=== PATIENT | female | born 1960 | race Two or more races ===

== ENCOUNTER → 2024-03-13 | Outpatient (CLI) | payer MEDICAID ==
[2024-03-13 15:32] LABS: Urine Amorphous Crystal FEW /hpf (None Seen); Urine Bacteria MANY /hpf (None Seen); Urine Blood 2+ /uL (Negative); Urine Clarity Turbid (Clear); Urine Color Colorless (Yellow); Urine Protein, UAD 2+ (Negative); Urine Specific Gravity 1.005 (1.001-1.035); Urine Urobilinogen Normal (Negative); Urine WBC 82 /hpf (0 - 5); Urine WBC Clumps PRESENT /hpf (None Seen); Urine pH 6.5 (5.0-9.0)
== END | disposition home or self-care (01) ==
LOC: LAB 14:58
PROVIDERS: ATTEND Urology
DX: R39.0 Extravasation of urine (principal)
CPT/HCPCS: 81001; 87086

== ENCOUNTER 2024-04-11 09:36 | Inpatient (IN) | payer OTHER, MEDICAID ==
[~2024-04-11] VITALS: Ht 154.9 cm; Wt 81.0 kg
[2024-04-11 12:50] LABS: Basophils # (auto) 0.1 10 ^3/uL (0-0.2); Basophils % (auto) 0.7 % (0.0-2.0); Eosinophils # (auto) 0.4 10 ^3/uL (0-0.8); Eosinophils % (auto) 4.5 % (0.0-7.0); Hematocrit 35.3 % (36.0-46.0); Hemoglobin 11.1 g/dL (12.2-16.2); Lymphocytes # (auto) 1.4 10 ^3/uL (0.4-5.4); Lymphocytes % (auto) 15.5 % (10.0-50.0); Mean Corpuscular Hemoglobin 26.4 pg (28.0-32.0); Mean Corpuscular Hgb Conc. 31.5 g/dL (32.0-36.0); Mean Corpuscular Volume 83.8 fL (80.0-100.0); Monocytes # (auto) 0.3 10 ^3/uL (0-1.3); Monocytes % (auto) 3.4 % (0.0-12.0); Neutrophils % (auto) 75.9 % (37.0-80.0); Platelet Count (auto) 390 10^3/uL (140-450); Red Blood Cells 4.22 10^6/uL (4.0-5.20); Red Cell Distribution Width 18.2 % (11.8-14.3); White Blood Cell 9.3 10^3/uL (4.4-10.8)
--- NOTE | 2024-04-11 13:04 | ED.PDOC ---
History of Present Illness HPI Comments 63 y.o female presents to the ED for an evaluation of her nephrostomy tube. Patient reports she had nephrostomy tube placed on 01/2024 at a hospital in [place] s/p admission for kidney stones. Patient reports she was seen by Dr. Sunshine 2 weeks ago, was told they wanted a CT scan to make sure the kidney stone was no longer there before taking it out. Patient presents today stating she wants the tube removed as Dr. Sunshine's office nurse told her she can come in to any ED to get it removed. Patient reports allergies to Vitals BP: 133/51 HR: 75 Temp: 98.5 f SPO2: 95% RA RR: 18 Past medical history: clubs foot, DM, seizure, arthritis, depression Past surgical history: Cholecystectomy DE GUZMAN HPI: Poor Historian. Past Medcial History: Past Surgical History: REVIEW OF SYSTEMS: CONSTITUTIONAL: Denies acute: fever, diaphoresis, chills, generalized weakness. HEAD: Denies acute: headache, photophobia Eyes: Denies acute: Double vision, vision loss, eye pain, eye discharge. EARS: Denies acute: tinnitus, hearing loss, ear discharge, ear pain, THROAT: Denies acute: sore throat, swelling, difficulty swallowing , pain with swallowing, change in voice. NECK: Denies acute: neck pain, neck swelling, stiff neck. HEART: Denies acute : chest pain, palpitations, LUNGS: Denies acute: SOB, wheezing, cough, hemoptysis ABDOMEN: Denies acute: abdominal pain, Nausea, Vomiting, diarrhea, melena , hematemesis, hematochezia SKIN: Denies acute: rash, redness, lesions, itchiness. EXTREMITIES: Denies acute: calf pain, numbness, tingling, weakness, denies pain in extremity. Denies acute: Low back pain. Neuro: Denies acute: focal neurological deficit, motor or sensory focal neurological deficit, tremors, seizure like activity, confusion, dizziness, change in mental status, loss of bowel or bladder function, cauda equina like symptoms. : Denies acute: dysuria, hematuria, flank pain, increase in urinary frequency. PSYCH: Denies acute: hallucination, suicidal ideation, homicidal ideation. FEMALE: Denies acute: abnormal vaginal bleeding, foul odor, unusual discharge. PHYSICAL EXAM: General: no acute distress, awake and alert. Head: normocephalic, atraumatic. Neck: supple, trachea is midline, no swelling. Throat: Normal phonation. Eyes:, no erythema, no purulent discharge, no proptosis, no icterus. Heart: regular rate, regular rhythm, no significant murmur appreciated. Lungs: no apparent respiratory distress, Able to speak in full sentences. No wheezing, no rhonchi, no crackles. No stridors Clear to auscultation bilaterally. Abdomen: non tender to palpation, non distended, soft, no guarding, no rebound, + bowel sounds. Neuro: Awake, Alert, oriented to name, self, situation, follows commands GCS=15. Speech is normal. Skin: no petechia, no purpura, no cyanosis, non-pale, not jaundice. Lower extremities: --trace- Pitting edema no deformity, no focal swelling, no calf TTP. Makes eye contact. moves all four extremities. Face: no apparent facial droop. Noted right nephrostomy tube in place. Chief Complaint: Tube Replacement Time Seen by MD: 12:24 Reviewed Notes: Nurses Notes, Allergies Allergies: Coded Allergies: Codeine (Verified Allergy, Unknown, 04/11/24) Penicillins (Verified Allergy, Unknown, 04/11/24) Home Meds Reported Medications Insulin Glargine (Basaglar Kwikpen) 100 Unit/Ml Inj, 20 UNIT SC HS 04/11/24 Glimepiride (Glimepiride) 4 Mg Tab, 1 TAB PO BID 04/11/24 Metformin Hydrochloride (Metformin Hcl) 1,000 Mg Tab, 1 TAB PO BID 04/11/24 Losartan Potassium (Losartan Potassium) 100 Mg Tab, 1 TAB PO DAILY 04/11/24 Atorvastatin Calcium (ATORVASTATIN CALCIUM) 40 Mg Tab, 1 TAB PO HS 04/11/24 Montelukast Sodium (MONTELUKAST SODIUM) 10 Mg Tab, 1 TAB PO DAILY 04/11/24 Pantoprazole Sodium Sesquihydr (Pantoprazole Sodium) 40 Mg Tab, 1 TAB PO QAM 04/11/24 Sucralfate (Sucralfate) 1 Gm Tab, 1 TAB PO TID 04/11/24 Sertraline Hcl (Sertraline Hcl) 100 Mg Tab, 1 TAB PO BID 04/11/24 Discontinued Scripts Levofloxacin Hemihydrate (LEVAQUIN 500 MG) 500 Mg Tab, 500 MG PO DAILY for 7 Days, #7 TAB Prov:ANITHA HIDALGO DO 04/11/24 Information Source: Patient Mode of Arrival: Ambulatory Past Medical History PAST MEDICAL HISTORY: Arthritis, Depression, DM, HTN, Seizures Surgical History: 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 Was a procedure done?: No Differential Dx Considerations may include: Sepsis, UTI, hydronephrosis, obstruction, pyelonephritis, X-Ray, Labs, Meds, VS Vital Signs Date Time Temp Pulse Resp B/P (MAP) Pulse Ox O2 Delivery O2 Flow Rate FiO2 04/11/24 10:04 98.5 75 18 133/51 (78) 95 98.5 04/11/24 10:04 98.5 75 18 133/51 (78) 95 Lab Test 04/11/24 15:35 04/11/24 15:05 04/11/24 12:27 Range/Units Lactic Acid Level 3.9 *H 2.9 *H 0.4-2.0 mmol/L Urine Color Light-brown Yellow Urine Clarity Ex.turbid Clear Urine pH 6.0 5.0-9.0 Urine Specific [place] 1.008 1.001-1.035 Urine Protein 2+ H Negative Urine Ketones Negative Negative Urine Blood 1+ H Negative /uL Urine Nitrite Negative Negative Urine Bilirubin Negative Negative Urine Urobilinogen Normal Negative mg/dL Urine Leukocyte Esterase 3+ Negative /uL Urine RBC 49 0 - 4 /hpf Urine WBC 432 0 - 5 /hpf Urine WBC Clumps Present None Seen /hpf Urine Squamous Epithelial Cells None seen <5 /hpf Urine Bacteria Mod H None Seen /hpf Urine Mucus Few None Seen Urine Glucose Normal Normal mg/dL White Blood Count 9.3 4.4-10.8 10^3/uL Red Blood Count 4.22 4.0-5.20 10^6/uL Hemoglobin 11.1 L 12.2-16.2 g/dL Hematocrit 35.3 L 36.0-46.0 % Mean Corpuscular Volume 83.8 80.0-100.0 fL Mean Corpuscular Hemoglobin 26.4 L 28.0-32.0 pg Mean Corpuscular Hemoglobin Concent 31.5 L 32.0-36.0 g/dL Red Cell Distribution Width 18.2 H 11.8-14.3 % Platelet Count 390 140-450 10^3/uL Mean Platelet Volume 7.6 6.9-10.8 fL Neutrophils (%) (Auto) 75.9 37.0-80.0 % Lymphocytes (%) (Auto) 15.5 10.0-50.0 % Monocytes (%) (Auto) 3.4 0.0-12.0 % Eosinophils (%) (Auto) 4.5 0.0-7.0 % Basophils (%) (Auto) 0.7 0.0-2.0 % Neutrophils # (Auto) 7.0 1.6-8.6 10 ^3/uL Lymphocytes # (Auto) 1.4 0.4-5.4 10 ^3/uL Monocytes # (Auto) 0.3 0-1.3 10 ^3/uL Eosinophils # (Auto) 0.4 0-0.8 10 ^3/uL Basophils # (Auto) 0.1 0-0.2 10 ^3/uL Nucleated Red Blood Cells 0.0 % Sodium Level 139 136-145 mmol/L Potassium Level 4.6 3.5-5.1 mmol/L Chloride Level 107 98-107 mmol/L Carbon Dioxide Level 21 20-31 mmol/L Anion Gap 11 5-15 Blood Urea Nitrogen 27 H 9-23 mg/dL Creatinine 1.83 H 0.550-1.02 mg/dL Glomerular Filtration Rate Calc 31 >90 mL/min BUN/Creatinine Ratio 14.8 10.0-20.0 Serum Glucose 188 H 74-106 mg/dL Calcium Level 10.2 8.7-10.4 mg/dL Total Bilirubin 0.6 0.2-1.0 mg/dL Aspartate Amino Transferase (AST) 20 13-40 U/L Alanine Aminotransferase (ALT) 26 7-40 U/L Alkaline Phosphatase 140 H 46-116 U/L Total Protein 7.0 5.7-8.2 g/dL Albumin 4.4 3.2-4.8 g/dL Current Medications Medications (Trade) Dose Ordered Sig/Hilda Route Start Time Stop Time Status Last Admin Sodium Chloride 1,000 ml @ 1,000 mls/hr Q1H ONCE IV 11/22/24 13:45 04/11/24 14:44 DC 04/11/24 17:12 Levofloxacin (Levaquin Tablet) 500 mg ONCE ONCE PO 04/11/24 13:45 04/11/24 13:46 DC 04/11/24 17:16 Sodium Chloride 1,000 ml @ 1,000 mls/hr Q1H ONCE IV 04/11/24 16:15 04/11/24 17:14 DC 04/11/24 17:16 [place] [address] Ph: [phone] DIAGNOSTIC IMAGING Diagnostic Imaging Report : [id number] Signed PATIENT: LOUIS DE GUZMAN ACCT: [id number] UNIT: [id number] : 1960 LOC: ER ROOM / BED: / AGE / SEX: 63 / F ADM STATUS: REG ER SERVICE 1232 ORDERING PHYSICIAN: ANITHA HIDALGO DO PROCEDURE(s): ABPL - CT AB PEL WO CON-NO ORAL OR IV REASON: NEPHROSTOMY TUBE, KID STONE ORDER NUMBER(s): [id number], ACCESSION NUMBER(s): [id number] Procedure: CT CT AB PEL WO CON-NO ORAL OR IV 04/11/2024 12:34 PM Indication: NEPHROSTOMY TUBE, KID STONE Comparison Study: None available at time of dictation. Technique: Axial images were obtained and reformatted in coronal and sagittal planes. All CT scans at this medical facility are performed using dose modulation techniques as appropriate to a performed exam including the following: Automated exposure control was utilized; adjustment of the MA and/or KV according to patient size; and use of iterative reconstruction technique. CT Dose: CTDI volume is 15.18 mGy. Dose-length product is 779.8 mGy*cm FINDINGS: Lower Chest: Unremarkable. Hepatobiliary: Unremarkable. Spleen: Unremarkable. Pancreas: Unremarkable. Adrenal Glands: Mild bilateral adrenal hyperplasia. Few subcentimeter calcifications are seen in the left adrenal gland reflecting sequela of prior hemorrhage. tract: A 1.4 cm obstructing stone is seen in the left renal pelvis. A pigtail percutaneous drainage catheter is seen in the right renal inferior calyx. There is mild right hydronephrosis. Small amount of air is seen in the right renal pelvis related to recent instrumentation. Small amount of air is seen in the bladder lumen. No bladder wall thickening. No Gómez catheter is noted. The left kidney contains a subcentimeter stone in the lower pole and few small cysts that measure up to 1.3 cm. GI tract: Moderate-sized sliding hiatal hernia. No evidence of small bowel obstruction. The large bowel is unremarkable. The appendix is normal. Lymphatics: No mesenteric, retroperitoneal or periportal lymphadenopathy. Vasculature: The abdominal aorta is normal in in caliber. Pelvic Organs: Anteverted uterus. A 2.3 cm calcification is seen the uterine fundus. Bones/soft tissues: Defects. Mild levoscoliosis of the lumbar spine noted. Other: None. IMPRESSION: 1. Mild residual right hydronephrosis due to a 1.4 cm obstructing stone in the right renal pelvis. Percutaneous right renal drainage catheter terminates in the lower pole calyx. There is no hydroureter. 2. A subcentimeter nonobstructive left renal stone is seen. 3. Moderate-sized sliding hiatal hernia. 4. Myomatous uterus. ATED BY: SUSAN WHITEHEAD MD DICTATED DATE/TIME: 04/11/241323 SIGNED BY: SUSAN WHITEHEAD MD SIGNED DATE/TIME: 04/11/241323 CC: Time of 1ST Reevaluation: 13:03 Reevaluation 1ST: Unchanged Time of 2ND Reevaluation: 16:29 (The case was discussed with the urology team (HPI, physical exam, labs and diagnostic tests that were available at the time of disposition, ED course, treatment plan) on the phone. They agreed to come and evaluate the patient in the ED. VLADISLAV Lee/dr. Sunshine. They recommend not to remove the nephrostomy tube at this time) Patient Education/Counseling: Diagnosis, Treatment Family Education/Counseling: No Family Present Comments Patient presented with the above HPI.---nephrostomy tube problem---workup was initiated. patient was found with the above mentioned diagnosis. Patient was given: Levaquin and fluids. Patient ED course and VS have been stabilized. Patient has been reassessed in the ED and remained in a stable condition. Pertinent incidental findings were discussed with the patient and/or family. Patient/family voices understanding and is agreeable with plan. Patient has been observed in the ED adequate length of time to insure improvement/stability. Urology was consulted who came and evaluated the patient at bedside recommended admission to the hospital. patient was admitted to the medicine team for further evaluation and treatment of their presentation. All the reports of any imaging studies that were ordered by myself were reviewed by myself. Departure 1 Departure Time of Disposition: 16:04 Impression: Primary Impression: H/O insertion of nephrostomy tube Additional Impressions: Elevated lactic acid level Sepsis UTI (urinary tract infection) Disposition: ADMITTED INPATIENT Admit to: Tele Condition: Guarded Additional Instructions: [place] [address] Ph: [phone] DIAGNOSTIC IMAGING Diagnostic Imaging Report : [id number] Signed PATIENT: LOUIS DE GUZMAN ACCT: [id number] UNIT: [id number] : 1960 LOC: ER ROOM / BED: / AGE / SEX: 63 / F ADM STATUS: REG ER SERVICE 1232 ORDERING PHYSICIAN: ANITHA HIDALGO DO PROCEDURE(s): ABPL - CT AB PEL WO CON-NO ORAL OR IV REASON: NEPHROSTOMY TUBE, KID STONE ORDER NUMBER(s): [id number], ACCESSION NUMBER(s): [id number] Procedure: CT CT AB PEL WO CON-NO ORAL OR IV 04/11/2024 12:34 PM Indication: NEPHROSTOMY TUBE, KID STONE Comparison Study: None available at time of dictation. Technique: Axial images were obtained and reformatted in coronal and sagittal planes. All CT scans at this medical facility are performed using dose modulation techniques as appropriate to a performed exam including the following: Automated exposure control was utilized; adjustment of the MA and/or KV according to patient size; and use of iterative reconstruction technique. CT Dose: CTDI volume is 15.18 mGy. Dose-length product is 779.8 mGy*cm FINDINGS: Lower Chest: Unremarkable. Hepatobiliary: Unremarkable. Spleen: Unremarkable. Pancreas: Unremarkable. Adrenal Glands: Mild bilateral adrenal hyperplasia. Few subcentimeter calcifications are seen in the left adrenal gland reflecting sequela of prior hemorrhage. tract: A 1.4 cm obstructing stone is seen in the left renal pelvis. A pigtail percutaneous drainage catheter is seen in the right renal inferior calyx. There is mild right hydronephrosis. Small amount of air is seen in the right renal pelvis related to recent instrumentation. Small amount of air is seen in the bladder lumen. No bladder wall thickening. No Gómez catheter is noted. The left kidney contains a subcentimeter stone in the lower pole and few small cysts that measure up to 1.3 cm. GI tract: Moderate-sized sliding hiatal hernia. No evidence of small bowel obstruction. The large bowel is unremarkable. The appendix is normal. Lymphatics: No mesenteric, retroperitoneal or periportal lymphadenopathy. Vasculature: The abdominal aorta is normal in in caliber. Pelvic Organs: Anteverted uterus. A 2.3 cm calcification is seen the uterine fundus. Bones/soft tissues: Defects. Mild levoscoliosis of the lumbar spine noted. Other: None. IMPRESSION: 1. Mild residual right hydronephrosis due to a 1.4 cm obstructing stone in the right renal pelvis. Percutaneous right renal drainage catheter terminates in the lower pole calyx. There is no hydroureter. 2. A subcentimeter nonobstructive left renal stone is seen. 3. Moderate-sized sliding hiatal hernia. 4. Myomatous uterus. ATED BY: SUSAN WHITEHEAD MD DICTATED DATE/TIME: 04/11/24 1324 SIGNED BY: SUSAN WHITEHEAD MD SIGNED DATE/TIME: 04/11/24 1324 CC: Discharged With: Self Critical Care Note Critical Care Time?: No I personally scribed for ANITHA HIDALGO DO ([email or web address]) on 04/11/24 at 13:04. Electronically submitted by Vida Pena ([facility]). I personally scribed for ANITHA HIDALGO DO ([email or web address]) on 04/11/24 at 16:07. Electronically submitted by Vida Pena ([facility]). I personally scribed for ANITHA HIDALGO DO ([email or web address]) on 04/11/24 at 16:12. Electronically submitted by Vida Pena ([facility]). I personally scribed for ANITHA HIDALGO DO ([email or web address]) on 04/11/24 at 16:38. Electronically submitted by Vida Pena ([facility]). ANITHA HIDALGO DO Apr 11, 2024 13:04
[2024-04-11 13:18] LABS: Alanine Aminotransferase 26 U/L (7-40); Albumin 4.4 g/dL (3.2-4.8); Alkaline Phosphatase 140 U/L (46-116); Anion Gap 11 (5-15); Aspartate Aminotransferase 20 U/L (13-40); BUN/Creatinine Ratio 14.8 (10.0-20.0); Blood Urea Nitrogen 27 mg/dL (9-23); Calcium 10.2 mg/dL (8.7-10.4); Carbon Dioxide 21 mmol/L (20-31); Chloride 107 mmol/L (98-107); Glucose 188 mg/dL (74-106); Potassium 4.6 mmol/L (3.5-5.1); Sodium 139 mmol/L (136-145)
[2024-04-11 13:19] LABS: Bilirubin, Total 0.6 mg/dL (0.2-1.0)
[2024-04-11 13:26] LABS: Lactic Acid w/Reflex 2.9 mmol/L (0.4-2.0)
--- NOTE | 2024-04-11 13:26 | DVH ---
Procedure: CT CT AB PEL WO CON-NO ORAL OR IV 04/11/2024 12:34 PM Indication: NEPHROSTOMY TUBE, KID STONE Comparison Study: None available at time of dictation. Technique: Axial images were obtained and reformatted in coronal and sagittal planes. All CT scans at this medical facility are performed using dose modulation techniques as appropriate t o a performed exam including the following: Automated exposure control was utilized; adjustment of th e MA and/or KV according to patient size; and use of iterative reconstruction technique. CT Dose: CTDI volume is 15.18 mGy. Dose-length product is 779.8 mGy*cm FINDINGS: Lower Chest: Unremarkable. Hepatobiliary: Unremarkable. Spleen: Unremarkable. Pancreas: Unremarkable. Adrenal Glands: Mild bilateral adrenal hyperplasia. Few subcentimeter calcifications are seen in the left adrenal gland reflecting sequela of prior hemorrhage. tract: A 1.4 cm obstructing stone is seen in the left renal pelvis. A pigtail percutaneous draina ge catheter is seen in the right renal inferior calyx. There is mild right hydronephrosis. Small am ount of air is seen in the right renal pelvis related to recent instrumentation. Small amount of air is seen in the bladder lumen. No bladder wall thickening. No Gómez catheter is noted. The left kidn ey contains a subcentimeter stone in the lower pole and few small cysts that measure up to 1.3 cm. GI tract: Moderate-sized sliding hiatal hernia. No evidence of small bowel obstruction. The large bow el is unremarkable. The appendix is normal. Lymphatics: No mesenteric, retroperitoneal or periportal lymphadenopathy. Vasculature: The abdominal aorta is normal in in caliber. Pelvic Organs: Anteverted uterus. A 2.3 cm calcification is seen the uterine fundus. Bones/soft tissues: Defects. Mild levoscoliosis of the lumbar spine noted. Other: None. IMPRESSION: 1. Mild residual right hydronephrosis due to a 1.4 cm obstructing stone in the right renal pelvis. Pe rcutaneous right renal drainage catheter terminates in the lower pole calyx. There is no hydroureter. 2. A subcentimeter nonobstructive left renal stone is seen. 3. Moderate-sized sliding hiatal hernia. 4. Myomatous uterus.
[2024-04-11] MEDS ORDERED: LEVO500T91 PO (16:06)
[2024-04-11 16:38] LABS: Urine Bacteria MOD /hpf (None Seen); Urine Blood 1+ /uL (Negative); Urine Clarity Ex.Turbid (Clear); Urine Color Light-Brown (Yellow); Urine Mucus FEW (None Seen); Urine Protein, UAD 2+ (Negative); Urine Specific Gravity 1.008 (1.001-1.035); Urine Urobilinogen Normal (Negative); Urine WBC 432 /hpf (0 - 5); Urine WBC Clumps PRESENT /hpf (None Seen)
--- NOTE | 2024-04-11 17:08 | DVHINCON2 ---
Date of service: Apr 11, [address] Hidalgo Reason for Consultation nephrostomy tube History of Present Illness History Source: Patient, Family, RN Notes, MD Notes Exam Limitations: No limitations HPI 63 yo female with hx of right sided PCN placement done at [facility] [place] [facility] in January. She is pending lithotripsy with Dr. Carlos Sunshine af ter CT evaluation of stone burden. Her lactate was found to be elevated and she will be admitted for medical management. Home Meds Active Scripts Levofloxacin Hemihydrate (LEVAQUIN 500 MG) 500 Mg Tab, 500 MG PO DAILY for 7 Days, #7 TAB Prov:ANITHA HIDALGO DO 04/11/24 Review of Systems Constitutional: Malaise, Weakness H&P Exam Vital Signs Vital Signs Date Time Temp Pulse Resp B/P (MAP) Pulse Ox O2 Delivery O2 Flow Rate FiO2 04/11/24 10:04 98.5 75 18 133/51 (78) 95 98.5 General Appeara: Well developed, Well nourished, Normal Appearance, Obese Pulmonary/Respiratory: Normal inspection, Normal breath sounds, Chest non- tender, Lungs clear Cardiovascular/Chest: Normal inspection, Regular rate, Normal Rhythm Abdominal Exam: Normal bowel sounds, Soft, No tenderness, No hepatospenomegaly, No masses Neuro/Mental St: Alert, Oriented Appearance: Appropriate appearance, Appropriate insight Eye contact/ Speech: Cooperative, Good eye contact, Normal speech Skin Exam: Normal inspection, Normal color, Warm/dry Labs/Xrays [place] [id number] Ph: [phone] DIAGNOSTIC IMAGING Diagnostic Imaging Report : [id number] Signed PATIENT: LOUIS DE GUZMAN ACCT: [id number] UNIT: [id number] : 1960 LOC: ER ROOM / BED: / AGE / SEX: 63 / F ADM STATUS: REG ER SERVICE 1232 ORDERING PHYSICIAN: ANITHA HIDALGO DO PROCEDURE(s): ABPL - CT AB PEL WO CON-NO ORAL OR IV REASON: NEPHROSTOMY TUBE, KID STONE ORDER NUMBER(s): [id number], ACCESSION NUMBER(s): [id number] Procedure: CT CT AB PEL WO CON-NO ORAL OR IV 04/11/2024 12:34 PM Indication: NEPHROSTOMY TUBE, KID STONE Comparison Study: None available at time of dictation. Technique: Axial images were obtained and reformatted in coronal and sagittal planes. All CT scans at this medical facility are performed using dose modulation techniques as appropriate to a performed exam including the following: Automated exposure control was utilized; adjustment of the MA and/or KV according to patient size; and use of iterative reconstruction technique. CT Dose: CTDI volume is 15.18 mGy. Dose-length product is 779.8 mGy*cm FINDINGS: Lower Chest: Unremarkable. Hepatobiliary: Unremarkable. Spleen: Unremarkable. Pancreas: Unremarkable. Adrenal Glands: Mild bilateral adrenal hyperplasia. Few subcentimeter calcifications are seen in the left adrenal gland reflecting sequela of prior hemorrhage. tract: A 1.4 cm obstructing stone is seen in the left renal pelvis. A pigtail percutaneous drainage catheter is seen in the right renal inferior calyx. There is mild right hydronephrosis. Small amount of air is seen in the right renal pelvis related to recent instrumentation. Small amount of air is seen in the bladder lumen. No bladder wall thickening. No Gómez catheter is noted. The left kidney contains a subcentimeter stone in the lower pole and few small cysts that measure up to 1.3 cm. GI tract: Moderate-sized sliding hiatal hernia. No evidence of small bowel obstruction. The large bowel is unremarkable. The appendix is normal. Lymphatics: No mesenteric, retroperitoneal or periportal lymphadenopathy. Vasculature: The abdominal aorta is normal in in caliber. Pelvic Organs: Anteverted uterus. A 2.3 cm calcification is seen the uterine fundus. Bones/soft tissues: Defects. Mild levoscoliosis of the lumbar spine noted. Other: None. IMPRESSION: 1. Mild residual right hydronephrosis due to a 1.4 cm obstructing stone in the right renal pelvis. Percutaneous right renal drainage catheter terminates in the lower pole calyx. There is no hydroureter. 2. A subcentimeter nonobstructive left renal stone is seen. 3. Moderate-sized sliding hiatal hernia. 4. Myomatous uterus. ATED BY: SUSAN WHITEHEAD MD DICTATED DATE/TIME: 04/11/24 1324 SIGNED BY: SUSAN WHITEHEAD MD SIGNED DATE/TIME: 04/11/241323 CC: Labs Test 04/11/24 15:35 04/11/24 15:05 04/11/24 12:27 Range/Units Lactic Acid Level 3.9 *H 0.4-2.0 mmol/L Urine Color Light-brown Yellow Urine Clarity Ex.turbid Clear Urine pH 6.0 5.0-9.0 Urine Specific [place] 1.008 1.001-1.035 Urine Protein 2+ H Negative Urine Ketones Negative Negative Urine Blood 1+ H Negative /uL Urine Nitrite Negative Negative Urine Bilirubin Negative Negative Urine Urobilinogen Normal Negative mg/dL Urine Leukocyte Esterase 3+ Negative /uL Urine RBC 49 0 - 4 /hpf Urine WBC 432 0 - 5 /hpf Urine WBC Clumps Present None Seen /hpf Urine Squamous Epithelial Cells None seen <5 /hpf Urine Bacteria Mod H None Seen /hpf Urine Mucus Few None Seen Urine Glucose Normal Normal mg/dL White Blood Count 9.3 4.4-10.8 10^3/uL Red Blood Count 4.22 4.0-5.20 10^6/uL Hemoglobin 11.1 L 12.2-16.2 g/dL Hematocrit 35.3 L 36.0-46.0 % Mean Corpuscular Volume 83.8 80.0-100.0 fL Mean Corpuscular Hemoglobin 26.4 L 28.0-32.0 pg Mean Corpuscular Hemoglobin Concent 31.5 L 32.0-36.0 g/dL Red Cell Distribution Width 18.2 H 11.8-14.3 % Platelet Count 390 140-450 10^3/uL Mean Platelet Volume 7.6 6.9-10.8 fL Neutrophils (%) (Auto) 75.9 37.0-80.0 % Lymphocytes (%) (Auto) 15.5 10.0-50.0 % Monocytes (%) (Auto) 3.4 0.0-12.0 % Eosinophils (%) (Auto) 4.5 0.0-7.0 % Basophils (%) (Auto) 0.7 0.0-2.0 % Neutrophils # (Auto) 7.0 1.6-8.6 10 ^3/uL Lymphocytes # (Auto) 1.4 0.4-5.4 10 ^3/uL Monocytes # (Auto) 0.3 0-1.3 10 ^3/uL Eosinophils # (Auto) 0.4 0-0.8 10 ^3/uL Basophils # (Auto) 0.1 0-0.2 10 ^3/uL Nucleated Red Blood Cells 0.0 % Sodium Level 139 136-145 mmol/L Potassium Level 4.6 3.5-5.1 mmol/L Chloride Level 107 98-107 mmol/L Carbon Dioxide Level 21 20-31 mmol/L Anion Gap 11 5-15 Blood Urea Nitrogen 27 H 9-23 mg/dL Creatinine 1.83 H 0.550-1.02 mg/dL Glomerular Filtration Rate Calc 31 >90 mL/min BUN/Creatinine Ratio 14.8 10.0-20.0 Serum Glucose 188 H 74-106 mg/dL Calcium Level 10.2 8.7-10.4 mg/dL Total Bilirubin 0.6 0.2-1.0 mg/dL Aspartate Amino Transferase (AST) 20 13-40 U/L Alanine Aminotransferase (ALT) 26 7-40 U/L Alkaline Phosphatase 140 H 46-116 U/L Total Protein 7.0 5.7-8.2 g/dL Albumin 4.4 3.2-4.8 g/dL Assessment/Plan Problem List: (1) Foreign body in genitourinary tract, part unspecified, initial encounter (2) Calculus of kidney (3) Sepsis (4) Elevated lactic acid level Plan hold all anticoagulants IR to replace PCN on Sunday. outpt Lithotripsy TBA after resolution of infection and medical optimization. POC d/w pt and daughter. Plan discussed with: Patient, Daughter, Other SASHA ROBLES NP Apr 11, 2024 17:08
[2024-04-11] MEDS: SODIUM CHLORIDE 0.9% 1,000 ML IV ONE ×3 (17:12→18:15)
[2024-04-11] MEDS: levoFLOXacin 500 MG TAB PO ONE (17:16)
[2024-04-11] MEDS ORDERED: ACETAMINOPHEN 325 MG TAB PO PRN (18:00)
[2024-04-11] MEDS ORDERED: DOCUSATE SOD 100 MG CAP PO PRN (18:00)
[2024-04-11] MEDS ORDERED: HYDROcodone-ACET 5/325MG TAB PO PRN (18:00)
[2024-04-11] MEDS ORDERED: ONDANSETRON HCL 4 MG/2 ML VIAL IV PRN (18:00)
[2024-04-11] MEDS ORDERED: INSU1INJ19 SC (18:08)
[2024-04-11] MEDS ORDERED: METF-372 PO (18:08)
[2024-04-11] MEDS ORDERED: LOSA-535 PO (18:08)
[2024-04-11] MEDS ORDERED: MONT-8 PO (18:08)
[2024-04-11] MEDS ORDERED: PANT40T PO (18:08)
[2024-04-11] MEDS ORDERED: SERT-160 PO (18:08)
[2024-04-11] MEDS ORDERED: SUCR1TAB PO (18:08)
[2024-04-11] MEDS ORDERED: ATOR40TA52 PO (18:08)
[2024-04-11] MEDS ORDERED: GLIM4TAB42 PO (18:08)
[2024-04-11] MEDS ORDERED: DEXTROSE (50%) 50ML SYRG IV PRN (18:15)
--- NOTE | 2024-04-11 18:26 | DVHHP2 ---
History of Present Illness Reason for Visit: Nephrostomy tube History of Present Illness Beatris Sinclair is a 63-year-old female with past medical history of diabetes, seizures, arthritis, depression, hypertension, and hyperlipidemia, who came in due to her nephrostomy tube. Patient had a nephrostomy tube placed at a hospital in [place] due to an obstructing kidney stone. She was following up with Dr. Sunshine and wanted the tube out. He told her that she would need a follow up CT to check on the stone prior to the tube coming out. The CT completed showed the stone is still obstructing. Patient has a UTI, and lactic acidosis. She will be admitted. The nephrostomy tube will need to be replaced. Patient was explained to what the plan of care is and why and she is agreeable with the plan of care. Review of Systems Constitutional: No: Fever, Chills, Sweats, Weakness, Malaise, Other Eyes: No: Pain, Vision change, Conjunctivae inflammation, Eyelid inflammation, Other, Redness ENT: No: Ear pain, Ear discharge, Nose pain, Nose discharge, Nose congestion, Mouth pain, Mouth swelling, Throat pain, Throat swelling, Other Respiratory: No: Cough, Dry, Shortness of breath, SOB with excertion, Wheezing, Hemoptysis, Pleuritic Pain, Sputum, Wheezing, Other Cardiovascular: No: Chest Pain, Palpitations, Orthopnea, Paroxysmal Noc. Dyspnea, Edema, Lt Headedness, Other Gastrointestinal: No: Nausea, Vomiting, Abdominal Pain, Diarrhea, Constipation, Melena, Hematochezia, Other Genitourinary: No Dysuria, No Frequency, No Incontinence, No Hematuria, No Retention; Other (Kidney stones and nephrostomy tube removal) Musculoskeletal: No: other, neck pain, shoulder pain, arm pain, back pain, hand pain, leg pain, foot pain Skin: No: Rash, Lesions, Jaundice, Bruising, Other Neurological: No: Weakness, Numbness, Incoordination, Change in speech, Confusion, Seizures, Other Allergies: Coded Allergies: Codeine (Verified Allergy, Unknown, 04/11/24) Penicillins (Verified Allergy, Unknown, 04/11/24) Medications Current Medications Medications Dose Ordered Sig/Hilda Route Start Time Stop Time Status Last Admin Dose Admin Sodium Chloride 10 ml Q8HR IV 04/11/24 22:00 Acetaminophen/ Hydrocodone Bitart 1 tab Q4HP PRN PO 04/11/24 18:00 UNV Ondansetron HCl 4 mg Q4HP PRN IV 04/11/24 18:00 Docusate Sodium 100 mg BIDPRN PRN PO 04/11/24 18:00 Acetaminophen 650 mg Q6HP PRN PO 04/11/24 18:00 Morphine Sulfate 2 mg Q4HPRN PRN IV 04/11/24 18:00 UNV Diagnostic Test (Pha) 1 strip ACHS 04/11/24 22:00 Insulin Human Regular HS SC 04/11/24 22:00 Insulin Human Regular AC SC 04/12/24 07:00 Dextrose 50 ml UD PRN IV 04/11/24 18:15 Levofloxacin/ Dextrose 100 ml @ 100 mls/hr DAILY IV 04/12/24 10:00 UNV Montelukast Sodium 10 mg DAILY PO 04/12/24 10:00 UNV Pantoprazole Sodium 40 mg QAM PO 04/12/24 07:00 UNV Sucralfate 1 gm TID PO 04/11/24 22:00 UNV Patient Own Medication 1 tab HS PO 04/11/24 22:00 UNV Patient Own Medication 1 tab BID PO 04/11/24 22:00 UNV Patient Own Medication 20 unit HS SC 04/11/24 22:00 UNV Patient Own Medication 1 tab DAILY PO 04/12/24 10:00 UNV Patient Own Medication 1 tab BID PO 04/11/24 22:00 UNV Exam Vital Signs Vital Signs Date Time Temp Pulse Resp B/P (MAP) Pulse Ox O2 Delivery O2 Flow Rate FiO2 04/11/24 10:04 98.5 75 18 133/51 (78) 95 98.5 General Appearance: Alert, Oriented X3, Cooperative, mild distress HEENT: Atraumatic, PERRLA Respiratory: Clear to auscultation, Normal air movement Cardiovascular: Regular rate, Normal S1, Normal S2 Abdominal: Normal bowel sounds, Soft, No tenderness Extremities: No clubbing, No cyanosis, No edema, Normal pulses Skin: No rashes, No breakdown, No significant lesion Neuro: Normal gait, Normal speech, Strength at 5/5 X4 ext Psych/Mental Status: Mental status NL, Mood NL Labs/Xrays Labs Test 04/11/24 15:35 04/11/24 15:05 04/11/24 12:27 Range/Units Lactic Acid Level 3.9 *H 0.4-2.0 mmol/L Urine Color Light-brown Yellow Urine Clarity Ex.turbid Clear Urine pH 6.0 5.0-9.0 Urine Specific [place] 1.008 1.001-1.035 Urine Protein 2+ H Negative Urine Ketones Negative Negative Urine Blood 1+ H Negative /uL Urine Nitrite Negative Negative Urine Bilirubin Negative Negative Urine Urobilinogen Normal Negative mg/dL Urine Leukocyte Esterase 3+ Negative /uL Urine RBC 49 0 - 4 /hpf Urine WBC 432 0 - 5 /hpf Urine WBC Clumps Present None Seen /hpf Urine Squamous Epithelial Cells None seen <5 /hpf Urine Bacteria Mod H None Seen /hpf Urine Mucus Few None Seen Urine Glucose Normal Normal mg/dL White Blood Count 9.3 4.4-10.8 10^3/uL Red Blood Count 4.22 4.0-5.20 10^6/uL Hemoglobin 11.1 L 12.2-16.2 g/dL Hematocrit 35.3 L 36.0-46.0 % Mean Corpuscular Volume 83.8 80.0-100.0 fL Mean Corpuscular Hemoglobin 26.4 L 28.0-32.0 pg Mean Corpuscular Hemoglobin Concent 31.5 L 32.0-36.0 g/dL Red Cell Distribution Width 18.2 H 11.8-14.3 % Platelet Count 390 140-450 10^3/uL Mean Platelet Volume 7.6 6.9-10.8 fL Neutrophils (%) (Auto) 75.9 37.0-80.0 % Lymphocytes (%) (Auto) 15.5 10.0-50.0 % Monocytes (%) (Auto) 3.4 0.0-12.0 % Eosinophils (%) (Auto) 4.5 0.0-7.0 % Basophils (%) (Auto) 0.7 0.0-2.0 % Neutrophils # (Auto) 7.0 1.6-8.6 10 ^3/uL Lymphocytes # (Auto) 1.4 0.4-5.4 10 ^3/uL Monocytes # (Auto) 0.3 0-1.3 10 ^3/uL Eosinophils # (Auto) 0.4 0-0.8 10 ^3/uL Basophils # (Auto) 0.1 0-0.2 10 ^3/uL Nucleated Red Blood Cells 0.0 % Sodium Level 139 136-145 mmol/L Potassium Level 4.6 3.5-5.1 mmol/L Chloride Level 107 98-107 mmol/L Carbon Dioxide Level 21 20-31 mmol/L Anion Gap 11 5-15 Blood Urea Nitrogen 27 H 9-23 mg/dL Creatinine 1.83 H 0.550-1.02 mg/dL Glomerular Filtration Rate Calc 31 >90 mL/min BUN/Creatinine Ratio 14.8 10.0-20.0 Serum Glucose 188 H 74-106 mg/dL Calcium Level 10.2 8.7-10.4 mg/dL Total Bilirubin 0.6 0.2-1.0 mg/dL Aspartate Amino Transferase (AST) 20 13-40 U/L Alanine Aminotransferase (ALT) 26 7-40 U/L Alkaline Phosphatase 140 H 46-116 U/L Total Protein 7.0 5.7-8.2 g/dL Albumin 4.4 3.2-4.8 g/dL Procedure: CT CT AB PEL WO CON-NO ORAL OR IV 04/11/2024 12:34 PM FINDINGS: Lower Chest: Unremarkable. Hepatobiliary: Unremarkable. Spleen: Unremarkable. Pancreas: Unremarkable. Adrenal Glands: Mild bilateral adrenal hyperplasia. Few subcentimeter calcifications are seen in the left adrenal gland reflecting sequela of prior hemorrhage. tract: A 1.4 cm obstructing stone is seen in the left renal pelvis. A pigtail percutaneous drainage catheter is seen in the right renal inferior calyx. There is mild right hydronephrosis. Small amount of air is seen in the right renal pelvis related to recent instrumentation. Small amount of air is seen in the bladder lumen. No bladder wall thickening. No Gómez catheter is noted. The left kidney contains a subcentimeter stone in the lower pole and few small cysts that measure up to 1.3 cm. GI tract: Moderate-sized sliding hiatal hernia. No evidence of small bowel obstruction. The large bowel is unremarkable. The appendix is normal. Lymphatics: No mesenteric, retroperitoneal or periportal lymphadenopathy. Vasculature: The abdominal aorta is normal in in caliber. Pelvic Organs: Anteverted uterus. A 2.3 cm calcification is seen the uterine fundus. Bones/soft tissues: Defects. Mild levoscoliosis of the lumbar spine noted. Other: None. IMPRESSION: 1. Mild residual right hydronephrosis due to a 1.4 cm obstructing stone in the right renal pelvis. Percutaneous right renal drainage catheter terminates in the lower pole calyx. There is no hydroureter. 2. A subcentimeter nonobstructive left renal stone is seen. 3. Moderate-sized sliding hiatal hernia. 4. Myomatous uterus. Assessment/Plan Assessment/Plan Assessment: Sepsis, Bacteremia, Lactic acidosis, Obstructing kidney stone, Diabetes, Depression, Hypertension, Hyperlipidemia, Plan: Admit to Med-Surg, Urology consult, IV hydration, IV antibiotics, PT/PTT in morning, IR consult to change out nephrostomy tube, Accu checks Q AC&HS with sliding scale, Home medications reconciled, A1c, Plan discussed with: Patient My Orders Orders - RUEL AMBROCIO [employer] Procedure Category Date Status Time Admit ADMIT 04/11/24 Transmitted 17:54 Code Status CODE 04/11/24 Transmitted 17:54 2 Gm Sodium Diet DIET 04/11/24 Transmitted Dinner Sodium Chloride Lock PHA 04/11/24 In Process (Saline Lock Ns) 22:00 Hydrocodone-Acet PHA 04/11/24 Logged 5/325mg Tab ([place] 18:00 Ondansetron Hcl PHA 04/11/24 In Process (Zofran) 18:00 Docusate Sodium PHA 04/11/24 In Process Capsule (Colace 18:00 Complete Blood Count LAB 04/12/24 Verified 04:00 Comprehensive LAB 04/12/24 Verified Metabolic Panel 04:00 Condition: Serious VALENTE 04/11/24 In Process 17:54 Acetaminophen Tablet PHA 04/11/24 In Process (Tylenol Tablet) 18:00 Morphine Sulfate PHA 04/11/24 Logged Injection 18:00 Glucose Blood PHA 04/11/24 In Process (Accu-Chek Comfort 22:00 Insulin R (Human) PHA 04/11/24 In Process (Insulin R) 22:00 Insulin R (Human) PHA 04/12/24 In Process (Insulin R) 07:00 Dextrose 50% Syringe PHA 04/11/24 In Process 18:15 Sodium Chloride 0.9% PHA 04/11/24 In Process 18:15 Levofloxacin 500mg PHA 04/12/24 Logged (Levaquin 500mg/ 100m 10:00 Montelukast Tablet PHA 04/12/24 Transmitted (Singulair Tablet) 10:00 Pantoprazole Tablet PHA 04/12/24 Transmitted (Protonix Tablet) 07:00 Sucralfate Tab PHA 04/11/24 Transmitted (Carafate Tab) 22:00 (Nf) Atorvastatin PHA 04/11/24 Transmitted Calcium 22:00 (Nf) Glimepiride PHA 04/11/24 Transmitted 22:00 (Nf) Insulin Glargine PHA 04/11/24 Transmitted (Basaglar Kwikpen) 22:00 (Nf) Losartan PHA 04/12/24 Transmitted Potassium 10:00 (Nf) Sertraline Hcl PHA 04/11/24 Transmitted 22:00 Date of Service: Apr 11, 2024 Billing Provider: RUEL AMBROCIO Common Visit Codes: [id number] INP/OBS CARE (MOD) RUEL AMBROCIO Apr 11, 2024 18:26
[2024-04-11] MEDS: GLIMEPIRIDE 2 MG TAB PO SCH (19:14)
[2024-04-11] MEDS: SODIUM CHLOR 0.9% PF (SALINE LOCK) 10ML VIAL/SYR IV SCH (22:20)
[2024-04-11] MEDS: ACCU-CHEK COMFORT CURVE STRIP VI SCH (22:24)
[2024-04-11 22:30] VITALS: RESP 16; O2SAT 98
[2024-04-11] MEDS: InsuLIN REG 1unit/0.01ml Soln (100units/ml) SC SCH (22:44)
[2024-04-11] MEDS: ATORVASTATIN 20 MG TAB PO SCH (22:45)
[2024-04-11] MEDS: INSULIN LANTUS (GLARGINE) 1 /0.01ml (100units/ml) SC SCH (22:45)
[2024-04-11] MEDS: SERTRALINE HCL 50 MG TAB PO SCH (22:46)
[2024-04-11] MEDS: SUCRALFATE 1 GM TAB PO SCH (22:46)
[2024-04-12] VITALS (10 sets, daily range): BP systolic 113–195; BP diastolic 63–77; PULSE 72–88; RESP 18–20; TEMP 97.6–98.4; O2SAT 92–99
[2024-04-12] MEDS: hydrALAZINE HCL 20 MG/ML VL IV PRN
[2024-04-12 06:08] LABS: Basophils # (auto) 0.1 10 ^3/uL (0-0.2); Basophils % (auto) 0.6 % (0.0-2.0); Eosinophils # (auto) 0.3 10 ^3/uL (0-0.8); Eosinophils % (auto) 2.7 % (0.0-7.0); Hematocrit 30.4 % (36.0-46.0); Hemoglobin 10.1 g/dL (12.2-16.2); Lymphocytes # (auto) 1.3 10 ^3/uL (0.4-5.4); Lymphocytes % (auto) 12.3 % (10.0-50.0); Mean Corpuscular Hemoglobin 27.2 pg (28.0-32.0); Mean Corpuscular Hgb Conc. 33.1 g/dL (32.0-36.0); Mean Corpuscular Volume 82.1 fL (80.0-100.0); Monocytes # (auto) 0.6 10 ^3/uL (0-1.3); Monocytes % (auto) 5.6 % (0.0-12.0); Neutrophils # (auto) 8.5 10 ^3/uL (1.6-8.6); Neutrophils % (auto) 78.8 % (37.0-80.0); Platelet Count (auto) 294 10^3/uL (140-450); Red Cell Distribution Width 17.7 % (11.8-14.3); White Blood Cell 10.8 10^3/uL (4.4-10.8)
[2024-04-12 06:11] LABS: INR 1.08 (0.9-1.15); Partial Thromboplastin Time 29.2 SEC (24.5-34.5); Prothrombin Time 11.4 sec (9.3-11.8)
[2024-04-12] MEDS: InsuLIN REG 1unit/0.01ml Soln (100units/ml) SC SCH (06:12)
[2024-04-12] MEDS: PANTOPRAZOLE 40 MG TAB PO SCH (06:16)
[2024-04-12 06:18] LABS: Alanine Aminotransferase 23 U/L (7-40); Alkaline Phosphatase 113 U/L (46-116); Anion Gap 10 (5-15); BUN/Creatinine Ratio 16.9 (10.0-20.0); Blood Urea Nitrogen 28 mg/dL (9-23); Calcium 9.6 mg/dL (8.7-10.4); Carbon Dioxide 20 mmol/L (20-31); Chloride 113 mmol/L (98-107); Glucose 69 mg/dL (74-106); Potassium 3.9 mmol/L (3.5-5.1); Sodium 143 mmol/L (136-145)
[2024-04-12 06:19] LABS: Albumin 3.8 g/dL (3.2-4.8); Aspartate Aminotransferase 14 U/L (13-40); Bilirubin, Total 0.5 mg/dL (0.2-1.0)
[2024-04-12] MEDS: levoFLOXacin 500MG 100 ML IV ONE (10:14)
[2024-04-12] MEDS: MONTELUKAST SODIUM 10 MG TAB PO SCH (10:14)
[2024-04-12] MEDS: LOSARTAN POTASSIUM 50 MG TAB PO SCH (10:15)
--- NOTE | 2024-04-12 20:06 | DVHPN2 ---
Assessment/Plan Assessment/Plan Progress note Subjective 62-year-old female admitted for sepsis. Started on IV antibiotics, plan to switch nephrostomy tube on Sunday. Stable hemodynamic Objective Physical exam Alert, oriented x3 PERRLA No JVD Clear breath sounds bilaterally S1-S2 regular rate and rhythm no murmur Abdomen soft nontender, no organomegaly Nephrostomy tube Moving all four extremities No lower extremity edema Lab Normocytic anemia Elevated creatinine Elevated lactic acid Hyperglycemia Elevated alk-phos UA with bacteria and leukocyte esterase Proteinuria Microscopic hematuria Imaging CT abdomen pelvis with mild tried hydronephrosis, status post nephrostomy tube, nonobstructing kidney stone, sliding hiatal hernia, myomatous uterus uterus Assessment and plan Sepsis Possible UTI Hydronephrosis secondary to obstructing ureteral stone Kidney stone Hypertension Diabetes mellitus IV fluid resuscitation Empiric antibiotic Consult Radiology for nephrostomy tube switch on Sunday Resume home hypertension medication Avoid IV antihypertensive Pain management Basal bolus insulin regimen Discontinue oral diabetic agents Fingerstick a.c. HS Replete electrolytes Diet diabetic DVT prophylaxis SCD Plan discussed with: Patient Date of Service: Apr 12, 2024 Billing Provider: JAYCEE LUCIANO MD Common Visit Codes: [id number] INP/OBS CARE(HIGH) JAYCEE LUCIANO MD Apr 12, 2024 20:06
[2024-04-13] VITALS (8 sets, daily range): BP systolic 151–187; BP diastolic 69–93; PULSE 75–89; RESP 18–20; TEMP 98–98.8; O2SAT 92–98
[2024-04-13] MEDS: hydrALAZINE HCL 20 MG/ML VL IV PRN (05:05)
[2024-04-13 05:39] LABS: Basophils # (auto) 0 10 ^3/uL (0-0.2); Lymphocytes # (auto) 1.3 10 ^3/uL (0.4-5.4); Monocytes # (auto) 0.5 10 ^3/uL (0-1.3); Neutrophils # (auto) 4.5 10 ^3/uL (1.6-8.6); Red Blood Cells 3.68 10^6/uL (4.0-5.20)
[2024-04-13 05:40] LABS: Hemoglobin 9.9 g/dL (12.2-16.2)
[2024-04-13 05:43] LABS: Chloride 112 mmol/L (98-107); Sodium 143 mmol/L (136-145)
[2024-04-13 05:44] LABS: Anion Gap 9 (5-15); Basophils % (auto) 0.3 % (0.0-2.0); Calcium 9.9 mg/dL (8.7-10.4); Carbon Dioxide 22 mmol/L (20-31); Eosinophils # (auto) 0.3 10 ^3/uL (0-0.8); Eosinophils % (auto) 4.8 % (0.0-7.0); Mean Corpuscular Hgb Conc. 33.1 g/dL (32.0-36.0); Mean Corpuscular Volume 81.6 fL (80.0-100.0); Monocytes % (auto) 7.3 % (0.0-12.0); Neutrophils % (auto) 67.6 % (37.0-80.0); Nucleated Red Blood Cells % 0.1 %; Platelet Count (auto) 279 10^3/uL (140-450); Red Cell Distribution Width 18.2 % (11.8-14.3); White Blood Cell 6.7 10^3/uL (4.4-10.8)
[2024-04-13 05:49] LABS: BUN/Creatinine Ratio 13.4 (10.0-20.0); Blood Urea Nitrogen 22 mg/dL (9-23); Glucose 62 mg/dL (74-106)
[2024-04-13 05:50] LABS: Magnesium 1.8 mg/dL (1.6-2.6)
[2024-04-13 05:51] LABS: Phosphorus 4.6 mg/dL (2.4-5.1)
[2024-04-13] MEDS: levoFLOXacin 250MG 50 ML IV SCH (09:17)
[2024-04-13] MEDS: hydrALAZINE HCL 20 MG/ML VL IV ONE (17:17)
--- NOTE | 2024-04-13 18:08 | DVHPN2 ---
Assessment/Plan Assessment/Plan Progress note Subjective 62-year-old female admitted for sepsis. Started on IV antibiotics, plan to switch nephrostomy tube on Sunday. Stable hemodynamic patient is seen by me today during rounds status quo, pending nephrostomy tube replacement Objective Physical exam Alert, oriented x3 PERRLA No JVD Clear breath sounds bilaterally S1-S2 regular rate and rhythm no murmur Abdomen soft nontender, no organomegaly Nephrostomy tube Moving all four extremities No lower extremity edema Lab Normocytic anemia Elevated creatinine Elevated lactic acid Hyperglycemia Elevated alk-phos UA with bacteria and leukocyte esterase Proteinuria Microscopic hematuria Imaging CT abdomen pelvis with mild tried hydronephrosis, status post nephrostomy tube, nonobstructing kidney stone, sliding hiatal hernia, myomatous uterus uterus Assessment and plan Sepsis Possible UTI Hydronephrosis secondary to obstructing ureteral stone Kidney stone Hypertension Diabetes mellitus IV fluid resuscitation Empiric antibiotic Consult Radiology for nephrostomy tube switch on Sunday Resume home hypertension medication Avoid IV antihypertensive Pain management Basal bolus insulin regimen Discontinue oral diabetic agents Fingerstick a.c. HS Replete electrolytes Diet diabetic DVT prophylaxis SCD Plan discussed with: Patient My Orders Orders - JAYCEE LUCIANO MD Procedure Category Date Status Time Mirtazapine Tablet PHA 04/13/24 In Process (Remeron Tablet) 22:00 Date of Service: Apr 13, 2024 Billing Provider: JAYCEE LUCIANO MD Common Visit Codes: [id number] INP/OBS CARE(HIGH) JAYCEE LUCIANO MD Apr 13, 2024 18:08
[2024-04-13] MEDS: MORPHINE SULFATE INJ 2 MG/ml SYRG IV PRN (18:14)
[2024-04-13] MEDS: hydrALAZINE HCL 10 MG TAB PO SCH (20:24)
[2024-04-13] MEDS: MIRTAZAPINE 30 MG TAB PO SCH (21:11)
[2024-04-14] VITALS (10 sets, daily range): BP systolic 130–165; BP diastolic 58–83; PULSE 74–93; RESP 14–19; TEMP 97.7–98.1; O2SAT 93–97
[2024-04-14 06:09] LABS: Nucleated Red Blood Cells % 0.1 %
[2024-04-14 06:12] LABS: Basophils # (auto) 0 10 ^3/uL (0-0.2); Basophils % (auto) 0.5 % (0.0-2.0); Eosinophils # (auto) 0.4 10 ^3/uL (0-0.8); Eosinophils % (auto) 5.9 % (0.0-7.0); Hematocrit 35.9 % (36.0-46.0); Hemoglobin 11.6 g/dL (12.2-16.2); Lymphocytes # (auto) 1.9 10 ^3/uL (0.4-5.4); Lymphocytes % (auto) 27.1 % (10.0-50.0); Mean Corpuscular Hemoglobin 26.5 pg (28.0-32.0); Mean Corpuscular Hgb Conc. 32.2 g/dL (32.0-36.0); Mean Corpuscular Volume 82.2 fL (80.0-100.0); Monocytes # (auto) 0.6 10 ^3/uL (0-1.3); Neutrophils # (auto) 4.1 10 ^3/uL (1.6-8.6); Neutrophils % (auto) 58.5 % (37.0-80.0); Platelet Count (auto) 325 10^3/uL (140-450); Red Blood Cells 4.37 10^6/uL (4.0-5.20); Red Cell Distribution Width 18.4 % (11.8-14.3)
[2024-04-14 06:16] LABS: Anion Gap 9 (5-15); Carbon Dioxide 23 mmol/L (20-31); Chloride 111 mmol/L (98-107); Potassium 3.9 mmol/L (3.5-5.1); Sodium 143 mmol/L (136-145)
[2024-04-14 06:18] LABS: Calcium 10.3 mg/dL (8.7-10.4)
[2024-04-14 06:22] LABS: BUN/Creatinine Ratio 10.2 (10.0-20.0); Blood Urea Nitrogen 17 mg/dL (9-23); Glucose 63 mg/dL (74-106)
[2024-04-14] MEDS: amLODIPine BESYLATE 5 MG TAB PO SCH (10:00)
[2024-04-14] MEDS: LIDOCAINE 2%HCL (LOCAL ANESTH.) INJ 20ML MDV ONE (10:26)
[2024-04-14] MEDS: fentaNYL CITRATE 100 MCG/2 ML VL ONE (10:26)
[2024-04-14] MEDS: IODIXANOL 320MG/ML 100ML BTL IV ONE (10:32)
--- NOTE | 2024-04-14 12:41 | DVH ---
XY PERCUTANEOUS NEPHROSTOMY, HISTORY: NEPHRO EXCHANGE PROCEDURE: Informed consent was obtained. The patient was placed on the fluoroscopic table in a prone position and IV fentanyl administered. The right flank was prepped with chlorhexidine which was allo wed to dry and draped in the usual sterile fashion. Time out was performed. An antegrade nephrostogr am was performed to confirm position of the previous nephrostomy tube. The tube was cut and a glidewi re was inserted through the nephrostomy tube into the ureter. The prior nephrostomy tube was removed, and a new 8 Fr pigtail catheter was advanced into the renal pelvis over a wire. Completion antegrade nephrostogram demonstrates appropriate position of the new nephrostomy tube in the renal pelvis. The catheter was secured in place and connected to gravity drainage. A sterile dressing was applied. No immediate complication was identified. FLUOROSCOPY TIME: 1.7 minutes. DAP 204.37 CONTRAST USED: 10 mL. FINDINGS: Nephrostomy tube within pigtail coiled in the right renal pelvis. A kidney stone is visuali zed in the right renal pelvis. IMPRESSION: Successful exchange of a right sided nephrostomy tube, with placement of a new 8 Fr multipurpose drai nage catheter in the right sided renal pelvis. PLAN: Routine catheter care.
[2024-04-14] MEDS: hydrALAZINE HCL 10 MG TAB PO SCH (15:12)
--- NOTE | 2024-04-14 19:45 | DVHPN2 ---
Assessment/Plan Assessment/Plan Progress note Subjective 62-year-old female admitted for sepsis. Started on IV antibiotics, plan to switch nephrostomy tube on Sunday. Stable hemodynamic patient is seen by me today during rounds s/p nephrostomy tube replacement today Objective Physical exam Alert, oriented x3 PERRLA No JVD Clear breath sounds bilaterally S1-S2 regular rate and rhythm no murmur Abdomen soft nontender, no organomegaly Nephrostomy tube Moving all four extremities No lower extremity edema Lab Normocytic anemia Elevated creatinine Elevated lactic acid Hyperglycemia Elevated alk-phos UA with bacteria and leukocyte esterase Proteinuria Microscopic hematuria Imaging CT abdomen pelvis with mild tried hydronephrosis, status post nephrostomy tube, nonobstructing kidney stone, sliding hiatal hernia, myomatous uterus uterus Assessment and plan Sepsis Possible UTI Hydronephrosis secondary to obstructing ureteral stone Kidney stone Hypertension Diabetes mellitus IV fluid resuscitation Empiric antibiotic s/p new nephrostomy tube Resume home hypertension medication Avoid IV antihypertensive Pain management Basal bolus insulin regimen Discontinue oral diabetic agents Fingerstick a.c. HS Replete electrolytes Diet diabetic DVT prophylaxis SCD Plan discussed with: Patient My Orders Orders - JAYCEE LUCIANO MD Procedure Category Date Status Time Hydralazine Hcl PHA 04/14/24 In Process Tablet (Apresoline 14:00 Date of Service: Apr 14, 2024 Billing Provider: JAYCEE LUCIANO MD Common Visit Codes: [id number] INP/OBS CARE(HIGH) JAYCEE LUCIANO MD Apr 14, 2024 19:45
[2024-04-15 00:56] VITALS: BP 133/73; PULSE 86; RESP 18; TEMP 98; O2SAT 97
[2024-04-15 05:00] VITALS: BP 143/71; PULSE 79; RESP 18; TEMP 98; O2SAT 96
[2024-04-15 06:21] LABS: Basophils # (auto) 0 10 ^3/uL (0-0.2); Basophils % (auto) 0.4 % (0.0-2.0); Eosinophils # (auto) 0.4 10 ^3/uL (0-0.8); Hemoglobin 10.6 g/dL (12.2-16.2); Lymphocytes # (auto) 1.8 10 ^3/uL (0.4-5.4)
[2024-04-15 06:23] LABS: Eosinophils % (auto) 5.1 % (0.0-7.0); Hematocrit 32.5 % (36.0-46.0); Mean Corpuscular Hemoglobin 26.7 pg (28.0-32.0); Mean Corpuscular Hgb Conc. 32.6 g/dL (32.0-36.0); Mean Corpuscular Volume 81.9 fL (80.0-100.0); Monocytes # (auto) 0.6 10 ^3/uL (0-1.3); Monocytes % (auto) 7.6 % (0.0-12.0); Neutrophils # (auto) 5.4 10 ^3/uL (1.6-8.6); Neutrophils % (auto) 64.9 % (37.0-80.0); Platelet Count (auto) 291 10^3/uL (140-450); Red Blood Cells 3.96 10^6/uL (4.0-5.20); Red Cell Distribution Width 18.1 % (11.8-14.3); White Blood Cell 8.3 10^3/uL (4.4-10.8)
[2024-04-15 06:25] LABS: Calcium 9.9 mg/dL (8.7-10.4); Chloride 110 mmol/L (98-107); Sodium 144 mmol/L (136-145)
[2024-04-15 06:26] LABS: Anion Gap 11 (5-15); Carbon Dioxide 23 mmol/L (20-31)
[2024-04-15 06:31] LABS: BUN/Creatinine Ratio 12.7 (10.0-20.0); Blood Urea Nitrogen 22 mg/dL (9-23); Glucose 59 mg/dL (74-106)
[2024-04-15 08:00] VITALS: PULSE 84; RESP 16; O2SAT 98
[2024-04-15 09:00] VITALS: BP 145/74; PULSE 84; RESP 16; TEMP 98.4; O2SAT 98
[2024-04-15] MEDS ORDERED: HYDR-2792 PO (10:55)
[2024-04-15] MEDS ORDERED: LEVO500T91 PO (10:55)
[2024-04-15] MEDS ORDERED: AML5T PO (10:55)
[2024-04-15] MEDS ORDERED: MIR30T PO (10:55)
[2024-04-15 12:58] VITALS: BP 129/61; PULSE 94; RESP 18; O2SAT 97
[2024-04-15 13:39] VITALS: BP 129/61; PULSE 94; RESP 18; TEMP 98; O2SAT 97
--- NOTE | 2024-04-15 21:38 | DVHDS2 ---
Discharge Summary Date of Admission Apr 11, 2024 at 17:54 Date of Discharge: Apr 15, 2024 Labs/Diagnostic Data: Laboratory Results Test 04/15/24 11:12 04/15/24 04:49 04/14/24 04:54 04/13/24 05:04 POC Glucose 212 mg/dl (70-106) White Blood Count 8.3 10^3/uL (4.4-10.8) Red Blood Count 3.96 10^6/uL (4.0-5.20) Hemoglobin 10.6 g/dL (12.2-16.2) Hematocrit 32.5 % (36.0-46.0) Mean Corpuscular Volume 81.9 fL (80.0-100.0) Mean Corpuscular Hemoglobin 26.7 pg (28.0-32.0) Mean Corpuscular Hemoglobin Concent 32.6 g/dL (32.0-36.0) Red Cell Distribution Width 18.1 % (11.8-14.3) Platelet Count 291 10^3/uL (140-450) Mean Platelet Volume 7.5 fL (6.9-10.8) Neutrophils (%) (Auto) 64.9 % (37.0-80.0) Lymphocytes (%) (Auto) 22.0 % (10.0-50.0) Monocytes (%) (Auto) 7.6 % (0.0-12.0) Eosinophils (%) (Auto) 5.1 % (0.0-7.0) Basophils (%) (Auto) 0.4 % (0.0-2.0) Neutrophils # (Auto) 5.4 10 ^3/uL (1.6-8.6) Lymphocytes # (Auto) 1.8 10 ^3/uL (0.4-5.4) Monocytes # (Auto) 0.6 10 ^3/uL (0-1.3) Eosinophils # (Auto) 0.4 10 ^3/uL (0-0.8) Basophils # (Auto) 0 10 ^3/uL (0-0.2) Nucleated Red Blood Cells 0.0 % Sodium Level 144 mmol/L (136-145) Potassium Level 4.0 mmol/L (3.5-5.1) Chloride Level 110 mmol/L (98-107) Carbon Dioxide Level 23 mmol/L (20-31) Anion Gap 11 (5-15) Blood Urea Nitrogen 22 mg/dL (9-23) Creatinine 1.73 mg/dL (0.550-1.02) Glomerular Filtration Rate Calc 33 mL/min (>90) BUN/Creatinine Ratio 12.7 (10.0-20.0) Serum Glucose 59 mg/dL (74-106) Calcium Level 9.9 mg/dL (8.7-10.4) Lactic Acid Level 0.9 mmol/L (0.4-2.0) Phosphorus Level 4.6 mg/dL (2.4-5.1) Magnesium Level 1.8 mg/dL (1.6-2.6) Test 04/12/24 05:01 04/11/24 15:05 Prothrombin Time 11.4 sec (9.3-11.8) Prothrombin Time INR 1.08 (0.9-1.15) Activated Partial Thromboplast Time 29.2 SEC (24.5-34.5) Total Bilirubin 0.5 mg/dL (0.2-1.0) Aspartate Amino Transferase (AST) 14 U/L (13-40) Alanine Aminotransferase (ALT) 23 U/L (7-40) Alkaline Phosphatase 113 U/L (46-116) Total Protein 6.0 g/dL (5.7-8.2) Albumin 3.8 g/dL (3.2-4.8) Urine Color Light-brown (Yellow) Urine Clarity Ex.turbid (Clear) Urine pH 6.0 (5.0-9.0) Urine Specific [place] 1.008 (1.001-1.035) Urine Protein 2+ (Negative) Urine Ketones Negative (Negative) Urine Blood 1+ /uL (Negative) Urine Nitrite Negative (Negative) Urine Bilirubin Negative (Negative) Urine Urobilinogen Normal mg/dL (Negative) Urine Leukocyte Esterase 3+ /uL (Negative) Urine RBC 49 /hpf (0 - 4) Urine WBC 432 /hpf (0 - 5) Urine WBC Clumps Present /hpf (None Seen) Urine Squamous Epithelial Cells None seen /hpf (<5) Urine Bacteria Mod /hpf (None Seen) Urine Mucus Few (None Seen) Urine Glucose Normal mg/dL (Normal) Other Laboratory Tests 04/15/24 04:49 Brief Hx & Hospital Course: 63-year-old female with obstructing ureteral stone with nephrostomy referred from Urology for sepsis. Patient is started on antibiotics while inpatient, scheduled for nephrostomy switch with on 04/14. Discharge on oral antibiotics cover for possible UTI Condition at Discharge: Good Final Diagnosis/Problems List Sepsis Possible UTI Hydronephrosis secondary to obstructing ureteral stone Kidney stone Hypertension Diabetes mellitus Discharge Disposition: Home with Health Services Discharge Instruct/Medications Diet: Renal Activity: No Restrictions, As Tolerated Follow Up/Referral: follow up with urology and pcp Medications: levofloxacin for 5 days 38 Discharge Statement: "Patient was advised to return to the ER or call 911 if any headaches, dizziness, shortness of breath, chest pain, abdominal pain, bleeding, fevers, or worsening of medical condition. Patient was counseled about treatment plan, medications, possible side effects, patientverbalized understanding. All questions were answered to the best of my ability. This discharge took greater then 30 minutes in planning, reviewing documentation, counseling the patient, and discussing with other team members." ASSESSMENT ASSESSMENT Assessment Sepsis Possible UTI Hydronephrosis secondary to obstructing ureteral stone Kidney stone Hypertension Diabetes mellitus Date of Service: Apr 15, 2024 Billing Provider: JAYCEE LUCIANO MD Common Visit Codes: 73434-OVB/OBS DISCH DAY >30min JAYCEE LUCIANO MD Apr 15, 2024 21:38
== END 2024-04-15 14:45 | disposition home health service (06) | DRG 690 ==
LOC: ER 09:36 → OVERFLOW 17:54 → CENTRAL 18:03
PROVIDERS: ADMIT Nurse Practitioner Family; ATTEND Student in an Organized Health Care Education/Training Program
PROC: 0T25X0Z Change Drainage Device in Kidney, External Approach (ICD-10-PCS; principal; 2024-04-14)
DX: N13.6 Pyonephrosis (principal); E87.20 Acidosis, unspecified; E11.9 Type 2 diabetes mellitus without complications; E78.5 Hyperlipidemia, unspecified; F32.A Depression, unspecified; I10 Essential (primary) hypertension; Z90.49 Acquired absence of other specified parts of digestive tract; Z88.0 Allergy status to penicillin; Z88.5 Allergy status to narcotic agent; Z49.01 Encounter for fitting and adjustment of extracorporeal dialysis catheter; N20.0 Calculus of kidney
CPT/HCPCS: 36415; 50435; 74176; 74425; 80048; 80053; 81001; 82962; 83605; 83735; 84100; 85025; 85610; 85730; 99152; G0378; J1815; J1956; Q9967

== ENCOUNTER 2024-05-10 18:30 | Inpatient (IN) | payer OTHER, MEDICAID ==
[~2024-05-10] VITALS: Ht 154.9 cm; Wt 77.8 kg
[~2024-05-10 18:30] MED LIST: AML5T PO; ATOR40TA52 PO; GLIM4TAB42 PO; HYDR-2792 PO; INSU1INJ19 SC; LEVO500T91 PO; LOSA-535 PO; METF-372 PO; MIR30T PO; MONT-8 PO; PANT40T PO; SERT-160 PO; SUCR1TAB PO
--- NOTE | 2024-05-10 19:36 | ED.PDOC ---
History of Present Illness HPI Comments 63-year-old female came to ER due for wound check. Patient does have history of hypertension, diabetes, kidney stones, status post right nephrectomy tube 9(), status post nephrectomy tube replacement (04/14/2024). About 2 hours ago, noted the nephrectomy tube got accidentally pulled out. Patient denies any fever or pain. States that she is urinating freely, with no dysuria or gross hematuria. Chief Complaint: Wound check Time Seen by MD: 19:36 Reviewed Notes: Nurses Notes Allergies: Coded Allergies: Codeine (Verified Allergy, Unknown, 04/11/24) Penicillins (Verified Allergy, Unknown, 04/11/24) Home Meds Active Scripts Sulfamethoxazole W/Trimethopri (Bactrim Ds Tablet) 1 Tab Tb, 1 TAB PO BID for 10 Days, #20 TAB Prov:GREG MOODY MD 05/10/24 Levofloxacin Hemihydrate (LEVOFLOXACIN) 500 Mg Tab, 1 TAB PO DAILY for 5 Days, #5 TAB Prov:JAYCEE LUCIANO MD 04/15/24 Mirtazapine (Remeron) 30 Mg Tb, 15 MG PO HS for 30 Days, #15 TAB Prov:JAYCEE LUCIANO MD 04/15/24 Hydralazine Hcl (Hydralazine Hcl) 10 Mg Tab, 20 MG PO Q8HR for 30 Days, #180 TAB Prov:JAYCEE LUCIANO MD 04/15/24 Amlodipine Besylate (NORVASC TABLET) 5 Mg Tb, 10 MG PO DAILY for 30 Days, #60 TAB Prov:JAYCEE LUCIANO MD 04/15/24 Reported Medications Insulin Glargine (Basaglar Kwikpen) 100 Unit/Ml Inj, 20 UNIT SC HS 04/11/24 Glimepiride (Glimepiride) 4 Mg Tab, 1 TAB PO BID 04/11/24 Metformin Hydrochloride (Metformin Hcl) 1,000 Mg Tab, 1 TAB PO BID 04/11/24 Losartan Potassium (Losartan Potassium) 100 Mg Tab, 1 TAB PO DAILY 04/11/24 Atorvastatin Calcium (ATORVASTATIN CALCIUM) 40 Mg Tab, 1 TAB PO HS 04/11/24 Montelukast Sodium (MONTELUKAST SODIUM) 10 Mg Tab, 1 TAB PO DAILY 04/11/24 Pantoprazole Sodium Sesquihydr (Pantoprazole Sodium) 40 Mg Tab, 1 TAB PO QAM 04/11/24 Sucralfate (Sucralfate) 1 Gm Tab, 1 TAB PO TID 04/11/24 Sertraline Hcl (Sertraline Hcl) 100 Mg Tab, 1 TAB PO BID 04/11/24 Information Source: Patient Mode of Arrival: Ambulatory Severity: Moderate Timing: Hours Duration: Since onset Prehospital treatment: None Past Medical History PAST MEDICAL HISTORY: Arthritis, Depression, DM, HTN, Kidney Stones, Seizures Surgical History: Cholecystectomy Surgical History (Other): Right nephrostomy tube [employer] History: Denies all [employer] Hx Family History Family History: Reviewed,noncontributory to illness Social History Smoker: Non-Smoker Alcohol: Denies ETOH Use Drugs: Denies Drug Use Lives In: Home Constitutional: denies: chills, diaphoresis, fatigue, fever, malaise, sweats, weakness, others EENTM: denies: blurred vision, double vision, ear bleeding, ear discharge, ear drainage, ear pain, ear ringing, eye pain, eye redness, hearing loss, mouth pain, mouth swelling, nasal discharge, nose bleeding, nose congestion, nose pain, photophobia, tearing, throat pain, throat swelling, voice changes, others Respiratory: denies: cough, hemoptysis, orthopnea, SOB at rest, shortness of breath, SOB with excertion, stridor, wheezing, others Cardiovascular: denies: chest pain, dizzy spells, diaphoresis, Dyspnea on exertion, edema, irregular heart beat, left arm pain, lightheadedness, palpitations, PND, syncope, others Gastrointestinal: denies: abdomen distended, abdominal pain, blood streaked bowels, constipated, diarrhea, dysphagia, difficulty swallowing, hematemesis, melena, nausea, poor appetite, poor fluid intake, rectal bleeding, rectal pain, vomiting, others Genitourinary: denies: abnormal vagina bleeding, burning, dyspareunia, dysuria, flank pain, frequency, hematuria, incontinence, pain, , vagina discharge, urgency, others Neurological: denies: dizziness, fainting, headache, left sided numbness, left sided weakness, numbness, paresthesia, pre-existing deficit, right sided numbness, right sided weakness, seizure, speech problems, tingling, tremors, weakness, others Musculoskeletal: denies: back pain, gout, joint pain, joint swelling, muscle pain, muscle stiffness, neck pain, others Integumetry: denies: bruises, change in color, change in hair/nails, dryness, laceration, lesions, lumps, rash, wounds, others Allergic/Immunocompromised: denies: Difficulty Healing, Frequent Infections, Hives, Itching, others Hematologic/Lymphatic: denies: anemia, blood clots, easy bleeding, easy bruising, swollen glands, others Endocrine: denies: excessive hunger, excessive sweating, excessive thirst, excessive urination, flushing, intolerance to cold, intolerance to heat, u nexplained weight gain, unexplained weight loss, others Psychiatric: denies: anxiety, bipolar disorder, depression, hopeless, panic disorder, schizophrenia, sleepless, suicidal, others Physical Exam General Appearance: No Apparent Distress, Normal HEENT: Normal ENT Inspection, Pharynx Normal, TMs Normal Neck: Full Range of Motion, Non-Tender, Normal, Normal Inspection Respiratory: Chest Non-Tender, Lungs Clear, No Accessory Muscle Use, No Respiratory Distress, Normal Breath Sounds Cardiovascular: No Edema, No JVD, No Murmur, No Gallop, Normal Peripheral Pulses, Regular Rate/Rhythm Breast Exam: Deferred Gastrointestinal: No Organomegaly, Non Tender, No Pulsatile Mass, Normal Bowel Sounds, Soft Genitalia: Deferred Pelvic: Deferred Rectal: Deferred Extremities: No calf tenderness, Normal capillary refill, Normal inspection, Normal range of motion, Non-tender, No pedal edema Musculoskeletal : Apperance: Normal Neurologic: Alert, hand stone polisher II-XII nml as Tested, No Motor Deficits, Normal Affect, Normal Mood, No Sensory Deficits Cerebellar Function: Normal Reflexes: Normal Skin: Dry, Normal Color, Warm Lymphatic: No Adenopathy Was a procedure done? Was a procedure done?: No Differential Dx Considerations may include: Urinary tract infection, kidney stones, dislodged nephrostomy tube X-Ray, Labs, Meds, VS Vital Signs Date Time Temp Pulse Resp B/P (MAP) Pulse Ox O2 Delivery O2 Flow Rate FiO2 05/10/24 21:46 98.4 83 17 136/65 (88) 99 98.4 05/10/24 21:46 83 17 99 Room Air* 0 21 05/10/24 19:24 99.4 86 16 112/67 (82) 98 Lab Test 05/10/24 21:17 05/10/24 19:37 Range/Units White Blood Count 9.8 4.4-10.8 10^3/uL Red Blood Count 4.28 4.0-5.20 10^6/uL Hemoglobin 11.5 L 12.2-16.2 g/dL Hematocrit 35.6 L 36.0-46.0 % Mean Corpuscular Volume 83.2 80.0-100.0 fL Mean Corpuscular Hemoglobin 26.8 L 28.0-32.0 pg Mean Corpuscular Hemoglobin Concent 32.2 32.0-36.0 g/dL Red Cell Distribution Width 16.5 H 11.8-14.3 % Platelet Count 359 140-450 10^3/uL Mean Platelet Volume 7.0 6.9-10.8 fL Neutrophils (%) (Auto) 70.2 37.0-80.0 % Lymphocytes (%) (Auto) 19.8 10.0-50.0 % Monocytes (%) (Auto) 5.8 0.0-12.0 % Eosinophils (%) (Auto) 3.9 0.0-7.0 % Basophils (%) (Auto) 0.3 0.0-2.0 % Neutrophils # (Auto) 6.9 1.6-8.6 10 ^3/uL Lymphocytes # (Auto) 1.9 0.4-5.4 10 ^3/uL Monocytes # (Auto) 0.6 0-1.3 10 ^3/uL Eosinophils # (Auto) 0.4 0-0.8 10 ^3/uL Basophils # (Auto) 0 0-0.2 10 ^3/uL Nucleated Red Blood Cells 0.1 % Prothrombin Time 10.3 9.3-11.8 sec Prothrombin Time INR 0.97 0.9-1.15 Activated Partial Thromboplast Time 26.7 24.5-34.5 SEC Sodium Level 137 136-145 mmol/L Potassium Level 5.0 3.5-5.1 mmol/L Chloride Level 106 98-107 mmol/L Carbon Dioxide Level 24 20-31 mmol/L Anion Gap 7 5-15 Blood Urea Nitrogen 21 9-23 mg/dL Creatinine 1.76 H 0.550-1.02 mg/dL Glomerular Filtration Rate Calc 32 >90 mL/min BUN/Creatinine Ratio 11.9 10.0-20.0 Serum Glucose 153 H 74-106 mg/dL Lactic Acid Level 1.6 0.4-2.0 mmol/L Calcium Level 10.4 8.7-10.4 mg/dL Total Bilirubin 0.4 0.2-1.0 mg/dL Aspartate Amino Transferase (AST) 17 13-40 U/L Alanine Aminotransferase (ALT) 19 7-40 U/L Alkaline Phosphatase 136 H 46-116 U/L Total Protein 7.0 5.7-8.2 g/dL Albumin 4.4 3.2-4.8 g/dL Urine Color Light-yellow Yellow Urine Clarity Clear Clear Urine pH 5.5 5.0-9.0 Urine Specific [place] 1.012 1.001-1.035 Urine Protein Trace H Negative Urine Ketones Negative Negative Urine Blood 2+ H Negative /uL Urine Nitrite Negative Negative Urine Bilirubin Negative Negative Urine Urobilinogen Normal Negative mg/dL Urine Leukocyte Esterase 3+ Negative /uL Urine RBC 19 0 - 4 /hpf Urine WBC 35 0 - 5 /hpf Urine Squamous Epithelial Cells Few <5 /hpf Urine Bacteria Mod H None Seen /hpf Urine Glucose Normal Normal mg/dL Current Medications Medications (Trade) Dose Ordered Sig/Hilda Route Start Time Stop Time Status Last Admin Sodium Chloride 1,000 ml @ 1,000 mls/hr Q1H ONCE IVB 05/10/24 20:45 05/10/24 21:44 DC 05/10/24 21:27 Ceftriaxone Sodium/Dextrose 50 ml @ 50 mls/hr ONCE ONCE IV 05/10/24 21:00 05/10/24 21:59 DC 05/10/24 21:36 Time of 1ST Reevaluation: 19:33 Reevaluation 1ST: Unchanged Patient Education/Counseling: Diagnosis, Treatment Family Education/Counseling: Diagnosis, Treatment Departure 1 Departure Time of Disposition: 23:00 Impression: Primary Impression: UTI (urinary tract infection) Additional Impressions: Kidney stone on right side H/O insertion of nephrostomy tube Disposition: ADMITTED INPATIENT Condition: Guarded e-Prescriptions Sulfamethoxazole W/Trimethopri (Bactrim Ds Tablet) 1 Tab Tb 1 TAB PO BID for 10 Days, #20 TAB Prov: GREG MOODY MD 05/10/24 Critical Care Note Critical Care Time?: Yes (35 min-critical care time only) Critical care comment: Total critical care time: Approximately 36 minutes Due to a high probability of clinically significant, life threatening deterioration, the patient required my highest level of preparedness to interv quentin emergently and I personally spent this critical care time directly and personally managing the patient. This critical care time included obtaining a history; examining the patient; pulse oximetry; ordering and review of studies; arranging urgent treatment with development of a management plan; evaluation of patient's response to treatment; frequent reassessment; and, discussions with other providers. This critical care time was performed to assess and manage the high probability of imminent, life-threatening deterioration that could result in multi-organ failure. It was exclusive of separately billable procedures and treating other patients. Stability Stability form required: No Heart Score Heart Score: Heart Score Response (Comments) Value History N/A 0 EKG N/A 0 Age N/A 0 Risk Factors N/A 0 Troponin N/A 0 Total 0 I personally scribed for GREG MOODY MD ([email or web address]) on 05/10/24 at 19:36. Electronically submitted by Aleks Mancini ([email or web address]). GREG MOODY MD May 10, 2024 19:36
[2024-05-10 20:16] LABS: Urine Bacteria MOD /hpf (None Seen); Urine Blood 2+ /uL (Negative); Urine Clarity Clear (Clear); Urine Color Light-Yellow (Yellow); Urine Protein, UAD TRACE (Negative); Urine Specific Gravity 1.012 (1.001-1.035); Urine Urobilinogen Normal (Negative); Urine WBC 35 /hpf (0 - 5); Urine pH 5.5 (5.0-9.0)
[2024-05-10] MEDS ORDERED: BACDST PO (20:38)
[2024-05-10] MEDS ORDERED: cefTRIAXone W LIDOCAINE 1 GM IM IM ONE (20:45)
--- NOTE | 2024-05-10 21:06 | DVH ---
Exam: CT CT AB PEL WO CON-NO ORAL OR IV History: flank pain Comparison Study: None available at time of dictation. TECHNIQUE: Multidetector CT of the abdomen was performed from lung bases to pubic symphysis. Imaging was performed without IV contrast. Axial, coronal and sagittal multiplanar reformats were obtained fr om the axial data set by the technologist. Radiation Dose Information: CT Dose: CTDI volume is 9.38 mGy. Dose-length product is 558.49 mGy*cm FINDINGS: Evaluation of solid organs is limited due to lack of intravenous contrast use. Findings: Lung Bases: No acute or significant lung base finding. Normal heart size. No pleural or pericardial effusion. Liver: The liver is normal in size. No focal lesions. Gallbladder and Biliary Tree: Unremarkable Spleen: Unremarkable Pancreas: The pancreas is grossly normal in appearance. Adrenal Glands: Unremarkable Kidneys: 14.37 x 9.9mm calculus in the right renal pelvis. Moderate hydronephrosis is noted on the r ight. Bladder: Grossly unremarkable for degree of distention. Bowel: The stomach is grossly normal in appearance moderate hiatal hernia. Small bowel and colon are normal in caliber and distribution. The appendix is not visualized; however, no secondary findings o f acute appendicitis identified. Ascites: Absent Lymphadenopathy: No mesenteric, retroperitoneal or periportal lymphadenopathy. Abdominal Wall and Mesentery: Unremarkable. Vasculature: The visualized abdominal aorta is normal in size and caliber. Evaluation of abdominal a nd pelvic vessels is limited due to lack of intravenous contrast. Pelvic Organs: Calcifications in the wall of the uterus suggests fibroids. Musculoskeletal: No aggressive focal bony lesions, acute fractures or dislocation. Soft tissues: Unremarkable IMPRESSION: 1. 14 x 9.9 mm calculus in the right renal pelvis with hydronephrosis. 2. Calcified uterine fibroids. Radiation optimization: All CT scans at this facility use at least one of these dose optimization te chniques: automated exposure control mA and/or kV adjustment per patient size (includes targeted exa ms where dose is matched to clinical indication) or iterative reconstruction. HS:Y
[2024-05-10] MEDS: SODIUM CHLORIDE 0.9% 1,000 ML IVB ONE (21:27)
[2024-05-10 21:34] LABS: Eosinophils # (auto) 0.4 10 ^3/uL (0-0.8); Lymphocytes # (auto) 1.9 10 ^3/uL (0.4-5.4); Monocytes # (auto) 0.6 10 ^3/uL (0-1.3)
[2024-05-10 21:36] LABS: Basophils # (auto) 0 10 ^3/uL (0-0.2); Basophils % (auto) 0.3 % (0.0-2.0); Eosinophils % (auto) 3.9 % (0.0-7.0); Hematocrit 35.6 % (36.0-46.0); Hemoglobin 11.5 g/dL (12.2-16.2); Lymphocytes % (auto) 19.8 % (10.0-50.0); Mean Corpuscular Hemoglobin 26.8 pg (28.0-32.0); Mean Corpuscular Hgb Conc. 32.2 g/dL (32.0-36.0); Mean Corpuscular Volume 83.2 fL (80.0-100.0); Monocytes % (auto) 5.8 % (0.0-12.0); Neutrophils # (auto) 6.9 10 ^3/uL (1.6-8.6); Neutrophils % (auto) 70.2 % (37.0-80.0); Nucleated Red Blood Cells % 0.1 %; Platelet Count (auto) 359 10^3/uL (140-450); Red Blood Cells 4.28 10^6/uL (4.0-5.20); Red Cell Distribution Width 16.5 % (11.8-14.3); White Blood Cell 9.8 10^3/uL (4.4-10.8)
[2024-05-10] MEDS: cefTRIAXone 2GM/50ML D5W 50 ML IV ONE (21:36)
[2024-05-10 21:46] VITALS: PULSE 83; RESP 17; O2SAT 99
[2024-05-10 21:48] LABS: INR 0.97 (0.9-1.15); Partial Thromboplastin Time 26.7 SEC (24.5-34.5); Prothrombin Time 10.3 sec (9.3-11.8)
[2024-05-10 21:51] LABS: Alanine Aminotransferase 19 U/L (7-40); Albumin 4.4 g/dL (3.2-4.8); Anion Gap 7 (5-15); Aspartate Aminotransferase 17 U/L (13-40); BUN/Creatinine Ratio 11.9 (10.0-20.0); Blood Urea Nitrogen 21 mg/dL (9-23); Carbon Dioxide 24 mmol/L (20-31); Chloride 106 mmol/L (98-107); Sodium 137 mmol/L (136-145)
[2024-05-10 21:52] LABS: Bilirubin, Total 0.4 mg/dL (0.2-1.0)
[2024-05-10 21:53] LABS: Alkaline Phosphatase 136 U/L (46-116); Calcium 10.4 mg/dL (8.7-10.4); Glucose 153 mg/dL (74-106)
[2024-05-11] VITALS (7 sets, daily range): BP systolic 140–174; BP diastolic 53–76; PULSE 75–90; RESP 14–18; TEMP 98–98.7; O2SAT 95–99
[2024-05-11] MEDS ORDERED: ONDANSETRON HCL 4 MG/2 ML VIAL IV PRN (09:00)
[2024-05-11] MEDS ORDERED: DEXTROSE (50%) 50ML SYRG IV PRN (09:00)
[2024-05-11] MEDS ORDERED: HYDROcodone-ACET 5/325MG TAB PO PRN (09:00)
[2024-05-11] MEDS ORDERED: MORPHINE SULFATE INJ 2 MG/ml SYRG IV PRN (09:00)
[2024-05-11] MEDS: cefTRIAXone 1GM/50ML D5W 50 ML IV SCH (09:00)
--- NOTE | 2024-05-11 09:02 | DVHHP2 ---
History of Present Illness History of Present Illness 63-year-old female w PMHx Arthritis, Depression, DM, HTN, Kidney Stones s/p R nephrostomy (01/2024 and replaced 03/2024), Seizures presents to ER due for wound check. About 2 hours ago prior to presentation to [facility] ED on 05/10, patient was sitting at home and when she stood up she noted her nephrectomy tube got accidentally pulled out. Patient denies any fever or pain. States that she is urinating freely, with no dysuria or gross hematuria. Patient denies fevers chills, bladder pain, dysuria. Review of Systems Review of Systems Per HPI Allergies: Coded Allergies: Codeine (Verified Allergy, Unknown, 04/11/24) Penicillins (Verified Allergy, Unknown, 04/11/24) Exam Vital Signs Vital Signs Date Time Temp Pulse Resp B/P (MAP) Pulse Ox O2 Delivery O2 Flow Rate FiO2 05/11/24 08:18 75 18 96 Room Air 05/11/24 08:18 136/48 (77) 05/11/24 07:20 0 21 05/11/24 04:00 98.7 98.7 Exam GEN: Healthy appearing, well-developed, NAD. Afebrile HEENT: NC/AT; MMM. CV: RRR, no m/r/g. LUNGS: CTAB, no w/r/c. ABD: Soft, NT/ND, NBS, no masses or organomegaly. Right lower back with skin opening for prior nephrostomy, without any erythema/swelling or purulent drainage EXT: skin Warm, well perfused. no rashes. No clubbing, cyanosis, or edema. NEURO: Ambulating with no limitations. No focal deficits. Labs/Xrays Labs Test 05/10/24 21:17 05/10/24 19:37 Range/Units White Blood Count 9.8 4.4-10.8 10^3/uL Red Blood Count 4.28 4.0-5.20 10^6/uL Hemoglobin 11.5 L 12.2-16.2 g/dL Hematocrit 35.6 L 36.0-46.0 % Mean Corpuscular Volume 83.2 80.0-100.0 fL Mean Corpuscular Hemoglobin 26.8 L 28.0-32.0 pg Mean Corpuscular Hemoglobin Concent 32.2 32.0-36.0 g/dL Red Cell Distribution Width 16.5 H 11.8-14.3 % Platelet Count 359 140-450 10^3/uL Mean Platelet Volume 7.0 6.9-10.8 fL Neutrophils (%) (Auto) 70.2 37.0-80.0 % Lymphocytes (%) (Auto) 19.8 10.0-50.0 % Monocytes (%) (Auto) 5.8 0.0-12.0 % Eosinophils (%) (Auto) 3.9 0.0-7.0 % Basophils (%) (Auto) 0.3 0.0-2.0 % Neutrophils # (Auto) 6.9 1.6-8.6 10 ^3/uL Lymphocytes # (Auto) 1.9 0.4-5.4 10 ^3/uL Monocytes # (Auto) 0.6 0-1.3 10 ^3/uL Eosinophils # (Auto) 0.4 0-0.8 10 ^3/uL Basophils # (Auto) 0 0-0.2 10 ^3/uL Nucleated Red Blood Cells 0.1 % Prothrombin Time 10.3 9.3-11.8 sec Prothrombin Time INR 0.97 0.9-1.15 Activated Partial Thromboplast Time 26.7 24.5-34.5 SEC Sodium Level 137 136-145 mmol/L Potassium Level 5.0 3.5-5.1 mmol/L Chloride Level 106 98-107 mmol/L Carbon Dioxide Level 24 20-31 mmol/L Anion Gap 7 5-15 Blood Urea Nitrogen 21 9-23 mg/dL Creatinine 1.76 H 0.550-1.02 mg/dL Glomerular Filtration Rate Calc 32 >90 mL/min BUN/Creatinine Ratio 11.9 10.0-20.0 Serum Glucose 153 H 74-106 mg/dL Lactic Acid Level 1.6 0.4-2.0 mmol/L Calcium Level 10.4 8.7-10.4 mg/dL Total Bilirubin 0.4 0.2-1.0 mg/dL Aspartate Amino Transferase (AST) 17 13-40 U/L Alanine Aminotransferase (ALT) 19 7-40 U/L Alkaline Phosphatase 136 H 46-116 U/L Total Protein 7.0 5.7-8.2 g/dL Albumin 4.4 3.2-4.8 g/dL Urine Color Light-yellow Yellow Urine Clarity Clear Clear Urine pH 5.5 5.0-9.0 Urine Specific [place] 1.012 1.001-1.035 Urine Protein Trace H Negative Urine Ketones Negative Negative Urine Blood 2+ H Negative /uL Urine Nitrite Negative Negative Urine Bilirubin Negative Negative Urine Urobilinogen Normal Negative mg/dL Urine Leukocyte Esterase 3+ Negative /uL Urine RBC 19 0 - 4 /hpf Urine WBC 35 0 - 5 /hpf Urine Squamous Epithelial Cells Few <5 /hpf Urine Bacteria Mod H None Seen /hpf Urine Glucose Normal Normal mg/dL Assessment/Plan Assessment/Plan Nephrostomy malfunction - consult Urology History kidney stones, right side- Complicated cystitis- UA concerning for cystitis with leukocytes, WBCs, bacteria-continue ceftriaxone Type 2 diabetes SSI, Accu-Cheks a.c. HS History of seizures continue home meds Diabetic neuropathy-continue home gabapentin History of depression continue home Zoloft Asthma-continue home Singulair Hypertension-continue home meds Hyperlipidemia-continue home meds CKD 3 - monitoring, outpatient follow up Diet carb consistent GI prophylaxis tolerating p.o. DVT prophylaxis Lovenox Med surge Full code Plan discussed with: Patient Date of Service: May 11, 2024 Billing Provider: FRANCINE CARDENAS MD Common Visit Codes: [id number] INP/OBS CARE (HIGH) FRANCINE CARDENAS MD May 11, 2024 09:01
[2024-05-11] MEDS: SERTRALINE HCL 50 MG TAB PO SCH (10:08)
[2024-05-11] MEDS: ENOXAPARIN SOD 30 MG/0.3 ML SYRINGE SC SCH (10:08)
[2024-05-11] MEDS: amLODIPine BESYLATE 5 MG TAB PO SCH (10:16)
[2024-05-11] MEDS: LOSARTAN POTASSIUM 50 MG TAB PO SCH (10:17)
[2024-05-11] MEDS: ACCU-CHEK COMFORT CURVE STRIP VI SCH (11:28)
[2024-05-11] MEDS: InsuLIN REG 1unit/0.01ml Soln (100units/ml) SC SCH (11:29)
[2024-05-11] MEDS: hydrALAZINE HCL 10 MG TAB PO SCH (14:19)
[2024-05-11] MEDS: MIRTAZAPINE 30 MG TAB PO SCH (22:38)
[2024-05-11] MEDS: ATORVASTATIN 20 MG TAB PO SCH (22:38)
[2024-05-11] MEDS: MONTELUKAST SODIUM 10 MG TAB PO SCH (22:39)
[2024-05-12] VITALS (7 sets, daily range): BP systolic 117–152; BP diastolic 59–73; PULSE 77–86; RESP 16–18; TEMP 97.8–99.5; O2SAT 94–95
[2024-05-12] MEDS: PANTOPRAZOLE 40 MG TAB PO SCH (06:23)
[2024-05-12 06:26] LABS: Basophils # (auto) 0 10 ^3/uL (0-0.2); Eosinophils # (auto) 0.3 10 ^3/uL (0-0.8); Lymphocytes # (auto) 1.2 10 ^3/uL (0.4-5.4); Neutrophils # (auto) 3.5 10 ^3/uL (1.6-8.6); Nucleated Red Blood Cells % 0.1 %
[2024-05-12 06:29] LABS: Basophils % (auto) 0.7 % (0.0-2.0); Eosinophils % (auto) 5.9 % (0.0-7.0); Lymphocytes % (auto) 21.8 % (10.0-50.0); Mean Corpuscular Hemoglobin 26.5 pg (28.0-32.0); Mean Corpuscular Hgb Conc. 32.2 g/dL (32.0-36.0); Mean Corpuscular Volume 82.2 fL (80.0-100.0); Monocytes # (auto) 0.4 10 ^3/uL (0-1.3); Monocytes % (auto) 7.9 % (0.0-12.0); Neutrophils % (auto) 63.7 % (37.0-80.0); Platelet Count (auto) 264 10^3/uL (140-450); Red Blood Cells 3.78 10^6/uL (4.0-5.20); Red Cell Distribution Width 16.1 % (11.8-14.3); White Blood Cell 5.5 10^3/uL (4.4-10.8)
[2024-05-12 06:43] LABS: Alanine Aminotransferase 18 U/L (7-40); Alkaline Phosphatase 100 U/L (46-116); Anion Gap 9 (5-15); BUN/Creatinine Ratio 10.9 (10.0-20.0); Blood Urea Nitrogen 20 mg/dL (9-23); Calcium 9.9 mg/dL (8.7-10.4); Carbon Dioxide 25 mmol/L (20-31); Potassium 4.7 mmol/L (3.5-5.1); Sodium 143 mmol/L (136-145)
[2024-05-12 06:44] LABS: Albumin 3.7 g/dL (3.2-4.8); Aspartate Aminotransferase 20 U/L (13-40)
[2024-05-12 06:45] LABS: Bilirubin, Total 0.6 mg/dL (0.2-1.0); Total Protein 5.9 g/dL (5.7-8.2)
[2024-05-12 06:49] LABS: Chloride 109 mmol/L (98-107); Glucose 139 mg/dL (74-106)
--- NOTE | 2024-05-12 13:34 | DVHPN2 ---
Reviewed: Care Plan, H&P, Labs, Medications, Previous Orders, Radiology Changes from previous H/P or p: No Changes Objective Vitals Vital Signs Date Time Temp Pulse Resp B/P (MAP) Pulse Ox O2 Delivery O2 Flow Rate FiO2 05/12/24 09:42 117/59 05/12/24 09:00 97.8 77 16 94 97.8 05/12/24 08:00 Room Air* 0 21 Intake/Output Intake and Output 05/12/24 07:00 Intake Total 500 ml Output Total 601 ml Balance -101 ml Intake Oral 500 ml Output Urine Total 600 ml Stool Total 1 ml # Voids 5 # Bowel Movements 1 Medications Current Medications Medications Dose Ordered Sig/Hilda Route Start Time Stop Time Status Last Admin Dose Admin Acetaminophen/ Hydrocodone Bitart 1 tab Q4HP PRN PO 05/11/24 09:00 Hold Ondansetron HCl 4 mg Q4HP PRN IV 05/11/24 09:00 Enoxaparin Sodium 30 mg DAILY SC 05/11/24 10:00 05/12/24 09:42 30 MG Acetaminophen 650 mg Q6HP PRN PO 05/11/24 09:00 Morphine Sulfate 2 mg Q4HPRN PRN IV 05/11/24 09:00 Hold Ceftriaxone Sodium 50 ml @ 100 mls/hr DAILY@09 IV 05/11/24 09:00 05/12/24 09:33 100 MLS/HR Diagnostic Test (Pha) 1 strip ACHS 05/11/24 11:30 05/12/24 11:30 1 STRIP Insulin Human Regular ACHS SC 05/11/24 11:30 05/12/24 12:26 6 UNITS Dextrose 50 ml UD PRN IV 05/11/24 09:00 Amlodipine Besylate 10 mg DAILY PO 05/11/24 10:00 05/12/24 09:42 10 MG Hydralazine HCl 20 mg Q8HR PO 05/11/24 14:00 05/12/24 06:22 20 MG Mirtazapine 15 mg HS PO 05/11/24 22:00 05/11/24 22:38 15 MG Montelukast Sodium 10 mg HS PO 05/11/24 22:00 05/11/24 22:39 10 MG Pantoprazole Sodium 40 mg QAM PO 05/12/24 07:00 05/12/24 06:23 40 MG Atorvastatin Calcium 40 mg HS PO 05/11/24 22:00 05/11/24 22:38 40 MG Losartan Potassium 100 mg DAILY PO 05/11/24 10:00 05/12/24 09:41 100 MG Sertraline HCl 100 mg BID PO 05/11/24 10:00 05/12/24 09:41 100 MG Laboratory Results Laboratory Tests 05/12/24 05:38 Chemistry Test 05/12/24 05:38 Albumin 3.7 g/dL (3.2-4.8) Calcium Level 9.9 mg/dL (8.7-10.4) Total Protein 5.9 g/dL (5.7-8.2) LFT Test 05/12/24 05:38 Alanine Aminotransferase (ALT) 18 U/L (7-40) Alkaline Phosphatase 100 U/L (46-116) Aspartate Amino Transferase (AST) 20 U/L (13-40) Total Bilirubin 0.6 mg/dL (0.2-1.0) Urinalysis Test 05/10/24 19:37 Urine Color Light-yellow (Yellow) Urine Clarity Clear (Clear) Urine pH 5.5 (5.0-9.0) Urine Specific [place] 1.012 (1.001-1.035) Urine Protein Trace (Negative) H Urine Ketones Negative (Negative) Urine Blood 2+ /uL (Negative) H Urine Nitrite Negative (Negative) Urine Bilirubin Negative (Negative) Urine Urobilinogen Normal mg/dL (Negative) Urine Leukocyte Esterase 3+ /uL (Negative) Urine RBC 19 /hpf (0 - 4) Urine WBC 35 /hpf (0 - 5) Urine Squamous Epithelial Cells Few /hpf (<5) Urine Bacteria Mod /hpf (None Seen) H Urine Glucose Normal mg/dL (Normal) Microbiology Microbiology Date/Time Source Procedure Growth Status 05/10/24 21:17 Blood Blood Culture - Preliminary NO GROWTH AFTER 24 HOURS OF INCUBATION. Resulted Labs and/or images reviewed: Labs reviewed by me, Image(s) reviewed by me Assessment/Plan Assessment/Plan Dislodgement of nephrostomy tube: IR consult for replacement History of right kidney stones Complicated cystitis Rocephin, urine cultures : Insulin sliding scale History of seizures Diabetic neuropathy nephropathy Depression : Zoloft Asthma Hypertension Hyperlipidemia CKD 3 Time spent 65 minutes Patient is full code Advanced care planning time 20 minutes Plan discussed with: Patient Date of Service: May 12, 2024 Billing Provider: RAHUL NEWBY MD Common Visit Codes: [id number] CARE 30-74 MIN RAHUL NEWBY MD May 12, 2024 13:34
[2024-05-13] VITALS (11 sets, daily range): BP systolic 121–157; BP diastolic 54–68; PULSE 63–87; RESP 14–20; TEMP 97.7–99.9; O2SAT 91–95
[2024-05-13] MEDS: ACETAMINOPHEN 325 MG TAB PO PRN (02:32)
[2024-05-13] MEDS: cloNIDine HCL 0.1 MG TAB PO ONE (03:09)
[2024-05-13] MEDS: MIDAZOLAM HCL 2MG/2ML 2ml VIAL (1mg/ml) ONE (09:22)
[2024-05-13] MEDS: LIDOCAINE 2%HCL (LOCAL ANESTH.) INJ 20ML MDV ONE (09:22)
[2024-05-13] MEDS: fentaNYL CITRATE 100 MCG/2 ML VL ONE (09:23)
[2024-05-13] MEDS: IODIXANOL 320MG/ML 100ML BTL IV ONE (09:23)
[2024-05-13] MEDS: cefTRIAXone 1GM/50ML D5W 50 ML IV ONE (10:16)
--- NOTE | 2024-05-13 10:28 | DVHPN2 ---
Reviewed: Care Plan, H&P, Labs, Medications, Previous Orders, Radiology Changes from previous H/P or p: No Changes Objective Vitals Vital Signs Date Time Temp Pulse Resp B/P (MAP) Pulse Ox O2 Delivery O2 Flow Rate FiO2 05/13/24 07:45 Room Air* 0 21 05/13/24 06:00 117/59 05/13/24 05:04 98.0 87 18 91 98.0 Intake/Output Intake and Output 05/13/24 07:00 Intake Total 690 ml Output Total 701 ml Balance -11 ml Intake Oral 640 ml IV Total 50 ml Output Urine Total 700 ml Stool Total 1 ml Medications Current Medications Medications Dose Ordered Sig/Hilda Route Start Time Stop Time Status Last Admin Dose Admin Acetaminophen/ Hydrocodone Bitart 1 tab Q4HP PRN PO 05/11/24 09:00 Hold Ondansetron HCl 4 mg Q4HP PRN IV 05/11/24 09:00 Enoxaparin Sodium 30 mg DAILY SC 05/11/24 10:00 05/12/24 09:42 30 MG Acetaminophen 650 mg Q6HP PRN PO 05/11/24 09:00 05/13/24 02:32 650 MG Morphine Sulfate 2 mg Q4HPRN PRN IV 05/11/24 09:00 Hold Ceftriaxone Sodium 50 ml @ 100 mls/hr DAILY@09 IV 05/11/24 09:00 05/12/24 09:33 100 MLS/HR Diagnostic Test (Pha) 1 strip ACHS 05/11/24 11:30 05/13/24 06:58 1 STRIP Insulin Human Regular ACHS SC 05/11/24 11:30 05/13/24 06:54 6 UNITS Dextrose 50 ml UD PRN IV 05/11/24 09:00 Amlodipine Besylate 10 mg DAILY PO 05/11/24 10:00 05/12/24 09:42 10 MG Hydralazine HCl 20 mg Q8HR PO 05/11/24 14:00 05/12/24 22:13 20 MG Mirtazapine 15 mg HS PO 05/11/24 22:00 05/12/24 22:13 15 MG Montelukast Sodium 10 mg HS PO 05/11/24 22:00 05/12/24 22:17 10 MG Pantoprazole Sodium 40 mg QAM PO 05/12/24 07:00 05/13/24 06:54 40 MG Atorvastatin Calcium 40 mg HS PO 05/11/24 22:00 05/12/24 22:13 40 MG Losartan Potassium 100 mg DAILY PO 05/11/24 10:00 05/12/24 09:41 100 MG Sertraline HCl 100 mg BID PO 05/11/24 10:00 05/12/24 22:13 100 MG Laboratory Results Laboratory Tests 05/12/24 05:38 Urinalysis Test 05/10/24 19:37 Urine Color Light-yellow (Yellow) Urine Clarity Clear (Clear) Urine pH 5.5 (5.0-9.0) Urine Specific [place] 1.012 (1.001-1.035) Urine Protein Trace (Negative) H Urine Ketones Negative (Negative) Urine Blood 2+ /uL (Negative) H Urine Nitrite Negative (Negative) Urine Bilirubin Negative (Negative) Urine Urobilinogen Normal mg/dL (Negative) Urine Leukocyte Esterase 3+ /uL (Negative) Urine RBC 19 /hpf (0 - 4) Urine WBC 35 /hpf (0 - 5) Urine Squamous Epithelial Cells Few /hpf (<5) Urine Bacteria Mod /hpf (None Seen) H Urine Glucose Normal mg/dL (Normal) Microbiology Microbiology Date/Time Source Procedure Growth Status 05/10/24 21:17 Blood Blood Culture - Preliminary NO GROWTH AFTER 48 HOURS OF INCUBATION. Resulted Labs and/or images reviewed: Labs reviewed by me, Image(s) reviewed by me Assessment/Plan Assessment/Plan Dislodgement of nephrostomy tube: IR consult for replacement History of right kidney stones Complicated cystitis Rocephin, urine cultures : Insulin sliding scale History of seizures Diabetic neuropathy nephropathy Depression : Zoloft Asthma Hypertension Hyperlipidemia CKD 3 Time Spent 45 minute Plan discussed with: Patient My Orders Orders - RAHUL NEWBY MD Procedure Category Date Status Time * Radiologist Consult CONS 05/12/24 Transmitted 13:34 Urine Bacterial DAVIN 05/12/24 Logged Culture 13:35 Date of Service: May 13, 2024 Billing Provider: RAHUL NEWBY MD Common Visit Codes: [id number] INP/OBS CARE(HIGH) RAHUL NEWBY MD May 13, 2024 10:28
--- NOTE | 2024-05-13 11:15 | DVH ---
XY PERCUTANEOUS NEPHROSTOMY, HISTORY: NEPHROSTOMY tube fell out. Has a kidney stone. Here for it to be replaced. PROCEDURE: Informed consent was obtained. The patient was placed on the fluoroscopic table in a prone position and IV sedation administered. 1 gram of ceftriaxone was given. The right flank was prepped with chlorhexidine which was allowed to dry and draped in the usual sterile fashion. Time out was per formed. Under fluoroscopic guidance, a [place] catheter and contrast injection was navigated through the existing nephrostomy tract. Over a glide wire, the renal pelvis and ureter were accessed and confirm ed with contrast injection. Over an [place] wire, the tract was dilated to 8 Fr , and an 8.5 [place] m ultipurpose nephrostomy tube was placed into the renal pelvis. Contrast injection was performed. The catheter was secured in place and connected to gravity drainage. A sterile dressing was applied. No immediate complication was identified. DAP 303 FLUOROSCOPY TIME: 2.8 minutes. CONTRAST USED: 10 mL . SEDATION: Dr. Olive Everett was personally responsible for the administration of moderate sedation during the procedure performed, including the use of an independent trained observer who had no other duties during the procedure. The drugs utilized were IV fentanyl and versed (see nursing log for details). The total time of supervision by the attending physician was approximately 30 minutes. FINDINGS: The right nephrostomy tube fell out. New replacement of an 8.5 Fr right nephrostomy tube in to the right renal pelvis by recannalizing the existing tract. The right kidney stone is visualized. IMPRESSION: Replacement of an 8.5 Fr right nephrostomy tube into the right renal pelvis by recannalizing the exis ting tract.
[2024-05-14 01:00] VITALS: BP 150/62; PULSE 77; RESP 19; TEMP 97.9; O2SAT 95
[2024-05-14 05:00] VITALS: BP 136/61; PULSE 136; RESP 61; TEMP 98.1; O2SAT 96
[2024-05-14 08:00] VITALS: PULSE 84; RESP 18; O2SAT 96
[2024-05-14] MEDS ORDERED: CIPR-173 PO (08:41)
--- NOTE | 2024-05-14 08:42 | DVHPN2 ---
Reviewed: Care Plan, H&P, Labs, Medications, Previous Orders, Radiology Changes from previous H/P or p: No Changes Objective Vitals Vital Signs Date Time Temp Pulse Resp B/P (MAP) Pulse Ox O2 Delivery O2 Flow Rate FiO2 05/14/24 06:16 136/61 05/14/24 05:00 98.1 136 61 96 98.1 05/13/24 20:00 Room Air* 0 21 Intake/Output Intake and Output 05/14/24 07:00 Intake Total 1685 ml Output Total 1585 ml Balance 100 ml Intake Oral 1685 ml Output Urine Total 1585 ml Medications Current Medications Medications Dose Ordered Sig/Hilda Route Start Time Stop Time Status Last Admin Dose Admin Acetaminophen/ Hydrocodone Bitart 1 tab Q4HP PRN PO 05/11/24 09:00 Hold Ondansetron HCl 4 mg Q4HP PRN IV 05/11/24 09:00 Enoxaparin Sodium 30 mg DAILY SC 05/11/24 10:00 05/12/24 09:42 30 MG Acetaminophen 650 mg Q6HP PRN PO 05/11/24 09:00 05/13/24 02:32 650 MG Morphine Sulfate 2 mg Q4HPRN PRN IV 05/11/24 09:00 Hold Ceftriaxone Sodium 50 ml @ 100 mls/hr DAILY@09 IV 05/11/24 09:00 05/12/24 09:33 100 MLS/HR Diagnostic Test (Pha) 1 strip ACHS 05/11/24 11:30 05/14/24 06:19 1 STRIP Insulin Human Regular ACHS SC 05/11/24 11:30 05/14/24 06:23 3 UNITS Dextrose 50 ml UD PRN IV 05/11/24 09:00 Amlodipine Besylate 10 mg DAILY PO 05/11/24 10:00 05/12/24 09:42 10 MG Hydralazine HCl 20 mg Q8HR PO 05/11/24 14:00 05/14/24 06:16 20 MG Mirtazapine 15 mg HS PO 05/11/24 22:00 05/13/24 21:41 15 MG Montelukast Sodium 10 mg HS PO 05/11/24 22:00 05/13/24 21:41 10 MG Pantoprazole Sodium 40 mg QAM PO 05/12/24 07:00 05/14/24 06:17 40 MG Atorvastatin Calcium 40 mg HS PO 05/11/24 22:00 05/13/24 21:41 40 MG Losartan Potassium 100 mg DAILY PO 05/11/24 10:00 05/12/24 09:41 100 MG Sertraline HCl 100 mg BID PO 05/11/24 10:00 05/13/24 21:41 100 MG Laboratory Results Laboratory Tests 05/12/24 05:38 Urinalysis Test 05/10/24 19:37 Urine Color Light-yellow (Yellow) Urine Clarity Clear (Clear) Urine pH 5.5 (5.0-9.0) Urine Specific [place] 1.012 (1.001-1.035) Urine Protein Trace (Negative) H Urine Ketones Negative (Negative) Urine Blood 2+ /uL (Negative) H Urine Nitrite Negative (Negative) Urine Bilirubin Negative (Negative) Urine Urobilinogen Normal mg/dL (Negative) Urine Leukocyte Esterase 3+ /uL (Negative) Urine RBC 19 /hpf (0 - 4) Urine WBC 35 /hpf (0 - 5) Urine Squamous Epithelial Cells Few /hpf (<5) Urine Bacteria Mod /hpf (None Seen) H Urine Glucose Normal mg/dL (Normal) Microbiology Microbiology Date/Time Source Procedure Growth Status 05/10/24 21:17 Blood Blood Culture - Preliminary NO GROWTH AFTER 72 HOURS OF INCUBATION. Resulted Labs and/or images reviewed: Labs reviewed by me, Image(s) reviewed by me Assessment/Plan Assessment/Plan Dislodgement of nephrostomy tube which has been replaced by Radiologist History of right kidney stones Complicated cystitis blood cultures negative urine cultures pending, patient feels better treated with Rocephin Insulin sliding scale History of seizures Diabetic neuropathy nephropathy Depression : Zoloft Asthma Hypertension Hyperlipidemia CKD 3 Time Spent 45 minute Plan discussed with: Patient Date of Service: May 14, 2024 Billing Provider: RAHUL NEWBY MD Common Visit Codes: [id number] INP/OBS CARE(HIGH) RAHUL NEWBY MD May 14, 2024 08:42
--- NOTE | 2024-05-14 08:47 | DVHDS2 ---
Discharge Summary Date of Admission May 11, 2024 at 08:46 Date of Discharge: May 14, 2024 Admitting Diagnosis Displaced right nephrostomy tube Wounds: None Labs/Diagnostic Data: Laboratory Results Test 05/14/24 06:18 05/12/24 05:38 05/10/24 21:17 05/10/24 19:37 POC Glucose 166 mg/dl (70-106) White Blood Count 5.5 10^3/uL (4.4-10.8) Red Blood Count 3.78 10^6/uL (4.0-5.20) Hemoglobin 10.0 g/dL (12.2-16.2) Hematocrit 31.0 % (36.0-46.0) Mean Corpuscular Volume 82.2 fL (80.0-100.0) Mean Corpuscular Hemoglobin 26.5 pg (28.0-32.0) Mean Corpuscular Hemoglobin Concent 32.2 g/dL (32.0-36.0) Red Cell Distribution Width 16.1 % (11.8-14.3) Platelet Count 264 10^3/uL (140-450) Mean Platelet Volume 7.0 fL (6.9-10.8) Neutrophils (%) (Auto) 63.7 % (37.0-80.0) Lymphocytes (%) (Auto) 21.8 % (10.0-50.0) Monocytes (%) (Auto) 7.9 % (0.0-12.0) Eosinophils (%) (Auto) 5.9 % (0.0-7.0) Basophils (%) (Auto) 0.7 % (0.0-2.0) Neutrophils # (Auto) 3.5 10 ^3/uL (1.6-8.6) Lymphocytes # (Auto) 1.2 10 ^3/uL (0.4-5.4) Monocytes # (Auto) 0.4 10 ^3/uL (0-1.3) Eosinophils # (Auto) 0.3 10 ^3/uL (0-0.8) Basophils # (Auto) 0 10 ^3/uL (0-0.2) Nucleated Red Blood Cells 0.1 % Sodium Level 143 mmol/L (136-145) Potassium Level 4.7 mmol/L (3.5-5.1) Chloride Level 109 mmol/L (98-107) Carbon Dioxide Level 25 mmol/L (20-31) Anion Gap 9 (5-15) Blood Urea Nitrogen 20 mg/dL (9-23) Creatinine 1.83 mg/dL (0.550-1.02) Glomerular Filtration Rate Calc 31 mL/min (>90) BUN/Creatinine Ratio 10.9 (10.0-20.0) Serum Glucose 139 mg/dL (74-106) Calcium Level 9.9 mg/dL (8.7-10.4) Total Bilirubin 0.6 mg/dL (0.2-1.0) Aspartate Amino Transferase (AST) 20 U/L (13-40) Alanine Aminotransferase (ALT) 18 U/L (7-40) Alkaline Phosphatase 100 U/L (46-116) Total Protein 5.9 g/dL (5.7-8.2) Albumin 3.7 g/dL (3.2-4.8) Prothrombin Time 10.3 sec (9.3-11.8) Prothrombin Time INR 0.97 (0.9-1.15) Activated Partial Thromboplast Time 26.7 SEC (24.5-34.5) Lactic Acid Level 1.6 mmol/L (0.4-2.0) Urine Color Light-yellow (Yellow) Urine Clarity Clear (Clear) Urine pH 5.5 (5.0-9.0) Urine Specific [place] 1.012 (1.001-1.035) Urine Protein Trace (Negative) Urine Ketones Negative (Negative) Urine Blood 2+ /uL (Negative) Urine Nitrite Negative (Negative) Urine Bilirubin Negative (Negative) Urine Urobilinogen Normal mg/dL (Negative) Urine Leukocyte Esterase 3+ /uL (Negative) Urine RBC 19 /hpf (0 - 4) Urine WBC 35 /hpf (0 - 5) Urine Squamous Epithelial Cells Few /hpf (<5) Urine Bacteria Mod /hpf (None Seen) Urine Glucose Normal mg/dL (Normal) Other Laboratory Tests 05/12/24 05:38 Brief Hx & Hospital Course: Patient with a history of kidney stones status post right nephrostomy tube came in because nephrostomy tube got dislodged. It was replaced with the radiologist and patient being discharged home mild UTI treated with Rocephin she will go home with Cipro p.o. she will continue all other home meds for other comorbidities. Consults/Reason for consult Radiology Operations or Procedures Replacement of the right nephrostomy tube Condition at Discharge: Fair Final Diagnosis/Problems List Dislodgement of right nephrostomy tube which has been replaced by Radiologist History of right kidney stones Complicated cystitis blood cultures negative urine cultures pending, patient feels better treated with Rocephin Insulin sliding scale History of seizures Diabetic neuropathy nephropathy Depression : Zoloft Asthma Hypertension Hyperlipidemia CKD 3 Discharge Disposition: Home Discharge Instruct/Medications Diet: Cardiac 2g Na,low cholest Activity: Light activity Follow Up/Referral: Resume all previous home medications Follow up with your primary Dr Medications: Cipro Transmitted to the pharmacy 35 (Time taken for discharge summary 35 minutes) Discharge Statement: "Patient was advised to return to the ER or call 911 if any headaches, dizziness, shortness of breath, chest pain, abdominal pain, bleeding, fevers, or worsening of medical condition. Patient was counseled about treatment plan, medications, possible side effects, patientverbalized understanding. All questions were answered to the best of my ability. This discharge took greater then 30 minutes in planning, reviewing documentation, counseling the patient, and discussing with other team members." ASSESSMENT ASSESSMENT Hospital Course Improved Assessment Dislodgement of nephrostomy tube which has been replaced by Radiologist History of right kidney stones Complicated cystitis blood cultures negative urine cultures pending, patient feels better treated with Rocephin Insulin sliding scale History of seizures Diabetic neuropathy nephropathy Depression : Zoloft Asthma Hypertension Hyperlipidemia CKD 3 Date of Service: May 14, 2024 Billing Provider: RAHUL NEWBY MD Common Visit Codes: [id number] DISCH DAY >30min RAHUL NEWBY MD May 14, 2024 08:47
[2024-05-14 09:00] VITALS: BP 143/64; PULSE 74; RESP 12; TEMP 97.8; O2SAT 94
[2024-05-14 13:00] VITALS: BP 134/62; PULSE 76; RESP 12; TEMP 99.3; O2SAT 94
== END 2024-05-14 15:20 | disposition home or self-care (01) | DRG 699 ==
LOC: ER 18:30 → OVERFLOW 05-11 08:46 → EAST 05-11 14:08
PROVIDERS: ADMIT Student in an Organized Health Care Education/Training Program; ATTEND Family Medicine
PROC: 0T25X0Z Change Drainage Device in Kidney, External Approach (ICD-10-PCS; principal; 2024-05-13)
DX: T83.022A Displacement of nephrostomy catheter, initial encounter (principal); N13.6 Pyonephrosis; N99.522 Malfunction of incontinent external stoma of urinary tract; E11.40 Type 2 diabetes mellitus with diabetic neuropathy, unspecified; J45.909 Unspecified asthma, uncomplicated; E78.5 Hyperlipidemia, unspecified; N18.30 Chronic kidney disease, stage 3 unspecified; F32.A Depression, unspecified; E11.22 Type 2 diabetes mellitus with diabetic chronic kidney disease; I12.9 Hypertensive chronic kidney disease with stage 1 through stage 4 chronic kidney disease, or unspecified chronic kidney disease; Y73.2 Prosthetic and other implants, materials and accessory gastroenterology and urology devices associated with adverse incidents; Z87.442 Personal history of urinary calculi; Z88.0 Allergy status to penicillin; Z88.5 Allergy status to narcotic agent; Z90.49 Acquired absence of other specified parts of digestive tract; Z79.899 Other long term (current) drug therapy
CPT/HCPCS: 36415; 74176; 74425; 80053; 81001; 82962; 83605; 85025; 85610; 85730; 87040; 96365; 96366; 96372; 99291; G0378; J0696; J1815; J2250; Q9967

== ENCOUNTER 2024-06-23 17:09 | Inpatient (IN) | payer OTHER, MEDICAID ==
[~2024-06-23] VITALS: Ht 152.4 cm; Wt 81.1 kg
[~2024-06-23 17:09] MED LIST changes: +BACDST PO; +CIPR-173 PO
--- NOTE | 2024-06-23 17:43 | ED.PDOC ---
General HPI Comments HPI: Poor Historian. HPI: 64-year-old female brought in by daughter presents to the ED with a chief complaint of nephrostomy tube malfunction onset today. Daughter states the patient has a nephrostomy tube due to kidney stones, tube has been replaced 3 times and has been due for a change since last month. Patient took a shower today, urine bag was changed by daughter and noticed the tube was leaking, shirt and pants were wet. Patient has urine bag on RT leg, urine normal color. Initial Vital Signs: Temp : 98.1 F BP: 137/53 HR: 71 RR: 17 SpO2: 96% Past Medical History: Arthritis, Depression, DM, HTN, kidney stone, seizure Past Surgical History: cholecystectomy, nephrostomy tube Social History: Denies smoking, ETOH, or drug use. Medications: Allergies: codeine, penicillin Past Medcial History: Kidney stones Past Surgical History: REVIEW OF SYSTEMS: CONSTITUTIONAL: Denies acute: fever, diaphoresis, chills, generalized weakness. HEAD: Denies acute: headache, photophobia Eyes: Denies acute: Double vision, vision loss, eye pain, eye discharge. EARS: Denies acute: tinnitus, hearing loss, ear discharge, ear pain, THROAT: Denies acute: sore throat, swelling, difficulty swallowing , pain with swallowing, change in voice. NECK: Denies acute: neck pain, neck swelling, stiff neck. HEART: Denies acute : chest pain, palpitations, LUNGS: Denies acute: SOB, wheezing, cough, hemoptysis ABDOMEN: Denies acute: abdominal pain, Nausea, Vomiting, diarrhea, melena , hematemesis, hematochezia SKIN: Denies acute: rash, redness, lesions, itchiness. EXTREMITIES: Denies acute: calf pain, numbness, tingling, weakness, denies pain in extremity. Denies acute: Low back pain. Neuro: Denies acute: focal neurological deficit, motor or sensory focal neurological deficit, tremors, seizure like activity, confusion, dizziness, change in mental status, loss of bowel or bladder function, cauda equina like symptoms. : Denies acute: dysuria, hematuria, flank pain, increase in urinary frequency. PSYCH: Denies acute: hallucination, suicidal ideation, homicidal ideation. FEMALE: Denies acute: abnormal vaginal bleeding, foul odor, unusual discharge. PHYSICAL EXAM: General: no acute distress, awake and alert. Head: normocephalic, atraumatic. Neck: supple, trachea is midline, no swelling. Throat: Normal phonation. Eyes:, no erythema, no purulent discharge, no proptosis, no icterus. Heart: regular rate, regular rhythm, no significant murmur appreciated. Lungs: no apparent respiratory distress, Able to speak in full sentences. No wheezing, no rhonchi, no crackles. No stridors Clear to auscultation bilaterally. Abdomen: non tender to palpation, non distended, soft, no guarding, no rebound, + bowel sounds. Obese Evaluation of the right nephrostomy tube site: No erythema, no discharge, no leaking from the insertion site itself, no tenderness to palpation, urine is normal in color in the right leg bag.. Neuro: Awake, Alert, oriented to name, self, situation, follows commands GCS=15. Speech is normal. Skin: no petechia, no purpura, no cyanosis, non-pale, not jaundice. Lower extremities: --no - Pitting edema no deformity, no focal swelling, no calf TTP. Makes eye contact. moves all four extremities. Face: no apparent facial droop. No CVA tenderness to percussion bilaterally. Chief Complaint: Wound Check Time Seen by MD: 17:13 Reviewed notes: Nurses Notes, Medications, Allergies Allergies: Coded Allergies: Codeine (Verified Allergy, Unknown, 04/11/24) Penicillins (Verified Allergy, Unknown, 04/11/24) Home Meds Active Scripts Ciprofloxacin Hcl (Cipro) 500 Mg Tab, 1 TAB PO BID, #20 TAB Prov:RAHUL NEWBY MD 05/14/24 Sulfamethoxazole W/Trimethopri (Bactrim Ds Tablet) 1 Tab Tb, 1 TAB PO BID for 10 Days, #20 TAB Prov:GREG MOODY MD 05/10/24 Levofloxacin Hemihydrate (LEVOFLOXACIN) 500 Mg Tab, 1 TAB PO DAILY for 5 Days, #5 TAB Prov:JAYCEE LUCIANO MD 04/15/24 Mirtazapine (Remeron) 30 Mg Tb, 15 MG PO HS for 30 Days, #15 TAB Prov:JAYCEE LUCIANO MD 04/15/24 Hydralazine Hcl (Hydralazine Hcl) 10 Mg Tab, 20 MG PO Q8HR for 30 Days, #180 TAB Prov:JAYCEE LUCIANO MD 04/15/24 Amlodipine Besylate (NORVASC TABLET) 5 Mg Tb, 10 MG PO DAILY for 30 Days, #60 TAB Prov:JAYCEE LUCIANO MD 04/15/24 Reported Medications Insulin Glargine (Basaglar Kwikpen) 100 Unit/Ml Inj, 20 UNIT SC HS 04/11/24 Glimepiride (Glimepiride) 4 Mg Tab, 1 TAB PO BID 04/11/24 Metformin Hydrochloride (Metformin Hcl) 1,000 Mg Tab, 1 TAB PO BID 04/11/24 Losartan Potassium (Losartan Potassium) 100 Mg Tab, 1 TAB PO DAILY 04/11/24 Atorvastatin Calcium (ATORVASTATIN CALCIUM) 40 Mg Tab, 1 TAB PO HS 04/11/24 Montelukast Sodium (MONTELUKAST SODIUM) 10 Mg Tab, 1 TAB PO DAILY 04/11/24 Pantoprazole Sodium Sesquihydr (Pantoprazole Sodium) 40 Mg Tab, 1 TAB PO QAM 04/11/24 Sucralfate (Sucralfate) 1 Gm Tab, 1 TAB PO TID 04/11/24 Sertraline Hcl (Sertraline Hcl) 100 Mg Tab, 1 TAB PO BID 04/11/24 Information Source: Patient, Relative Mode of Arrival: Ambulatory Past Medical History PAST MEDICAL HISTORY: Arthritis, Depression, DM, HTN, Kidney Stones, Seizures Surgical History: Cholecystectomy AUDIT ASSOCIATE History: Denies all AUDIT ASSOCIATE Hx Family History Family History: Reviewed,noncontributory to illness Social History Smoker: Non-Smoker Alcohol: Denies ETOH Use Drugs: Denies Drug Use Lives In: Home Was a procedure done? Was a procedure done?: No Differential Diagnosis Kidney stone (Female): N/A Urinary Problem (Female): Other (Nephrostomy tube complication, dislodgement, fracture, nephrostomy tube infection, hydronephrosis, UTI, sepsis.) X-Ray, Labs, Meds, VS Vital Signs Date Time Temp Pulse Resp B/P (MAP) Pulse Ox O2 Delivery O2 Flow Rate FiO2 06/23/24 17:21 98.1 71 17 137/53 (81) 96 Lab Test 06/23/24 20:21 06/23/24 20:02 06/23/24 18:00 Range/Units Lactic Acid Level 3.0 *H 3.6 *H 0.4-2.0 mmol/L Urine Color Yellow Yellow Urine Clarity Turbid H Clear Urine pH 5.0 5.0-9.0 Urine Specific Anderson 1.018 1.001-1.035 Urine Protein Trace H Negative Urine Ketones Negative Negative Urine Blood Negative Negative /uL Urine Nitrite Negative Negative Urine Bilirubin Negative Negative Urine Urobilinogen Normal Negative mg/dL Urine Leukocyte Esterase 3+ Negative /uL Urine RBC 4 0 - 4 /hpf Urine Microscopic WBC 92 H 0-5 /HPF Urine Squamous Epithelial Cells Few <5 /hpf Urine Amorphous Crystals Few None Seen /hpf Urine Bacteria Few H None Seen /hpf Urine Mucus Few None Seen Urine Glucose Normal Normal mg/dL White Blood Count 8.4 4.4-10.8 10^3/uL Red Blood Count 4.36 4.0-5.20 10^6/uL Hemoglobin 11.6 L 12.2-16.2 g/dL Hematocrit 35.7 L 36.0-46.0 % Mean Corpuscular Volume 82.1 80.0-100.0 fL Mean Corpuscular Hemoglobin 26.7 L 28.0-32.0 pg Mean Corpuscular Hemoglobin Concent 32.5 32.0-36.0 g/dL Red Cell Distribution Width 15.7 H 11.8-14.3 % Platelet Count 324 140-450 10^3/uL Mean Platelet Volume 7.0 6.9-10.8 fL Neutrophils (%) (Auto) 66.4 37.0-80.0 % Lymphocytes (%) (Auto) 25.6 10.0-50.0 % Monocytes (%) (Auto) 4.5 0.0-12.0 % Eosinophils (%) (Auto) 2.7 0.0-7.0 % Basophils (%) (Auto) 0.8 0.0-2.0 % Neutrophils # (Auto) 5.6 1.6-8.6 10 ^3/uL Lymphocytes # (Auto) 2.2 0.4-5.4 10 ^3/uL Monocytes # (Auto) 0.4 0-1.3 10 ^3/uL Eosinophils # (Auto) 0.2 0-0.8 10 ^3/uL Basophils # (Auto) 0.1 0-0.2 10 ^3/uL Nucleated Red Blood Cells 0.1 % Sodium Level 141 136-145 mmol/L Potassium Level 5.0 3.5-5.1 mmol/L Chloride Level 108 H 98-107 mmol/L Carbon Dioxide Level 22 20-31 mmol/L Anion Gap 11 5-15 Blood Urea Nitrogen 29 H 9-23 mg/dL Creatinine 1.84 H 0.550-1.02 mg/dL Glomerular Filtration Rate Calc 30 >90 mL/min BUN/Creatinine Ratio 15.8 10.0-20.0 Serum Glucose 140 H 74-106 mg/dL Calcium Level 10.4 8.7-10.4 mg/dL Total Bilirubin 0.4 0.2-1.0 mg/dL Aspartate Amino Transferase (AST) 24 13-40 U/L Alanine Aminotransferase (ALT) 33 7-40 U/L Alkaline Phosphatase 115 46-116 U/L Total Protein 6.4 5.7-8.2 g/dL Albumin 4.3 3.2-4.8 g/dL [place] [address] Ph: [phone] DIAGNOSTIC IMAGING Diagnostic Imaging Report : [id number] Signed PATIENT: LOUIS DE GUZMAN ACCT: [id number] UNIT: [id number] : 1960 LOC: ER ROOM / BED: / AGE / SEX: 64 / F ADM STATUS: REG ER SERVICE [id number] ORDERING PHYSICIAN: ANITHA HIDALGO DO PROCEDURE(s): ABPL - CT AB PEL WO CON-NO ORAL OR IV REASON: R nephrostomy tube leak ORDER NUMBER(s): [id number], ACCESSION NUMBER(s): [id number] EXAM: CT Abdomen and Pelvis Without Intravenous Contrast CLINICAL INDICATION: R nephrostomy tube leak TECHNIQUE: Axial computed tomography images of the abdomen and pelvis without intravenous contrast. This CT exam was performed using one or more of the following dose reduction techniques: automated exposure control, adjustment of the mA and/or kV according to patient size, and/or use of iterative re construction technique. CONTRAST: COMPARISON: CT CT AB PEL WO CON-NO ORAL OR IV on DOS: 05/10/24, CT CT AB PEL WO CON-NO ORAL OR IV on DOS: 04/11/24 FINDINGS: LUNG BASES: Unremarkable. No mass. No consolidation. MEDIASTINUM: Small esophageal hiatal hernia. ABDOMEN: LIVER: Mild hepatomegaly. GALLBLADDER AND BILE DUCTS: Unremarkable. No calcified stones. No ductal dilation. PANCREAS: Unremarkable. No ductal dilation. SPLEEN: Unremarkable. No splenomegaly. ADRENALS: Unremarkable. No mass. KIDNEYS AND URETERS: Right-sided percutaneous nephrostomy tube appears to be in proper position. No hydronephrosis 9 mm calculus of the proximal right ureter. STOMACH AND BOWEL: Fecal retention in the colon consistent with constipation. No obstruction. No mucosal thickening. PELVIS: APPENDIX: No findings to suggest acute appendicitis. BLADDER: Unremarkable. No stones. REPRODUCTIVE: Probable calcified uterine fibroid. ABDOMEN and PELVIS: INTRAPERITONEAL SPACE: Unremarkable. No free air. No significant fluid collection. BONES/JOINTS: No acute fracture. No dislocation. SOFT TISSUES: Unremarkable. VASCULATURE: Unremarkable. No abdominal aortic aneurysm. LYMPH NODES: Unremarkable. No enlarged lymph nodes. OTHER FINDINGS: . . . . IMPRESSION: 1. Right-sided percutaneous nephrostomy tube appears to be in proper position. No hydronephrosis 9 mm calculus of the proximal right ureter. 2. Small esophageal hiatal hernia. 3. Probable calcified uterine fibroid. 4. Fecal retention in the colon consistent with constipation. ATED BY: SONAL ROSS MD DICTATED DATE/TIME: 06/23/241830 SIGNED BY: SONAL ROSS MD SIGNED DATE/TIME: 06/23/241830 CC: Time of 1ST Reevaluation: 17:43 Reevaluation 1ST: Unchanged Patient Education/Counseling: Diagnosis, Treatment Family Education/Counseling: Diagnosis, Treatment Comments Patient presented with the above HPI.--nephrostomy tube site complaint----workup was initiated. patient was found with the above mentioned diagnosis. the following medications were ordered: please refer to order lists of meds and tests obtained by myself Dr. Hidalgo. Patient ED course and VS have been stabilized. Patient has been reassessed in the ED and remained in a stable condition. Pertinent incidental findings were discussed with the patient and/or family. Patient/family voices understanding and is agreeable with plan. Patient has been observed in the ED adequate length of time to insure improvement/stability. Escalation of care considered: Consideration of escalation to observation or admission Patient was found with elevated lactic acid and UTI. Patient was started on fluids and antibiotics. Patient will be admitted for complicated UTI. Patient may benefit from urology consult while she was waiting in the hospital. Patient was ADMITTED to the medicine team for further evaluation and treatment of their presentation. All the reports of any imaging studies that were ordered by myself were reviewed by myself. Departure 1 Departure Time of Disposition: 20:56 Impression: Primary Impression: Complication of nephrostomy Additional Impressions: Constipation Complicated UTI (urinary tract infection) Disposition: ADMITTED INPATIENT Admit to: Tele Condition: Guarded Additional Instructions: Additional discharge instructions: You MUST follow-up with your primary care/family doctor in 1 to 2 days. If you are unable to see your primary care/family doctor, please return to our emergency room for re-assessment and re-evaluation in 1 to 2 days. Return to the emergency room here in our facility or to the nearest ER [facility] if your symptoms change or worsen. CONSULTATIONS: you MUST Follow-up for consultation as soon as possible with: -urology in 1-2 days. Please call for appointment. You MUST call the consultants office yourself to make an appointment. You may need to arrange that through your insurance and/or your primary/family doctor. If you are unable to see the [facility] consultant in 1 to 2 days, you must return to our emergency room (or any other ER of your choice) for re-assessment and re- evaluation. Adequate fluid hydration. Increase fiber intake. Below is a copy of your radiological report for follow up: [place] [address] Ph: [phone] DIAGNOSTIC IMAGING Diagnostic Imaging Report : [id number] Signed PATIENT: LOUIS DE GUZMAN ACCT: [id number] UNIT: [id number] : 1960 LOC: ER ROOM / BED: / AGE / SEX: 64 / F ADM STATUS: REG ER SERVICE [id number] ORDERING PHYSICIAN: ANITHA HIDALGO DO PROCEDURE(s): ABPL - CT AB PEL WO CON-NO ORAL OR IV REASON: R nephrostomy tube leak ORDER NUMBER(s): [id number], ACCESSION NUMBER(s): [id number] EXAM: CT Abdomen and Pelvis Without Intravenous Contrast CLINICAL INDICATION: R nephrostomy tube leak TECHNIQUE: Axial computed tomography images of the abdomen and pelvis without intravenous contrast. This CT exam was performed using one or more of the following dose reduction techniques: automated exposure control, adjustment of the mA and/or kV according to patient size, and/or use of iterative reconstruction technique. CONTRAST: COMPARISON: CT CT AB PEL WO CON-NO ORAL OR IV on DOS: 05/10/24, CT CT AB PEL WO CON-NO ORAL OR IV on DOS: 04/11/24 FINDINGS: LUNG BASES: Unremarkable. No mass. No consolidation. MEDIASTINUM: Small esophageal hiatal hernia. ABDOMEN: LIVER: Mild hepatomegaly. GALLBLADDER AND BILE DUCTS: Unremarkable. No calcified stones. No ductal dilation. PANCREAS: Unremarkable. No ductal dilation. SPLEEN: Unremarkable. No splenomegaly. ADRENALS: Unremarkable. No mass. KIDNEYS AND URETERS: Right-sided percutaneous nephrostomy tube appears to be in proper position. No hydronephrosis 9 mm calculus of the proximal right ureter. STOMACH AND BOWEL: Fecal retention in the colon consistent with constipation. No obstruction. No mucosal thickening. PELVIS: APPENDIX: No findings to suggest acute appendicitis. BLADDER: Unremarkable. No stones. REPRODUCTIVE: Probable calcified uterine fibroid. ABDOMEN and PELVIS: INTRAPERITONEAL SPACE: Unremarkable. No free air. No significant fluid collection. BONES/JOINTS: No acute fracture. No dislocation. SOFT TISSUES: Unremarkable. VASCULATURE: Unremarkable. No abdominal aortic aneurysm. LYMPH NODES: Unremarkable. No enlarged lymph nodes. OTHER FINDINGS: . . . . IMPRESSION: 1. Right-sided percutaneous nephrostomy tube appears to be in proper position. No hydronephrosis 9 mm calculus of the proximal right ureter. 2. Small esophageal hiatal hernia. 3. Probable calcified uterine fibroid. 4. Fecal retention in the colon consistent with constipation. ATED BY: SONAL ROSS MD DICTATED DATE/TIME: 06/23/241830 SIGNED BY: SONAL ROSS MD SIGNED DATE/TIME: 06/23/241830 CC: Discharged With: Self Critical Care Note Critical Care Time?: No Heart Score Heart Score: Heart Score Response (Comments) Value History N/A 0 EKG N/A 0 Age N/A 0 Risk Factors N/A 0 Troponin N/A 0 Total 0 I personally scribed for ANITHA HIDALGO DO ([email or web address]) on 06/23/24 at 17:43. Electronically submitted by Nanda Michel ([email or web address]). I personally scribed for ANITHA HIDALGO DO ([email or web address]) on 06/23/24 at 17:51. Electronically submitted by Nanda Michel ([email or web address]). I personally scribed for ANITHA HIDALGO DO ([email or web address]) on 06/23/24 at 18:13. Electronically submitted by Nanda Michel ([email or web address]). I personally scribed for ANITHA HIDALGO DO ([email or web address]) on 06/23/24 at 20:14. Electronically submitted by Vida Pena ([facility]). ANITHA HIDALGO DO Jun 23, 2024 17:43
[2024-06-23 18:14] LABS: Basophils # (auto) 0.1 10 ^3/uL (0-0.2); Basophils % (auto) 0.8 % (0.0-2.0); Eosinophils # (auto) 0.2 10 ^3/uL (0-0.8); Eosinophils % (auto) 2.7 % (0.0-7.0); Hematocrit 35.7 % (36.0-46.0); Hemoglobin 11.6 g/dL (12.2-16.2); Lymphocytes # (auto) 2.2 10 ^3/uL (0.4-5.4); Lymphocytes % (auto) 25.6 % (10.0-50.0); Mean Corpuscular Hemoglobin 26.7 pg (28.0-32.0); Mean Corpuscular Hgb Conc. 32.5 g/dL (32.0-36.0); Mean Corpuscular Volume 82.1 fL (80.0-100.0); Monocytes # (auto) 0.4 10 ^3/uL (0-1.3); Monocytes % (auto) 4.5 % (0.0-12.0); Neutrophils # (auto) 5.6 10 ^3/uL (1.6-8.6); Neutrophils % (auto) 66.4 % (37.0-80.0); Nucleated Red Blood Cells % 0.1 %; Platelet Count (auto) 324 10^3/uL (140-450); Red Blood Cells 4.36 10^6/uL (4.0-5.20); Red Cell Distribution Width 15.7 % (11.8-14.3); White Blood Cell 8.4 10^3/uL (4.4-10.8)
--- NOTE | 2024-06-23 18:33 | DVH ---
EXAM: CT Abdomen and Pelvis Without Intravenous Contrast CLINICAL INDICATION: R nephrostomy tube leak TECHNIQUE: Axial computed tomography images of the abdomen and pelvis without intravenous contrast. This CT exam was performed using one or more of the following dose reduction techniques: automated exposure control, adjustment of the mA and/or kV according to patient size, and/or use of iterative r econstruction technique. CONTRAST: COMPARISON: CT CT AB PEL WO CON-NO ORAL OR IV on DOS: 05/10/24, CT CT AB PEL WO CON-NO ORAL OR IV o n DOS: 04/11/24 FINDINGS: LUNG BASES: Unremarkable. No mass. No consolidation. MEDIASTINUM: Small esophageal hiatal hernia. ABDOMEN: LIVER: Mild hepatomegaly. GALLBLADDER AND BILE DUCTS: Unremarkable. No calcified stones. No ductal dilation. PANCREAS: Unremarkable. No ductal dilation. SPLEEN: Unremarkable. No splenomegaly. ADRENALS: Unremarkable. No mass. KIDNEYS AND URETERS: Right-sided percutaneous nephrostomy tube appears to be in proper position. No hydronephrosis 9 mm calculus of the proximal right ureter. STOMACH AND BOWEL: Fecal retention in the colon consistent with constipation. No obstruction. No mucosal thickening. PELVIS: APPENDIX: No findings to suggest acute appendicitis. BLADDER: Unremarkable. No stones. REPRODUCTIVE: Probable calcified uterine fibroid. ABDOMEN and PELVIS: INTRAPERITONEAL SPACE: Unremarkable. No free air. No significant fluid collection. BONES/JOINTS: No acute fracture. No dislocation. SOFT TISSUES: Unremarkable. VASCULATURE: Unremarkable. No abdominal aortic aneurysm. LYMPH NODES: Unremarkable. No enlarged lymph nodes. OTHER FINDINGS: . . . . IMPRESSION: 1. Right-sided percutaneous nephrostomy tube appears to be in proper position. No hydronephrosis 9 m m calculus of the proximal right ureter. 2. Small esophageal hiatal hernia. 3. Probable calcified uterine fibroid. 4. Fecal retention in the colon consistent with constipation.
[2024-06-23 18:44] LABS: Alanine Aminotransferase 33 U/L (7-40); Albumin 4.3 g/dL (3.2-4.8); Alkaline Phosphatase 115 U/L (46-116); Anion Gap 11 (5-15); Aspartate Aminotransferase 24 U/L (13-40); BUN/Creatinine Ratio 15.8 (10.0-20.0); Bilirubin, Total 0.4 mg/dL (0.2-1.0); Carbon Dioxide 22 mmol/L (20-31); Sodium 141 mmol/L (136-145); Total Protein 6.4 g/dL (5.7-8.2)
[2024-06-23 18:48] LABS: Blood Urea Nitrogen 29 mg/dL (9-23); Calcium 10.4 mg/dL (8.7-10.4); Chloride 108 mmol/L (98-107); Glucose 140 mg/dL (74-106)
[2024-06-23 19:11] LABS: Lactic Acid w/Reflex 3.6 mmol/L (0.4-2.0)
[2024-06-23 21:23] LABS: Urine Amorphous Crystal FEW /hpf (None Seen); Urine Bacteria FEW /hpf (None Seen); Urine Blood Negative /uL (Negative); Urine Clarity Turbid (Clear); Urine Color Yellow (Yellow); Urine Mucus FEW (None Seen); Urine Protein, UAD TRACE (Negative); Urine Specific Gravity 1.018 (1.001-1.035); Urine Squamous Epithelial Cell FEW /hpf (<5); Urine Urobilinogen Normal (Negative); Urine WBC 92 /HPF (0-5)
--- NOTE | 2024-06-23 23:04 | DVHHPRES ---
History of Present Illness Resident Creating Document: SHAE OSUNA RESDIENT History of Present Illness This is a 64-year-old female with past medical history of diabetes, hypertension, seizure, depression, arthritis, asthma, dyslipidemia and CAD came to the hospital due to nephrostomy tube leakage. Patient has history of right- sided kidney stone and right side nephrostomy has been placed on January 2024, nephrostomy tube has been replaced 3 times since then, the recent time it was placed on April 2024. Per patient, since yesterday after taking shower, she had noticed nephrostomy tube leakage which has led her cloths being soaked with urine, with no urine drainage to the urinary bag. Otherwise she denies fever, dysuria, frequency, urgency, abdominal pain or any changes in bowel and bladder habits. She had been followed by Dr. Sunshine at office, but still no procedure has been performed, today's CT scan shows right-sided nephrostomy tube with proper position and 9 mm stone at proximal right ureter. PMHx: diabetes, hypertension, seizure, depression, arthritis, asthma, dyslipidemia and CAD PSHx: Status post nephrostomy tube, cholecystectomy Social history: Ex-smoker with 10 pack year history, denies alcohol or any other drug use Home medication: Gabapentin, sertraline, montelukast, glimepiride, metformin, losartan, amlodipine, levetiracetam, and insulin Allergic history: Codeine and penicillins Review of Systems Review of Systems General: patient denies fever, fatigue, weaknes, sweating, any recent changes in appetite and weight HEENT: No headaches, visiual changes, hearing loss, tinnitus, nasal congestion and discharge, and sore throat. Cardiovascular: Denies chest pain, palpitations, dyspnea on exertion, orthopnea, or claudication. Respiratory: No cough, and wheezing. Gastrointestinal: Denies nausea, vomiting, dysphagia, odynophagia, heartburn, abdominal pain, flatulence, bloating, diarrhea, constipation, change in stool, or blood in stool. Genitourinary: Reports paulo-nephrostomy tube leakage Endocrine: No heat or cold intolerance, polydipsia, polyuria, and polyphagia. Neurological: No dizziness, extremity weakness and numbness, tremors, gait disturbance, seizures, and memory impairment. Psychiatric: Denies depression, anxiety,or insomnia. Musculoskeletal: Denies neck pain, stiffness and swelling, back pain, muscle weakness, joint pain, stiffness, swelling, or limited range of motion. Skin: No rashes, itching, skin lesion, changes in hair, nail, skin texture and breast. Hematologic/Lymphatic: Denies easy bruising, bleeding tendencies, or lymph node enlargement. Allergies: Coded Allergies: Codeine (Verified Allergy, Unknown, 04/11/24) Penicillins (Verified Allergy, Unknown, 04/11/24) Exam Vital Signs Vital Signs Date Time Temp Pulse Resp B/P (MAP) Pulse Ox O2 Delivery O2 Flow Rate FiO2 06/23/24 17:21 98.1 71 17 137/53 (81) 96 Exam General Appearance: Alert, Oriented X3, Cooperative, No acute distress HEENT: Atraumatic, PERRLA, EOMI, Mucous membrane moist/pink Respiratory: Clear to auscultation, Normal air movement Cardiovascular: Regular rate, Normal S1, Normal S2, No murmurs, no chest wall tenderness Abdominal: Normal bowel sounds, Soft, No tenderness, No hepatospenomegaly, No masses Extremities: No clubbing, No cyanosis, No edema, Normal pulses, No tenderness/swelling Skin: Right lower back skin opening with nephrostomy tube in place, no erythema/swelling/induration/tenderness, scant amount of urine drainage noticed but no purulent drainage Neuro: Normal gait, Normal speech, Strength at 5/5 X4 ext, Normal tone, Sensation intact, Cranial nerves 3-12 NL, Reflexes 2+ Psych/Mental Status: Mental status NL, Mood NL Labs/Xrays Labs Test 06/23/24 20:21 06/23/24 20:02 06/23/24 18:00 Range/Units Lactic Acid Level 3.0 *H 0.4-2.0 mmol/L Urine Color Yellow Yellow Urine Clarity Turbid H Clear Urine pH 5.0 5.0-9.0 Urine Specific [place] 1.018 1.001-1.035 Urine Protein Trace H Negative Urine Ketones Negative Negative Urine Blood Negative Negative /uL Urine Nitrite Negative Negative Urine Bilirubin Negative Negative Urine Urobilinogen Normal Negative mg/dL Urine Leukocyte Esterase 3+ Negative /uL Urine RBC 4 0 - 4 /hpf Urine Microscopic WBC 92 H 0-5 /HPF Urine Squamous Epithelial Cells Few <5 /hpf Urine Amorphous Crystals Few None Seen /hpf Urine Bacteria Few H None Seen /hpf Urine Mucus Few None Seen Urine Glucose Normal Normal mg/dL White Blood Count 8.4 4.4-10.8 10^3/uL Red Blood Count 4.36 4.0-5.20 10^6/uL Hemoglobin 11.6 L 12.2-16.2 g/dL Hematocrit 35.7 L 36.0-46.0 % Mean Corpuscular Volume 82.1 80.0-100.0 fL Mean Corpuscular Hemoglobin 26.7 L 28.0-32.0 pg Mean Corpuscular Hemoglobin Concent 32.5 32.0-36.0 g/dL Red Cell Distribution Width 15.7 H 11.8-14.3 % Platelet Count 324 140-450 10^3/uL Mean Platelet Volume 7.0 6.9-10.8 fL Neutrophils (%) (Auto) 66.4 37.0-80.0 % Lymphocytes (%) (Auto) 25.6 10.0-50.0 % Monocytes (%) (Auto) 4.5 0.0-12.0 % Eosinophils (%) (Auto) 2.7 0.0-7.0 % Basophils (%) (Auto) 0.8 0.0-2.0 % Neutrophils # (Auto) 5.6 1.6-8.6 10 ^3/uL Lymphocytes # (Auto) 2.2 0.4-5.4 10 ^3/uL Monocytes # (Auto) 0.4 0-1.3 10 ^3/uL Eosinophils # (Auto) 0.2 0-0.8 10 ^3/uL Basophils # (Auto) 0.1 0-0.2 10 ^3/uL Nucleated Red Blood Cells 0.1 % Sodium Level 141 136-145 mmol/L Potassium Level 5.0 3.5-5.1 mmol/L Chloride Level 108 H 98-107 mmol/L Carbon Dioxide Level 22 20-31 mmol/L Anion Gap 11 5-15 Blood Urea Nitrogen 29 H 9-23 mg/dL Creatinine 1.84 H 0.550-1.02 mg/dL Glomerular Filtration Rate Calc 30 >90 mL/min BUN/Creatinine Ratio 15.8 10.0-20.0 Serum Glucose 140 H 74-106 mg/dL Calcium Level 10.4 8.7-10.4 mg/dL Total Bilirubin 0.4 0.2-1.0 mg/dL Aspartate Amino Transferase (AST) 24 13-40 U/L Alanine Aminotransferase (ALT) 33 7-40 U/L Alkaline Phosphatase 115 46-116 U/L Total Protein 6.4 5.7-8.2 g/dL Albumin 4.3 3.2-4.8 g/dL Assessment/Plan Assessment/Plan Complicated UTI Malfunctioned nephrostomy tube History of renal stone CT scan shows right-sided nephrostomy tube with proper positioning, with 9 mm stone at proximal right ureter UA shows UTI picture Check urine culture Consulted radiology Empiric antibiotic, ceftriaxone IV fluid CKD 3B Lactic acidosis Possible lactic acidosis due to metformin in context of CKD History of coronary artery disease History of possible left-sided stroke Patient has left lower limb weakness with power 3/5 with sensory deficits since six-month, but does not give history of stroke Started aspirin Diabetes mellitus Insulin mild SS Hypertension Continue amlodipine Depression Continue sertraline Seizure Continue levetiracetam Asthma Continue montelukast Osteoarthritis Continue gabapentin Dyslipidemia Continue atorvastatin Uterine fibroids, CT finding Small esophageal hiatal hernia, CT finding DIET: Diabetic diet DVT PROPHYLAXIS: Lovenox GI PROPHYLAXIS:: Protonix CODE STATUS: Goal of care discussed for more than 21 minutes, full code DISPOSITION: Med/surge Patient's status and paln discussed with the patient and the patient's [id number] at the bedside. Case discussed with Dr. Jose Carpenter discussed with: Other (RN) My Orders Orders - SHAE OSUNA Procedure Category Date Status Time Admit ADMIT 06/23/24 Transmitted 23:01 Stat Ekg For Chest VALENTE 06/23/24 Transmitted Pain 23:01 Notify Of Changes VALENTE 06/23/24 Transmitted From Base 23:01 SHAE OSUNA RESDILIN Jun 23, 2024 23:04
[2024-06-24] VITALS (14 sets, daily range): BP systolic 107–165; BP diastolic 46–80; PULSE 63–71; RESP 11–18; TEMP 97.7–98.2; O2SAT 92–98
[2024-06-24] MEDS: cefTRIAXone 1GM/50ML D5W 50 ML IV ONE (00:32)
[2024-06-24] MEDS: SODIUM CHLORIDE 0.9% 1,000 ML IV ONE (00:32)
[2024-06-24] MEDS ORDERED: ACETAMINOPHEN 325 MG TAB PO PRN (00:45)
[2024-06-24] MEDS: SODIUM CHLORIDE 0.9% 500 ML IV ONE (01:38)
[2024-06-24] MEDS: SERTRALINE HCL 50 MG TAB PO ONE (01:43)
[2024-06-24] MEDS: GABAPENTIN 300 MG CAP PO ONE (01:43)
[2024-06-24] MEDS: ENOXAPARIN SOD 30 MG/0.3 ML SYRINGE SC ONE (01:43)
[2024-06-24] MEDS: PANTOPRAZOLE 40 MG TAB PO ONE (01:44)
[2024-06-24] MEDS: levETIRAcetam 500 MG TAB PO ONE (01:44)
[2024-06-24] MEDS: MONTELUKAST SODIUM 10 MG TAB PO ONE (01:45)
[2024-06-24] MEDS: ATORVASTATIN 20 MG TAB PO ONE (01:47)
[2024-06-24] MEDS: amLODIPine BESYLATE 5 MG TAB PO ONE (01:48)
[2024-06-24] MEDS: ASPirin 81 mg TAB PO ONE (02:10)
[2024-06-24] MEDS: PANTOPRAZOLE 40 MG TAB PO SCH (06:08)
[2024-06-24 06:31] LABS: Basophils # (auto) 0 10 ^3/uL (0-0.2); Eosinophils # (auto) 0.2 10 ^3/uL (0-0.8); Lymphocytes # (auto) 2.2 10 ^3/uL (0.4-5.4); Monocytes # (auto) 0.4 10 ^3/uL (0-1.3); Neutrophils # (auto) 3.9 10 ^3/uL (1.6-8.6); Nucleated Red Blood Cells % 0.1 %; White Blood Cell 6.7 10^3/uL (4.4-10.8)
[2024-06-24 06:34] LABS: Basophils % (auto) 0.6 % (0.0-2.0); Eosinophils % (auto) 3.3 % (0.0-7.0); Hematocrit 28.9 % (36.0-46.0); Hemoglobin 9.5 g/dL (12.2-16.2); Lymphocytes % (auto) 32.3 % (10.0-50.0); Mean Corpuscular Hemoglobin 26.6 pg (28.0-32.0); Mean Corpuscular Hgb Conc. 32.7 g/dL (32.0-36.0); Mean Corpuscular Volume 81.4 fL (80.0-100.0); Monocytes % (auto) 6.2 % (0.0-12.0); Neutrophils % (auto) 57.6 % (37.0-80.0); Platelet Count (auto) 233 10^3/uL (140-450); Red Blood Cells 3.55 10^6/uL (4.0-5.20); Red Cell Distribution Width 15.2 % (11.8-14.3)
[2024-06-24 06:48] LABS: Alanine Aminotransferase 24 U/L (7-40); Albumin 3.6 g/dL (3.2-4.8); Alkaline Phosphatase 114 U/L (46-116); Anion Gap 9 (5-15); Aspartate Aminotransferase 15 U/L (13-40); BUN/Creatinine Ratio 17.9 (10.0-20.0); Calcium 9.3 mg/dL (8.7-10.4); Carbon Dioxide 22 mmol/L (20-31); Potassium 4.6 mmol/L (3.5-5.1); Sodium 141 mmol/L (136-145)
[2024-06-24 06:55] LABS: Bilirubin, Total 0.2 mg/dL (0.2-1.0); Blood Urea Nitrogen 32 mg/dL (9-23); Chloride 110 mmol/L (98-107); Glucose 143 mg/dL (74-106); Total Protein 5.6 g/dL (5.7-8.2)
[2024-06-24] MEDS: ASPirin 81 mg TAB PO SCH (09:35)
[2024-06-24] MEDS: cefTRIAXone 1GM/50ML D5W 50 ML IV SCH (09:35)
[2024-06-24] MEDS: levETIRAcetam 500 MG TAB PO SCH (09:36)
[2024-06-24] MEDS: GABAPENTIN 300 MG CAP PO SCH (09:36)
[2024-06-24] MEDS: SERTRALINE HCL 50 MG TAB PO SCH (09:37)
[2024-06-24] MEDS: ENOXAPARIN SOD 30 MG/0.3 ML SYRINGE SC SCH (09:38)
[2024-06-24] MEDS: amLODIPine BESYLATE 5 MG TAB PO SCH (10:00)
[2024-06-24 10:33] LABS: INR 1.03 (0.9-1.15); Partial Thromboplastin Time 27.6 SEC (24.5-34.5); Prothrombin Time 10.9 sec (9.3-11.8)
[2024-06-24] MEDS: IODIXANOL 320MG/ML 100ML BTL IV ONE (12:02)
[2024-06-24] MEDS: fentaNYL CITRATE 100 MCG/2 ML VL ONE (12:09)
[2024-06-24] MEDS: MIDAZOLAM HCL 2MG/2ML 2ml VIAL (1mg/ml) ONE (12:10)
[2024-06-24] MEDS: LIDOCAINE 2%HCL (LOCAL ANESTH.) INJ 20ML MDV ONE (12:10)
--- NOTE | 2024-06-24 13:38 | DVHPNRES ---
Progress Note Date Seen: Jun 24, 2024 Resident Creating Document: KEKE RAMÍREZ RESIDENT Has the PT tested + for MRSA If YES, has PT been informed?: No Medical Necessity Reason Pt with a Central, PICC or Fol: No Subjective Review of Systems A 64-year-old female with past medical history of diabetes, hypertension, seizure, depression, arthritis, asthma, dyslipidemia and CAD came to the hospital due to nephrostomy tube leakage. Patient has history of right-sided kidney stone and right side nephrostomy has been placed on January 2024, nephrostomy tube has been replaced 3 times since then, the recent time it was placed on April 2024. Per patient, since yesterday after taking shower, she had noticed nephrostomy tube leakage which has led her cloths being soaked with urine, with no urine drainage to the urinary bag. Otherwise she denies fever, dysuria, frequency, urgency, abdominal pain or any changes in bowel and bladder habits. She had been followed by Dr. Sunshine at office, but still no procedure has been performed, today's CT scan shows right-sided nephrostomy tube with proper position and 9 mm stone at proximal right ureter. PMHx: diabetes, hypertension, seizure, depression, arthritis, asthma, dyslipidemia and CAD PSHx: Status post nephrostomy tube, cholecystectomy Social history: Ex-smoker with 10 pack year history, denies alcohol or any other drug use Home medication: Gabapentin, sertraline, montelukast, glimepiride, metformin, losartan, amlodipine, levetiracetam, and insulin Allergic history: Codeine and penicillins Objective vital signs Vital Sign Date Time Temp Pulse Resp B/P (MAP) Pulse Ox O2 Delivery O2 Flow Rate FiO2 06/24/24 10:00 124/43 06/24/24 10:00 69 13 98 06/24/24 07:45 Room Air* 0 21 06/24/24 07:45 97.4 97.4 Total Intake and Output 06/23/24 06/23/24 06/24/24 15:00 23:00 07:00 Intake Total 1550 ml Balance 1550 ml medications Current Medications Medications Dose Ordered Sig/Hilda Route Start Time Stop Time Status Last Admin Dose Admin Ceftriaxone Sodium 50 ml @ 100 mls/hr DAILY@09 IV 06/24/24 09:00 06/24/24 09:35 100 MLS/HR Acetaminophen 650 mg Q4HP PRN PO 06/24/24 00:45 Sertraline HCl 100 mg DAILY PO 06/24/24 10:00 06/24/24 09:37 100 MG Atorvastatin Calcium 40 mg HS PO 06/24/24 22:00 Amlodipine Besylate 5 mg DAILY PO 06/24/24 10:00 Gabapentin 300 mg BID PO 06/24/24 10:00 06/24/24 09:36 300 MG Montelukast Sodium 10 mg HS PO 06/24/24 22:00 Levetiracetam 1,000 mg BID PO 06/24/24 10:00 06/24/24 09:36 1,000 MG Pantoprazole Sodium 40 mg DAILY@0600 PO 06/24/24 06:00 06/24/24 06:08 40 MG Enoxaparin Sodium 30 mg DAILY SC 06/24/24 10:00 Aspirin 81 mg DAILY PO 06/24/24 10:00 Examination General Appearance: Alert, Oriented X3, Cooperative, No acute distress HEENT: Atraumatic, PERRLA, EOMI, Mucous membrane moist/pink Respiratory: Clear to auscultation, Normal air movement Cardiovascular: Regular rate, Normal S1, Normal S2, No murmurs, no chest wall tenderness Abdominal: Normal bowel sounds, Soft, No tenderness, No hepatospenomegaly, No masses Extremities: No clubbing, No cyanosis, No edema, Normal pulses, No tenderness/swelling Skin: Right lower back skin opening with nephrostomy tube in place, no erythema/swelling/induration/tenderness, scant amount of urine drainage noticed but no purulent drainage Neuro: Normal gait, Normal speech, Strength at 5/5 X4 ext, Normal tone, Sensation intact, Cranial nerves 3-12 NL, Reflexes 2+ Psych/Mental Status: Mental status NL, Mood NL laboratory and microbiology Laboratory Tests 06/24/24 05:27 Test 06/24/24 05:27 Range/Units Serum Glucose 143 H 74-106 mg/dL Problem List/Assessment/Plan Problem List/Assessment/Plan Complicated UTI Malfunctioned nephrostomy tube s/p nephrostomy tube replacement History of renal stone CT scan shows right-sided nephrostomy tube with proper positioning, with 9 mm stone at proximal right ureter UA shows UTI picture Check urine culture Consulted radiology: procedure done without complications Empiric antibiotic, ceftriaxone Possible DC tomorrow after new kidney ultrasound, patient will need f/u with urology as outpatient to treat 9mm stone possible lithotripsy CKD 3B Lactic acidosis Possible lactic acidosis due to metformin in context of CKD History of coronary artery disease History of possible left-sided stroke Patient has left lower limb weakness with power 3/5 with sensory deficits since six-month, but does not give history of stroke Started aspirin Diabetes mellitus Insulin mild SS Hypertension Continue amlodipine Depression Continue sertraline Seizure Continue levetiracetam Asthma Continue montelukast Osteoarthritis Continue gabapentin Dyslipidemia Continue atorvastatin Uterine fibroids, CT finding Small esophageal hiatal hernia, CT finding DIET: Diabetic diet DVT PROPHYLAXIS: Lovenox GI PROPHYLAXIS:: Protonix CODE STATUS: Goal of care discussed for more than 21 minutes, full code DISPOSITION: Med/surge Patient's status and plan discussed with the patient and the patient's [id number] at the bedside. Case discussed with Dr. Garcia Plan discussed with: Patient, Other (rn) KEKE RAMÍREZ RESIDENT Jun 24, 2024 13:38
--- NOTE | 2024-06-24 14:32 | DVH ---
XY PERCUTANEOUS NEPHROSTOMY, HISTORY: Malpositioned nephrostomy tube was retracted and here for a reposition and exchange. PROCEDURE: Informed consent was obtained. The patient was placed on the fluoroscopic table in a prone position and IV sedation administered. The right flank was prepped with chlorhexidine which was allo wed to dry and draped in the usual sterile fashion. Time out was performed. and the soft tissues infi ltrated with 1% lidocaine local anesthetic. An antegrade nephrostogram was performed to confirm posit ion of the previous nephrostomy tube. The tube was cut and a stiff glidewire was inserted through the nephrostomy tube into the collecting system. The prior nephrostomy tube was removed, and a new 8.5 F r multipurpose drainage catheter was advanced into the renal pelvis over a wire. Completion antegrade nephrostogram demonstrates appropriate position of the new nephrostomy tube in the renal pelvis. The catheter was secured in place and connected to gravity drainage. A sterile dressing was applied. No immediate complication was identified. DAP 148 FLUOROSCOPY TIME: 1.2 minutes. CONTRAST USED: 10 mL Isovue 300. SEDATION: Dr. Olive Everett was personally responsible for the administration of moderate sedation during the procedure performed, including the use of an independent trained observer who had no other duties during the procedure. The drugs utilized were IV fentanyl and versed (see nursing log for details). The total time of supervision by the attending physician was approximately 30 minutes. FINDINGS: Nephrostomy tube within pigtail coiled in the right renal pelvis. A large proximal ureter s tone is seen. IMPRESSION: Reposition and exchange of a right sided nephrostomy tube, with placement of a new 8.5 Fr multipurpos e drainage catheter in the right sided renal pelvis. PLAN: Routine catheter care.
--- NOTE | 2024-06-24 20:48 | DVH ---
RENAL ULTRASOUND CLINICAL HISTORY: history of pyelonephritis TECHNIQUE: Multiple grayscale ultrasound images were obtained through the kidneys and urinary bladder . COMPARISON: None FINDINGS: Right kidney: Measures 7.5 cm. No hydronephrosis. Stent is seen in the right kidney. Left kidney: Measures 9.9 cm. Mild left hydronephrosis. Urinary bladder: Mildly distended urinary bladder IMPRESSION: 1. Mildly atrophic right kidney. Stent visualized in the right kidney. 2. Mild left hydronephrosis
[2024-06-24] MEDS: ATORVASTATIN 20 MG TAB PO SCH (22:08)
[2024-06-24] MEDS: MONTELUKAST SODIUM 10 MG TAB PO SCH (22:08)
[2024-06-25 00:47] VITALS: BP 115/38; PULSE 70; RESP 13; TEMP 97.9; O2SAT 96
[2024-06-25 05:00] VITALS: BP 112/37; PULSE 72; RESP 12; TEMP 98; O2SAT 96
[2024-06-25 06:17] LABS: Basophils # (auto) 0 10 ^3/uL (0-0.2); Basophils % (auto) 0.7 % (0.0-2.0); Eosinophils # (auto) 0.2 10 ^3/uL (0-0.8); Eosinophils % (auto) 3.2 % (0.0-7.0); Hematocrit 29.9 % (36.0-46.0); Hemoglobin 9.8 g/dL (12.2-16.2); Lymphocytes # (auto) 1.3 10 ^3/uL (0.4-5.4); Lymphocytes % (auto) 26.1 % (10.0-50.0); Mean Corpuscular Hemoglobin 26.6 pg (28.0-32.0); Mean Corpuscular Hgb Conc. 32.8 g/dL (32.0-36.0); Mean Corpuscular Volume 81.1 fL (80.0-100.0); Monocytes # (auto) 0.3 10 ^3/uL (0-1.3); Monocytes % (auto) 6.2 % (0.0-12.0); Neutrophils # (auto) 3.3 10 ^3/uL (1.6-8.6); Neutrophils % (auto) 63.8 % (37.0-80.0); Platelet Count (auto) 213 10^3/uL (140-450); Red Blood Cells 3.68 10^6/uL (4.0-5.20); Red Cell Distribution Width 15.3 % (11.8-14.3); White Blood Cell 5.1 10^3/uL (4.4-10.8)
[2024-06-25 07:25] LABS: Alanine Aminotransferase 27 U/L (7-40); Albumin 3.7 g/dL (3.2-4.8); Alkaline Phosphatase 92 U/L (46-116); Anion Gap 6 (5-15); Aspartate Aminotransferase 24 U/L (13-40); BUN/Creatinine Ratio 16.8 (10.0-20.0); Calcium 9.6 mg/dL (8.7-10.4); Carbon Dioxide 26 mmol/L (20-31); Potassium 5.1 mmol/L (3.5-5.1); Sodium 143 mmol/L (136-145)
[2024-06-25 07:26] LABS: Bilirubin, Total 0.3 mg/dL (0.2-1.0); Blood Urea Nitrogen 27 mg/dL (9-23); Chloride 111 mmol/L (98-107); Glucose 118 mg/dL (74-106); Total Protein 5.7 g/dL (5.7-8.2)
[2024-06-25 08:00] VITALS: PULSE 63; RESP 15; O2SAT 95
[2024-06-25 08:30] VITALS: BP 123/43; PULSE 63; RESP 15; TEMP 97.8; O2SAT 95
[2024-06-25] MEDS ORDERED: FOSF3POW PO (10:22)
[2024-06-25] MEDS ORDERED: NITR50CA52 PO (10:22)
[2024-06-25 12:30] VITALS: BP 134/71; PULSE 75; RESP 17; TEMP 98.2; O2SAT 96
[2024-06-25] MEDS: SODIUM ZIRCONIUM CYCL 10 GM PAK PO ONE (12:31)
--- NOTE | 2024-06-25 15:06 | DVHDSRES ---
Discharge Summary Date of Admission Resident Creating Document: KEKE RAMÍREZ RESIDENT Jun 23, 2024 at 23:01 Date of Discharge: Jun 25, 2024 Admitting Diagnosis Complicated UTI Malfunctioned R nephrostomy tube s/p nephrostomy tube replacement Labs/Diagnostic Data: Laboratory Results Test 06/25/24 05:17 06/24/24 10:44 06/24/24 09:48 06/24/24 02:40 White Blood Count 5.1 10^3/uL (4.4-10.8) Red Blood Count 3.68 10^6/uL (4.0-5.20) Hemoglobin 9.8 g/dL (12.2-16.2) Hematocrit 29.9 % (36.0-46.0) Mean Corpuscular Volume 81.1 fL (80.0-100.0) Mean Corpuscular Hemoglobin 26.6 pg (28.0-32.0) Mean Corpuscular Hemoglobin Concent 32.8 g/dL (32.0-36.0) Red Cell Distribution Width 15.3 % (11.8-14.3) Platelet Count 213 10^3/uL (140-450) Mean Platelet Volume 7.1 fL (6.9-10.8) Neutrophils (%) (Auto) 63.8 % (37.0-80.0) Lymphocytes (%) (Auto) 26.1 % (10.0-50.0) Monocytes (%) (Auto) 6.2 % (0.0-12.0) Eosinophils (%) (Auto) 3.2 % (0.0-7.0) Basophils (%) (Auto) 0.7 % (0.0-2.0) Neutrophils # (Auto) 3.3 10 ^3/uL (1.6-8.6) Lymphocytes # (Auto) 1.3 10 ^3/uL (0.4-5.4) Monocytes # (Auto) 0.3 10 ^3/uL (0-1.3) Eosinophils # (Auto) 0.2 10 ^3/uL (0-0.8) Basophils # (Auto) 0 10 ^3/uL (0-0.2) Nucleated Red Blood Cells 0.0 % Sodium Level 143 mmol/L (136-145) Potassium Level 5.1 mmol/L (3.5-5.1) Chloride Level 111 mmol/L (98-107) Carbon Dioxide Level 26 mmol/L (20-31) Anion Gap 6 (5-15) Blood Urea Nitrogen 27 mg/dL (9-23) Creatinine 1.61 mg/dL (0.550-1.02) Glomerular Filtration Rate Calc 36 mL/min (>90) BUN/Creatinine Ratio 16.8 (10.0-20.0) Serum Glucose 118 mg/dL (74-106) Calcium Level 9.6 mg/dL (8.7-10.4) Total Bilirubin 0.3 mg/dL (0.2-1.0) Aspartate Amino Transferase (AST) 24 U/L (13-40) Alanine Aminotransferase (ALT) 27 U/L (7-40) Alkaline Phosphatase 92 U/L (46-116) Total Protein 5.7 g/dL (5.7-8.2) Albumin 3.7 g/dL (3.2-4.8) POC Glucose 136 mg/dl (70-106) Prothrombin Time 10.9 sec (9.3-11.8) Prothrombin Time INR 1.03 (0.9-1.15) Activated Partial Thromboplast Time 27.6 SEC (24.5-34.5) Lactic Acid Level 1.2 mmol/L (0.4-2.0) Test 06/23/24 20:02 Urine Color Yellow (Yellow) Urine Clarity Turbid (Clear) Urine pH 5.0 (5.0-9.0) Urine Specific [place] 1.018 (1.001-1.035) Urine Protein Trace (Negative) Urine Ketones Negative (Negative) Urine Blood Negative /uL (Negative) Urine Nitrite Negative (Negative) Urine Bilirubin Negative (Negative) Urine Urobilinogen Normal mg/dL (Negative) Urine Leukocyte Esterase 3+ /uL (Negative) Urine RBC 4 /hpf (0 - 4) Urine Microscopic WBC 92 /HPF (0-5) Urine Squamous Epithelial Cells Few /hpf (<5) Urine Amorphous Crystals Few /hpf (None Seen) Urine Bacteria Few /hpf (None Seen) Urine Mucus Few (None Seen) Urine Glucose Normal mg/dL (Normal) Other Laboratory Tests 06/25/24 05:17 Brief Hx & Hospital Course: A 64-year-old female with a past medical history of diabetes mellitus, hypertension, seizure disorder, depression, asthma, dyslipidemia, coronary artery disease (CAD), and a history of nephrolithiasis with nephrostomy tube placement presented with nephrostomy tube leakage. The tube, initially placed in January 2024, was replaced multiple times, most recently in April 2024. She reported persistent leakage over the past day with no significant abdominal pain, fever, or dysuria. Imaging confirmed a 9 mm stone in the proximal right ureter, and the nephrostomy tube was appropriately changed. The patient was managed with empiric antibiotics (ceftriaxone), and her clinical status remained stable throughout hospitalization. No complications arose from the radiological procedure. During her stay, her chronic conditions, including CKD 3B, diabetes mellitus, and hypertension, were addressed. Upon discharge, she was clinically stable and advised to follow up with urology for possible lithotripsy to address the proximal stone. Discharge medications included insulin, amlodipine, sertraline, levetiracetam, montelukast, gabapentin, and atorvastatin. Oral AB are prescribed: nitrofurantoin and fosfomycin, urine culture will be f/u in [facility] clinic. General Appearance: Alert, Oriented X3, Cooperative, No acute distress HEENT: Atraumatic, PERRLA, EOMI, Mucous membrane moist/pink Respiratory: Clear to auscultation, Normal air movement Cardiovascular: Regular rate, Normal S1, Normal S2, No murmurs, no chest wall tenderness Abdominal: Normal bowel sounds, Soft, No tenderness, No hepatospenomegaly, No masses Extremities: No clubbing, No cyanosis, No edema, Normal pulses, No tenderness/swelling Skin: Right lower back skin opening with nephrostomy tube in place, no erythema/swelling/induration/tenderness, scant amount of urine drainage noticed but no purulent drainage Neuro: Normal gait, Normal speech, Strength at 5/5 X4 ext, Normal tone, Sensation intact, Cranial nerves 3-12 NL, Reflexes 2+ Psych/Mental Status: Mental status NL, Mood NL Case discussed with Dr Garcia Time spent on care 23 min Consults/Reason for consult IR due to nephrostomy Operations or Procedures XY PERCUTANEOUS NEPHROSTOMY, HISTORY: Malpositioned nephrostomy tube was retracted and here for a reposition and exchange. PROCEDURE: Informed consent was obtained. The patient was placed on the fluoroscopic table in a prone position and IV sedation administered. The right flank was prepped with chlorhexidine which was allowed to dry and draped in the usual sterile fashion. Time out was performed. and the soft tissues infiltrated with 1% lidocaine local anesthetic. An antegrade nephrostogram was performed to confirm position of the previous nephrostomy tube. The tube was cut and a stiff glidewire was inserted through the nephrostomy tube into the collecting system. The prior nephrostomy tube was removed, and a new 8.5 Fr multipurpose drainage catheter was advanced into the renal pelvis over a wire. Completion antegrade nephrostogram demonstrates appropriate position of the new nephrostomy tube in the renal pelvis. The catheter was secured in place and connected to gravity drainage. A sterile dressing was applied. No immediate complication was identified. DAP 148 FLUOROSCOPY TIME: 1.2 minutes. CONTRAST USED: 10 mL Isovue 300. SEDATION: Dr. Olive Everett was personally responsible for the administration of moderate sedation during the procedure performed, including the use of an independent trained observer who had no other duties during the procedure. The drugs utilized were IV fentanyl and versed (see nursing log for details). The total time of supervision by the attending physician was approximately 30 minutes. FINDINGS: Nephrostomy tube within pigtail coiled in the right renal pelvis. A large proximal ureter stone is seen. IMPRESSION: Reposition and exchange of a right sided nephrostomy tube, with placement of a new 8.5 Fr multipurpose drainage catheter in the right sided renal pelvis. PLAN: Routine catheter care. EXAM: CT Abdomen and Pelvis Without Intravenous Contrast CLINICAL INDICATION: R nephrostomy tube leak TECHNIQUE: Axial computed tomography images of the abdomen and pelvis without intravenous contrast. This CT exam was performed using one or more of the following dose reduction techniques: automated exposure control, adjustment of the mA and/or kV according to patient size, and/or use of iterative reconstruction technique. CONTRAST: COMPARISON: CT CT AB PEL WO CON-NO ORAL OR IV on DOS: 05/10/24, CT CT AB PEL WO CON-NO ORAL OR IV on DOS: 04/11/24 FINDINGS: LUNG BASES: Unremarkable. No mass. No consolidation. MEDIASTINUM: Small esophageal hiatal hernia. ABDOMEN: LIVER: Mild hepatomegaly. GALLBLADDER AND BILE DUCTS: Unremarkable. No calcified stones. No ductal dilation. PANCREAS: Unremarkable. No ductal dilation. SPLEEN: Unremarkable. No splenomegaly. ADRENALS: Unremarkable. No mass. KIDNEYS AND URETERS: Right-sided percutaneous nephrostomy tube appears to be in proper position. No hydronephrosis 9 mm calculus of the proximal right ureter. STOMACH AND BOWEL: Fecal retention in the colon consistent with constipation. No obstruction. No mucosal thickening. PELVIS: APPENDIX: No findings to suggest acute appendicitis. BLADDER: Unremarkable. No stones. REPRODUCTIVE: Probable calcified uterine fibroid. ABDOMEN and PELVIS: INTRAPERITONEAL SPACE: Unremarkable. No free air. No significant fluid collection. BONES/JOINTS: No acute fracture. No dislocation. SOFT TISSUES: Unremarkable. VASCULATURE: Unremarkable. No abdominal aortic aneurysm. LYMPH NODES: Unremarkable. No enlarged lymph nodes. OTHER FINDINGS: . . . . IMPRESSION: 1. Right-sided percutaneous nephrostomy tube appears to be in proper position. No hydronephrosis 9 mm calculus of the proximal right ureter. 2. Small esophageal hiatal hernia. 3. Probable calcified uterine fibroid. 4. Fecal retention in the colon consistent with constipation. Condition at Discharge: Stable Final Diagnosis/Problems List Complicated UTI Malfunctioned R nephrostomy tube s/p nephrostomy tube replacement History of renal stone Mild left hydronephrosis CKD 3B Lactic acidosis Possible lactic acidosis due to metformin in context of CKD History of coronary artery disease History of possible left-sided stroke Diabetes mellitus Hypertension Depression Ho Seizure Asthma Osteoarthritis Dyslipidemia Uterine fibroids, CT finding Small esophageal hiatal hernia, CT finding Discharge Disposition: Home Discharge Instruct/Medications Diet: Regular Activity: Light activity Follow Up/Referral: f/u with nephrology and pcp Medications: see prescription Discharge Statement: "Patient was advised to return to the ER or call 911 if any headaches, dizziness, shortness of breath, chest pain, abdominal pain, bleeding, fevers, or worsening of medical condition. Patient was counseled about treatment plan, medications, possible side effects, patientverbalized understanding. All questions were answered to the best of my ability. This discharge took greater then 30 minutes in planning, reviewing documentation, counseling the patient, and discussing with other team members." ASSESSMENT ASSESSMENT Assessment S/P KEKE Serrato RESIDENT Jun 25, 2024 15:06
== END 2024-06-25 14:40 | disposition home or self-care (01) | DRG 699 ==
LOC: ER 17:09 → OVERFLOW 23:01 → CENTRAL 06-24 16:34
PROVIDERS: ADMIT Student in an Organized Health Care Education/Training Program; ATTEND Emergency Medicine
PROC: 0T25X0Z Change Drainage Device in Kidney, External Approach (ICD-10-PCS; principal; 2024-06-24)
PROC: BT111ZZ Fluoroscopy of Right Kidney using Low Osmolar Contrast (ICD-10-PCS; 2024-06-24)
DX: N99.522 Malfunction of incontinent external stoma of urinary tract (principal); E87.20 Acidosis, unspecified; N13.6 Pyonephrosis; Y83.8 Other surgical procedures as the cause of abnormal reaction of the patient, or of later complication, without mention of misadventure at the time of the procedure; Y92.89 Other specified places as the place of occurrence of the external cause; D25.9 Leiomyoma of uterus, unspecified; R56.9 Unspecified convulsions; F32.A Depression, unspecified; K59.00 Constipation, unspecified; I12.9 Hypertensive chronic kidney disease with stage 1 through stage 4 chronic kidney disease, or unspecified chronic kidney disease; E11.22 Type 2 diabetes mellitus with diabetic chronic kidney disease; N18.32 Chronic kidney disease, stage 3b; I25.10 Atherosclerotic heart disease of native coronary artery without angina pectoris; E78.5 Hyperlipidemia, unspecified; J45.909 Unspecified asthma, uncomplicated; K44.9 Diaphragmatic hernia without obstruction or gangrene; Z90.49 Acquired absence of other specified parts of digestive tract; Z79.4 Long term (current) use of insulin; Z79.899 Other long term (current) drug therapy; Z87.442 Personal history of urinary calculi; T83.032A Leakage of nephrostomy catheter, initial encounter
CPT/HCPCS: 36415; 50432; 74176; 74425; 76775; 80053; 81001; 82962; 83605; 85025; 85610; 85730; 87086; 99152; G0378; J2250; Q9967

== ENCOUNTER 2024-09-18 15:54 | Inpatient (IN) | payer OTHER, MEDICAID ==
[~2024-09-18] VITALS: Ht 154.9 cm; Wt 86.0 kg
[~2024-09-18 15:54] MED LIST changes: +FOSF3POW PO; +NITR50CA52 PO
--- NOTE | 2024-09-18 17:25 | ED.PDOC ---
General HPI Comments 64y F who presents to the ED for chief complaint of nephrostomy tube care. - pt states she has nephrostomy tube placed on L kidney in Jan 2024 due to complication of kidney stones - pt states she had nephrostomy tube and bag kits delivered to her home and states pt sister in law is caregiver and replaces her tube every 1 week - pt states since June 2024, the tube and kit delivered were too large and pt caregiver was unable to replace the old kit and pt was cleaning and removing the old kit - pt states over the past 4-5 days, she has noticed leaking from nephrostomy tube site and pt home health nurse told pt to come to the ED and get tube replaced and checked for possible infection - pt now in the ED, otherwise denies any associated pain by nephrostomy tube site and otherwise denies fever, cough, chills or any associated symptoms - pt has noted leaking from nephrostomy tube site PMH: HTN, DM, HLD, arthritis, seizes PSH: gallbladder, eye cyst allergies: codeine, PCN medications: unknown social history: denies ETOH use, denies tobacco use, denies drug use HPI: Poor Historian. REVIEW OF SYSTEMS: CONSTITUTIONAL: Denies acute: fever, diaphoresis, chills, generalized weakness. HEAD: Denies acute: headache, photophobia Eyes: Denies acute: Double vision, vision loss, eye pain, eye discharge. EARS: Denies acute: tinnitus, hearing loss, ear discharge, ear pain, THROAT: Denies acute: sore throat, swelling, difficulty swallowing , pain with swallowing, change in voice. NECK: Denies acute: neck pain, neck swelling, stiff neck. HEART: Denies acute : chest pain, palpitations, LUNGS: Denies acute: SOB, wheezing, cough, hemoptysis ABDOMEN: Denies acute: abdominal pain, Nausea, Vomiting, diarrhea, melena , hematemesis, hematochezia SKIN: Denies acute: rash, redness, lesions, itchiness. EXTREMITIES: Denies acute: calf pain, numbness, tingling, weakness, denies pain in extremity. Denies acute: Low back pain. Neuro: Denies acute: focal neurological deficit, motor or sensory focal neurological deficit, tremors, seizure like activity, confusion, dizziness, change in mental status, loss of bowel or bladder function, cauda equina like symptoms. : Denies acute: dysuria, hematuria, flank pain, increase in urinary frequency. PSYCH: Denies acute: hallucination, suicidal ideation, homicidal ideation. FEMALE: Denies acute: abnormal vaginal bleeding, foul odor, unusual discharge. PHYSICAL EXAM: General: -----no---acute distress, awake and alert. Head: normocephalic, atraumatic. Neck: supple, trachea is midline, no swelling. Throat: Normal phonation. Eyes:, no erythema, no purulent discharge, no proptosis, no icterus. Heart: regular rate, regular rhythm, no significant murmur appreciated. Lungs: no apparent respiratory distress, Able to speak in full sentences. No wheezing, no rhonchi, no crackles. No stridors Clear to auscultation bilaterally. Abdomen: non tender to palpation, non distended, soft, no guarding, no rebound, + bowel sounds. Neuro: Awake, Alert, oriented to name, self, situation, follows commands GCS=15. Speech is normal. Skin: no petechia, no purpura, no cyanosis, non-pale, not jaundice. Lower extremities: --no - Pitting edema no deformity, no focal swelling, no calf TTP. Makes eye contact. moves all four extremities. Face: no apparent facial droop. No CVA tenderness to percussion bilaterally. Evaluation of the area of complaint right nephrostomy tube is noted. Normal urine color in the bag. No apparent erythema or pain in the area of the nephrostomy. ED COURSE: Time Seen by MD: 17:24 Reviewed notes: Nurses Notes, Medications, Allergies Allergies: Coded Allergies: Codeine (Verified Allergy, Unknown, 04/11/24) Penicillins (Verified Allergy, Unknown, 04/11/24) Home Meds Active Scripts Fosfomycin Tromethamine (Fosfomycin Tromethamine) 3 Gm Pow, 3 GM PO Q72HR for 9 Days, #3 POW Prov:KEKE RAMÍREZ RESIDENT 06/25/24 Nitrofurantoin (MACRODANTIN CAPSULE) 50 Mg Cp, 1 CAP PO DAILY for 7 Days, #30 CAP 11 Refills Prov:KAROLYN EarleKEKE 06/25/24 Ciprofloxacin Hcl (Cipro) 500 Mg Tab, 1 TAB PO BID, #20 TAB Prov:RAHUL NEWBY MD 05/14/24 Sulfamethoxazole W/Trimethopri (Bactrim Ds Tablet) 1 Tab Tb, 1 TAB PO BID for 10 Days, #20 TAB Prov:GREG MOODY MD 05/10/24 Levofloxacin Hemihydrate (LEVOFLOXACIN) 500 Mg Tab, 1 TAB PO DAILY for 5 Days, #5 TAB Prov:JAYCEE LUCIANO MD 04/15/24 Mirtazapine (Remeron) 30 Mg Tb, 15 MG PO HS for 30 Days, #15 TAB Prov:JAYCEE LUCIANO MD 04/15/24 Hydralazine Hcl (Hydralazine Hcl) 10 Mg Tab, 20 MG PO Q8HR for 30 Days, #180 TAB Prov:JAYCEE LUCIANO MD 04/15/24 Amlodipine Besylate (NORVASC TABLET) 5 Mg Tb, 10 MG PO DAILY for 30 Days, #60 TAB Prov:JAYCEE LUCIANO MD 04/15/24 Reported Medications Insulin Glargine (Basaglar Kwikpen) 100 Unit/Ml Inj, 20 UNIT SC HS 04/11/24 Glimepiride (Glimepiride) 4 Mg Tab, 1 TAB PO BID 04/11/24 Metformin Hydrochloride (Metformin Hcl) 1,000 Mg Tab, 1 TAB PO BID 04/11/24 Losartan Potassium (Losartan Potassium) 100 Mg Tab, 1 TAB PO DAILY 04/11/24 Atorvastatin Calcium (ATORVASTATIN CALCIUM) 40 Mg Tab, 1 TAB PO HS 04/11/24 Montelukast Sodium (MONTELUKAST SODIUM) 10 Mg Tab, 1 TAB PO DAILY 04/11/24 Pantoprazole Sodium Sesquihydr (Pantoprazole Sodium) 40 Mg Tab, 1 TAB PO QAM 04/11/24 Sucralfate (Sucralfate) 1 Gm Tab, 1 TAB PO TID 04/11/24 Sertraline Hcl (Sertraline Hcl) 100 Mg Tab, 1 TAB PO BID 04/11/24 Information Source: Patient Mode of Arrival: Wheelchair Brought in by: family member Past Medical History PAST MEDICAL HISTORY: Arthritis, Depression, DM, HTN, Kidney Stones, Seizures Surgical History: Cholecystectomy CONGRESSIONAL ASSISTANT History: Denies all CONGRESSIONAL ASSISTANT Hx Family History Family History: Reviewed,noncontributory to illness Social History Smoker: Non-Smoker Alcohol: Denies ETOH Use Drugs: Denies Drug Use Lives In: Home Was a procedure done? Was a procedure done?: No Differential Diagnosis Kidney stone (Female): N/A Urinary Problem (Female): Post-op complication, Pyelonephritis, Urinary retention, UTI, Other (Sepsis, abscess) X-Ray, Labs, Meds, VS Vital Signs Date Time Temp Pulse Resp B/P (MAP) Pulse Ox O2 Delivery O2 Flow Rate FiO2 09/18/24 16:15 98.6 79 18 158/60 (92) 98 98.6 Lab Test 09/18/24 19:51 09/18/24 17:24 09/18/24 17:03 Range/Units Lactic Acid Level 1.4 2.7 *H 0.4-2.0 mmol/L White Blood Count 9.7 4.4-10.8 10^3/uL Red Blood Count 4.36 4.0-5.20 10^6/uL Hemoglobin 11.4 L 12.2-16.2 g/dL Hematocrit 34.8 L 36.0-46.0 % Mean Corpuscular Volume 79.8 L 80.0-100.0 fL Mean Corpuscular Hemoglobin 26.1 L 28.0-32.0 pg Mean Corpuscular Hemoglobin Concent 32.7 32.0-36.0 g/dL Red Cell Distribution Width 15.6 H 11.8-14.3 % Platelet Count 340 140-450 10^3/uL Mean Platelet Volume 7.4 6.9-10.8 fL Neutrophils (%) (Auto) 72.5 37.0-80.0 % Lymphocytes (%) (Auto) 19.6 10.0-50.0 % Monocytes (%) (Auto) 5.1 0.0-12.0 % Eosinophils (%) (Auto) 2.2 0.0-7.0 % Basophils (%) (Auto) 0.6 0.0-2.0 % Neutrophils # (Auto) 7.1 1.6-8.6 10 ^3/uL Lymphocytes # (Auto) 1.9 0.4-5.4 10 ^3/uL Monocytes # (Auto) 0.5 0-1.3 10 ^3/uL Eosinophils # (Auto) 0.2 0-0.8 10 ^3/uL Basophils # (Auto) 0.1 0-0.2 10 ^3/uL Nucleated Red Blood Cells 0.0 % Sodium Level 137 136-145 mmol/L Potassium Level 3.7 3.5-5.1 mmol/L Chloride Level 101 98-107 mmol/L Carbon Dioxide Level 25 20-31 mmol/L Anion Gap 11 5-15 Blood Urea Nitrogen 31 H 9-23 mg/dL Creatinine 1.85 H 0.550-1.02 mg/dL Glomerular Filtration Rate Calc 30 >90 mL/min BUN/Creatinine Ratio 16.8 10.0-20.0 Serum Glucose 249 H 74-106 mg/dL Calcium Level 9.7 8.7-10.4 mg/dL Total Bilirubin 0.4 0.2-1.0 mg/dL Aspartate Amino Transferase (AST) 14 13-40 U/L Alanine Aminotransferase (ALT) 21 7-40 U/L Alkaline Phosphatase 143 H 46-116 U/L Total Protein 7.0 5.7-8.2 g/dL Albumin 4.5 3.2-4.8 g/dL Urine Color Colorless Yellow Urine Clarity Turbid H Clear Urine pH 6.5 5.0-9.0 Urine Specific [place] 1.008 1.001-1.035 Urine Protein Trace H Negative Urine Ketones Negative Negative Urine Blood 1+ H Negative /uL Urine Nitrite Negative Negative Urine Bilirubin Negative Negative Urine Urobilinogen Normal Negative mg/dL Urine Leukocyte Esterase 3+ Negative /uL Urine RBC 1 0 - 4 /hpf Urine Microscopic WBC 32 H 0-5 /HPF Urine Squamous Epithelial Cells Few <5 /hpf Urine Amorphous Crystals Few None Seen /hpf Urine Bacteria Few H None Seen /hpf Urine Glucose Normal Normal mg/dL [facility] [id number] [place] [id number] Ph: [phone] DIAGNOSTIC IMAGING Diagnostic Imaging Report : [id number] Signed PATIENT: LOUIS DE GUZMAN ACCT: [id number] UNIT: [id number] : 1960 LOC: ER ROOM / BED: / AGE / SEX: 64 / F ADM STATUS: REG ER SERVICE 1702 ORDERING PHYSICIAN: ANITHA HIDALGO DO PROCEDURE(s): ABPL - CT AB PEL WO CON-NO ORAL OR IV REASON: R nephrostomy tube problem. ORDER NUMBER(s): [id number], ACCESSION NUMBER(s): [id number] Procedure: CT CT AB PEL WO CON-NO ORAL OR IV 09/18/2024 05:04 PM Indication: R nephrostomy tube problem. Comparison Study: CT CT AB PEL WO CON-NO ORAL OR IV on DOS: 06/23/24, CT CT AB PEL WO CON-NO ORAL OR IV on DOS: 05/10/24, CT CT AB PEL WO CON-NO ORAL OR IV on DOS: 04/11/24 Technique: Axial images were obtained and reformatted in coronal and sagittal planes. All CT scans at this medical facility are performed using dose modulation techniques as appropriate to a performed exam including the following: Automated exposure control was utilized; adjustment of the MA and/or KV according to patient size; and use of iterative reconstruction technique. CT Dose: CTDI volume is 15 mGy. Dose-length product is 775 mGy*cm FINDINGS: Lower Chest: Unremarkable. Hepatobiliary: Unremarkable. Spleen: Unremarkable. Pancreas: Unremarkable. Adrenal Glands: Unremarkable. tract: Mild right renal atrophy, mild right hydronephrosis and a 1.3 cm stone in the renal pelvis. A nephrostomy tube is noted which is displaced into the lower pole projecting over the calyx and cortex. No fluid is seen along the nephrostomy tube. Mild left renal hydronephrosis noted without urinary calculi. The urinary bladder is unremarkable. GI tract: A small sliding hiatal hernia noted. No evidence of small bowel obstruction. The large bowel is unremarkable. The appendix is not visualized. No inflammatory change is noted in the right lower quadrant. Lymphatics: No mesenteric, retroperitoneal or periportal lymphadenopathy. Vasculature: The abdominal aorta is normal in caliber. Pelvic Organs: Myomatous uterus. Bones/soft tissues: No acute abnormality. Multilevel degenerative disc disease and posterior facet arthropathy of the lumbar spine. Mild degenerative grade 1 anterolisthesis of L4 on L5 noted. Other: None. IMPRESSION: 1. Interval inferior displacement of the nephrostomy tube which is now seen in the lower pole calyx and cortex. 2. Mild left renal hydronephrosis without urinary calculi. ATED BY: SUSAN WHITEHEAD MD DICTATED DATE/TIME: 09/18/241809 SIGNED BY: SUSAN WHITEHEAD MD SIGNED DATE/TIME: 09/18/241809 CC: Time of 1ST Reevaluation: 21:37 Reevaluation 1ST: Improved Patient Education/Counseling: Diagnosis, Treatment Family Education/Counseling: Diagnosis, Treatment Comments Patient presented with the above HPI.--nephrostomy tube problems----workup was initiated. patient was found with the above mentioned diagnosis. the following medications were ordered: please refer to order lists of meds and tests obtained by myself Dr. Hidalgo. Patient ED course and VS have been stabilized. Patient has been reassessed in the ED and remained in a stable condition. Pertinent incidental findings were discussed with the patient and/or family. Patient/family voices understanding and is agreeable with plan. Patient has been observed in the ED adequate length of time to insure improvement/stability. Escalation of care considered: Consideration of escalation to observation or admission Patient was ADMITTED to the medicine team for further evaluation and treatment of their presentation. Patient will benefit from a urology consult and re-evaluation of the nephrostomy tubes that according to patient needs to be removed many months ago. All the reports of any imaging studies that were ordered by myself were reviewed by myself. Departure 1 Departure Time of Disposition: 19:27 Impression: Primary Impression: Displacement of nephrostomy tube Additional Impression: UTI (urinary tract infection) Disposition: ADMITTED INPATIENT Admit to: Tele Condition: Guarded Discharged With: Self Critical Care Note Critical Care Time?: No I personally scribed for ANITHA HIDALGO DO ([email or web address]) on 09/18/24 at 17:25. Electronically submitted by Uriah Bustamante (SOPHIE). I personally scribed for ANITHA HIDALGO DO ([email or web address]) on 09/18/24 at 19:44. Electronically submitted by Uriah Bustamante (SOPHIE). ANITHA HIDALGO DO September 18, 2024 17:25
[2024-09-18 17:37] LABS: Basophils # (auto) 0.1 10 ^3/uL (0-0.2); Basophils % (auto) 0.6 % (0.0-2.0); Eosinophils # (auto) 0.2 10 ^3/uL (0-0.8); Eosinophils % (auto) 2.2 % (0.0-7.0); Hematocrit 34.8 % (36.0-46.0); Hemoglobin 11.4 g/dL (12.2-16.2); Lymphocytes # (auto) 1.9 10 ^3/uL (0.4-5.4); Lymphocytes % (auto) 19.6 % (10.0-50.0); Mean Corpuscular Hemoglobin 26.1 pg (28.0-32.0); Mean Corpuscular Hgb Conc. 32.7 g/dL (32.0-36.0); Mean Corpuscular Volume 79.8 fL (80.0-100.0); Monocytes # (auto) 0.5 10 ^3/uL (0-1.3); Monocytes % (auto) 5.1 % (0.0-12.0); Neutrophils # (auto) 7.1 10 ^3/uL (1.6-8.6); Neutrophils % (auto) 72.5 % (37.0-80.0); Platelet Count (auto) 340 10^3/uL (140-450); Red Blood Cells 4.36 10^6/uL (4.0-5.20); Red Cell Distribution Width 15.6 % (11.8-14.3); White Blood Cell 9.7 10^3/uL (4.4-10.8)
[2024-09-18 17:52] LABS: Alanine Aminotransferase 21 U/L (7-40); Albumin 4.5 g/dL (3.2-4.8); Anion Gap 11 (5-15); Aspartate Aminotransferase 14 U/L (13-40); BUN/Creatinine Ratio 16.8 (10.0-20.0); Calcium 9.7 mg/dL (8.7-10.4); Carbon Dioxide 25 mmol/L (20-31); Chloride 101 mmol/L (98-107); Potassium 3.7 mmol/L (3.5-5.1); Sodium 137 mmol/L (136-145)
[2024-09-18 17:53] LABS: Bilirubin, Total 0.4 mg/dL (0.2-1.0)
[2024-09-18 17:59] LABS: Alkaline Phosphatase 143 U/L (46-116); Blood Urea Nitrogen 31 mg/dL (9-23); Glucose 249 mg/dL (74-106)
[2024-09-18 18:06] LABS: Urine Amorphous Crystal FEW /hpf (None Seen); Urine Bacteria FEW /hpf (None Seen); Urine Blood 1+ /uL (Negative); Urine Clarity Turbid (Clear); Urine Color Colorless (Yellow); Urine Protein, UAD TRACE (Negative); Urine Specific Gravity 1.008 (1.001-1.035); Urine Squamous Epithelial Cell FEW /hpf (<5); Urine Urobilinogen Normal (Negative); Urine WBC 32 /HPF (0-5); Urine pH 6.5 (5.0-9.0)
--- NOTE | 2024-09-18 18:13 | DVH ---
Procedure: CT CT AB PEL WO CON-NO ORAL OR IV 09/18/2024 05:04 PM Indication: R nephrostomy tube problem. Comparison Study: CT CT AB PEL WO CON-NO ORAL OR IV on DOS: 06/23/24, CT CT AB PEL WO CON-NO ORAL OR I V on DOS: 05/10/24, CT CT AB PEL WO CON-NO ORAL OR IV on DOS: 04/11/24 Technique: Axial images were obtained and reformatted in coronal and sagittal planes. All CT scans at this medical facility are performed using dose modulation techniques as appropriate to a performed e xam including the following: Automated exposure control was utilized; adjustment of the MA and/or KV according to patient size; and use of iterative reconstruction technique. CT Dose: CTDI volume is 15 mGy. Dose-length product is 775 mGy*cm FINDINGS: Lower Chest: Unremarkable. Hepatobiliary: Unremarkable. Spleen: Unremarkable. Pancreas: Unremarkable. Adrenal Glands: Unremarkable. tract: Mild right renal atrophy, mild right hydronephrosis and a 1.3 cm stone in the renal pelvis. A nephrostomy tube is noted which is displaced into the lower pole projecting over the calyx and cor curt. No fluid is seen along the nephrostomy tube. Mild left renal hydronephrosis noted without urina ry calculi. The urinary bladder is unremarkable. GI tract: A small sliding hiatal hernia noted. No evidence of small bowel obstruction. The large miguelina l is unremarkable. The appendix is not visualized. No inflammatory change is noted in the right lower quadrant. Lymphatics: No mesenteric, retroperitoneal or periportal lymphadenopathy. Vasculature: The abdominal aorta is normal in caliber. Pelvic Organs: Myomatous uterus. Bones/soft tissues: No acute abnormality. Multilevel degenerative disc disease and posterior facet a rthropathy of the lumbar spine. Mild degenerative grade 1 anterolisthesis of L4 on L5 noted. Other: None. IMPRESSION: 1. Interval inferior displacement of the nephrostomy tube which is now seen in the lower pole calyx a nd cortex. 2. Mild left renal hydronephrosis without urinary calculi.
[2024-09-18 18:30] LABS: Lactic Acid w/Reflex 2.7 mmol/L (0.4-2.0)
[2024-09-18] MEDS ORDERED: ACETAMINOPHEN 325 MG TAB PO PRN (23:00)
[2024-09-18] MEDS ORDERED: ONDANSETRON HCL 4 MG/2 ML VIAL IV PRN (23:00)
[2024-09-18] MEDS ORDERED: DEXTROSE (50%) 50ML SYRG IV PRN (23:00)
[2024-09-18] MEDS ORDERED: DOCUSATE SOD 100 MG CAP PO PRN (23:00)
--- NOTE | 2024-09-18 23:14 | DVHHPRES ---
History of Present Illness Resident Creating Document: ALE LYLES RESIDENT History of Present Illness Patient is a 64-year-old female with past medical history of diabetes, hypertension, seizure, depression, osteoarthritis, dyslipidemia, [place], nephrolithiasis, who comes in due to her nephrostomy bag leaking. According to the patient, she got a nephrostomy tube placed at [facility] in January of 2024 due to nephrolithiasis, per patient her nephrostomy tube has been replaced 4 times in the past. patient was recently discharged from the hospital on 06/25/2024 after being treated for a malfunctioning nephrostomy tube. Per patient her nephrostomy bag has been leaking for the last 3 days, her home health nurse noticed the tubing coming out of the insertion site and suggested that there may be an infection and told her to go to the hospital which is what prompted this visit to the hospital. On review of systems patient is complaining of fatigue, yellowish diarrhea, foul-smelling urine and increasing anxiety and depression due to her recurrent malfunctioning nephrostomy tube. CT abdomen pelvis showed inferior displacement of nephrostomy tube now in the lower pole of calyx and cortex. Patient was admitted to the hospital and started on IV ceftriaxone for an acute complicated UTI and urology was consulted. Past Medical History diabetes, hypertension, seizure, depression, osteoarthritis, dyslipidemia, [place], nephrolithiasis Past Surgical History Cholecystectomy, nephrostomy tube placement Past Social History Smoking: Quit 8 years ago, prior to that was smoking 1 pack per day for 16 years Alcohol: Denies Drugs: Denies Allergy: Codeine, penicillin causes hives and edema. Review of Systems Constitutional: Yes: Malaise; No: Fever, Chills, Sweats, Weakness, Other Eyes: No: Pain, Vision change, Conjunctivae inflammation, Eyelid inflammation, Other, Redness ENT: No: Ear pain, Ear discharge, Nose pain, Nose discharge, Nose congestion, Mouth pain, Mouth swelling, Throat pain, Throat swelling, Other Respiratory: No: Cough, Dry, Shortness of breath, SOB with excertion, Wheezing, Hemoptysis, Pleuritic Pain, Sputum, Wheezing, Other Cardiovascular: No: Chest Pain, Palpitations, Orthopnea, Paroxysmal Noc. Dyspnea, Edema, Lt Headedness, Other Gastrointestinal: Nausea, Diarrhea; No: Vomiting, Abdominal Pain, Constipation, Melena, Hematochezia, Other Genitourinary: No Dysuria, No Frequency, No Incontinence, No Hematuria, No Retention, No Other Musculoskeletal: No: other, neck pain, shoulder pain, arm pain, back pain, hand pain, leg pain, foot pain Skin: No: Rash, Lesions, Jaundice, Bruising, Other Neurological: No: Weakness, Numbness, Incoordination, Change in speech, Confusion, Seizures, Other Allergies: Coded Allergies: Codeine (Verified Allergy, Unknown, 04/11/24) Penicillins (Verified Allergy, Unknown, 04/11/24) Medications Current Medications Medications Dose Ordered Sig/Hilda Route Start Time Stop Time Status Last Admin Dose Admin Acetaminophen 325 mg Q4HP PRN PO 09/18/24 23:00 UNV Ondansetron HCl 4 mg Q4HP PRN IV 09/18/24 23:00 UNV Docusate Sodium 100 mg BIDPRN PRN PO 09/18/24 23:00 UNV Ceftriaxone Sodium 50 ml @ 100 mls/hr DAILY@09 IV 09/19/24 09:00 UNV Amlodipine Besylate 10 mg DAILY PO 09/18/24 23:00 UNV Hydralazine HCl 20 mg Q8HR PO 09/19/24 06:00 UNV Pantoprazole Sodium 40 mg QAM PO 09/19/24 07:00 UNV Sucralfate 1 gm TID PO 09/19/24 06:00 UNV Patient Own Medication 1 tab HS PO 09/19/24 22:00 UNV Patient Own Medication 1 tab DAILY PO 09/18/24 23:00 UNV Patient Own Medication 1 tab BID PO 09/19/24 10:00 UNV Exam Vital Signs Vital Signs Date Time Temp Pulse Resp B/P (MAP) Pulse Ox O2 Delivery O2 Flow Rate FiO2 09/18/24 16:15 98.6 79 18 158/60 (92) 98 98.6 General Appearance: Alert, Oriented X3, Cooperative, No acute distress HEENT: Atraumatic, PERRLA, EOMI, Mucous membr. moist/pink Respiratory: Clear to auscultation, Normal air movement Cardiovascular: Normal S1, Normal S2 Abdominal: Normal bowel sounds, Soft, Other (Erythema, tenderness and discharge noted around nephrostomy tube site in the right lower back) Neuro: Normal speech, Strength at 5/5 X4 ext, Sensation intact Psych/Mental Status: Mental status NL, Mood NL Labs/Xrays Labs Test 09/18/24 19:51 09/18/24 17:24 09/18/24 17:03 Range/Units Lactic Acid Level 1.4 0.4-2.0 mmol/L White Blood Count 9.7 4.4-10.8 10^3/uL Red Blood Count 4.36 4.0-5.20 10^6/uL Hemoglobin 11.4 L 12.2-16.2 g/dL Hematocrit 34.8 L 36.0-46.0 % Mean Corpuscular Volume 79.8 L 80.0-100.0 fL Mean Corpuscular Hemoglobin 26.1 L 28.0-32.0 pg Mean Corpuscular Hemoglobin Concent 32.7 32.0-36.0 g/dL Red Cell Distribution Width 15.6 H 11.8-14.3 % Platelet Count 340 140-450 10^3/uL Mean Platelet Volume 7.4 6.9-10.8 fL Neutrophils (%) (Auto) 72.5 37.0-80.0 % Lymphocytes (%) (Auto) 19.6 10.0-50.0 % Monocytes (%) (Auto) 5.1 0.0-12.0 % Eosinophils (%) (Auto) 2.2 0.0-7.0 % Basophils (%) (Auto) 0.6 0.0-2.0 % Neutrophils # (Auto) 7.1 1.6-8.6 10 ^3/uL Lymphocytes # (Auto) 1.9 0.4-5.4 10 ^3/uL Monocytes # (Auto) 0.5 0-1.3 10 ^3/uL Eosinophils # (Auto) 0.2 0-0.8 10 ^3/uL Basophils # (Auto) 0.1 0-0.2 10 ^3/uL Nucleated Red Blood Cells 0.0 % Sodium Level 137 136-145 mmol/L Potassium Level 3.7 3.5-5.1 mmol/L Chloride Level 101 98-107 mmol/L Carbon Dioxide Level 25 20-31 mmol/L Anion Gap 11 5-15 Blood Urea Nitrogen 31 H 9-23 mg/dL Creatinine 1.85 H 0.550-1.02 mg/dL Glomerular Filtration Rate Calc 30 >90 mL/min BUN/Creatinine Ratio 16.8 10.0-20.0 Serum Glucose 249 H 74-106 mg/dL Calcium Level 9.7 8.7-10.4 mg/dL Total Bilirubin 0.4 0.2-1.0 mg/dL Aspartate Amino Transferase (AST) 14 13-40 U/L Alanine Aminotransferase (ALT) 21 7-40 U/L Alkaline Phosphatase 143 H 46-116 U/L Total Protein 7.0 5.7-8.2 g/dL Albumin 4.5 3.2-4.8 g/dL Urine Color Colorless Yellow Urine Clarity Turbid H Clear Urine pH 6.5 5.0-9.0 Urine Specific [place] 1.008 1.001-1.035 Urine Protein Trace H Negative Urine Ketones Negative Negative Urine Blood 1+ H Negative /uL Urine Nitrite Negative Negative Urine Bilirubin Negative Negative Urine Urobilinogen Normal Negative mg/dL Urine Leukocyte Esterase 3+ Negative /uL Urine RBC 1 0 - 4 /hpf Urine Microscopic WBC 32 H 0-5 /HPF Urine Squamous Epithelial Cells Few <5 /hpf Urine Amorphous Crystals Few None Seen /hpf Urine Bacteria Few H None Seen /hpf Urine Glucose Normal Normal mg/dL Assessment/Plan Assessment/Plan Inferiorly displaced nephrostomy tube Acute complicated UTI History of nephrolithiasis Left sided hydronephrosis - CT abdomen pelvis: Interval inferior displacement of the nephrostomy tube which is now seen in the lower pole calyx and cortex. Mild left renal hydronephrosis without urinary calculi. - IV ceftriaxone once, started on IV cefepime as pt recently treated with ceftriaxone - consulted Urology - urine culture - IV Zofran as needed SULTANA on CKD stage IIIB Lactic acidosis - IV NS 500 cc once - avoid nephrotoxic medications - monitor History of coronary artery disease History of [place]? Hypertension Possible hypertensive heart disease Dyslipidemia Type 2 diabetes, insulin dependent - resumed home medication atorvastatin - resumed home medication losartan, hydralazine - resumed home medication amlodipine - ordered Hb A1c - insulin Lantus 10 units q.p.m. 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 Currently not on any home antiseizure medications. - monitor History of GERD -resumed home medication Protonix and sucralfate DVT prophylaxis: Levonox 40mg (Mario 5) Goals of care: Full code, discussed for >16 minutes on 09/18/2024 Plan discussed with patient and patient's [id number] at bedside Plan discussed with Dr. Johnson Plan discussed with: Patient, Other ([id number], RN.) My Orders Orders - ALE LYLES RESIDENT Procedure Category Date Status Time Admit ADMIT 09/18/24 Transmitted 22:51 Allergies VALENTE 09/18/24 In Process 22:51 Code Status CODE 09/18/24 Transmitted 22:51 Renal DIET 09/19/24 Transmitted Standard(2gna,3gk,Lopho) Breakfast Acetaminophen Tablet PHA 09/18/24 Logged (Tylenol Tablet) 23:00 Ondansetron Hcl PHA 09/18/24 Logged (Zofran) 23:00 Docusate Sodium PHA 09/18/24 Logged Capsule (Colace 23:00 Complete Blood Count LAB 09/19/24 Verified 04:00 Comprehensive LAB 09/19/24 Verified Metabolic Panel 04:00 Pt Request For Service PT 09/18/24 Logged 22:51 Condition: Unstable VALENTE 09/18/24 In Process 22:51 Notify Md Of Changes VALENTE 09/18/24 In Process From Base 22:51 Ceftriaxone 1gm/50ml PHA 09/19/24 Logged D5w (Rocephin) 09:00 Ceftriaxone 1gm/50ml PHA 09/18/24 Logged D5w (Rocephin) 23:00 Urine Bacterial DAVIN 09/18/24 Logged Culture 22:51 Lactic Acid W/ Reflex LAB 09/18/24 Logged Order 22:51 * Urology Consult CONS 09/18/24 Transmitted 22:51 Sodium Chloride 0.9% PHA 09/18/24 Logged 23:00 Amlodipine Tablet PHA 09/18/24 Logged (Norvasc Tablet) 23:00 Hydralazine Hcl PHA 09/19/24 Logged Tablet (Apresoline 06:00 Pantoprazole Tablet PHA 09/19/24 Logged (Protonix Tablet) 07:00 Sucralfate Tab PHA 09/19/24 Logged (Carafate Tab) 06:00 (Nf) Atorvastatin PHA 09/19/24 Logged Calcium 22:00 (Nf) Losartan PHA 09/18/24 Logged Potassium 23:00 (Nf) Sertraline Hcl PHA 09/19/24 Logged 10:00 Date of Service: September 18, 2024 Billing Provider: LAYLA JOHNSON MD Common Visit Codes: [id number] INP/OBS CARE (HIGH) ALE LYLES RESIDENT September 18, 2024 23:13
[2024-09-19] VITALS (16 sets, daily range): BP systolic 104–149; BP diastolic 50–67; PULSE 68–79; RESP 13–18; TEMP 97.7–98.6; O2SAT 94–98
[2024-09-19 00:18] LABS: Folate (Folic Acid) 21.73 ng/mL (>5.38)
[2024-09-19] MEDS: amLODIPine BESYLATE 5 MG TAB PO SCH (00:23)
[2024-09-19] MEDS: InsuLIN REG 1unit/0.01ml Soln (100units/ml) SC SCH (00:23)
[2024-09-19] MEDS: ACCU-CHEK COMFORT CURVE STRIP VI SCH (00:24)
[2024-09-19] MEDS: INSULIN LANTUS (GLARGINE) 1 /0.01ml (100units/ml) SC SCH (00:27)
--- NOTE | 2024-09-19 00:57 | DVH ---
CHEST RADIOGRAPH Indication: cough Technique: Frontal and lateral view of the chest was obtained Comparison: None FINDINGS: Lines and Tubes: None Lungs: Clear Pleura: No effusion. No pneumothorax. Cardiomediastinal contours: Unremarkable Bones: Mild thoracic spondylosis. Otherwise unremarkable. IMPRESSION: No cardiopulmonary abnormality.
[2024-09-19] MEDS: cefTRIAXone 1GM/50ML D5W 50 ML IV ONE ×2 (01:30→02:09)
[2024-09-19] MEDS: SODIUM CHLORIDE 0.9% 500 ML IV ONE (02:09)
[2024-09-19 06:11] LABS: Basophils # (auto) 0 10 ^3/uL (0-0.2); Eosinophils # (auto) 0.3 10 ^3/uL (0-0.8); Hemoglobin 10.8 g/dL (12.2-16.2); Lymphocytes # (auto) 2.5 10 ^3/uL (0.4-5.4); Monocytes # (auto) 0.5 10 ^3/uL (0-1.3); Neutrophils # (auto) 5.4 10 ^3/uL (1.6-8.6); White Blood Cell 8.7 10^3/uL (4.4-10.8)
[2024-09-19 06:12] LABS: Basophils % (auto) 0.5 % (0.0-2.0); Hematocrit 33.3 % (36.0-46.0); Lymphocytes % (auto) 29.2 % (10.0-50.0); Mean Corpuscular Hemoglobin 25.7 pg (28.0-32.0); Mean Corpuscular Hgb Conc. 32.5 g/dL (32.0-36.0); Mean Corpuscular Volume 79.2 fL (80.0-100.0); Monocytes % (auto) 5.6 % (0.0-12.0); Neutrophils % (auto) 61.7 % (37.0-80.0); Platelet Count (auto) 309 10^3/uL (140-450); Red Blood Cells 4.21 10^6/uL (4.0-5.20)
[2024-09-19] MEDS: SUCRALFATE 1 GM TAB PO SCH (06:26)
[2024-09-19] MEDS: hydrALAZINE HCL 10 MG TAB PO SCH (06:29)
[2024-09-19 06:35] LABS: Alanine Aminotransferase 17 U/L (7-40); Albumin 4.5 g/dL (3.2-4.8); Anion Gap 9 (5-15); BUN/Creatinine Ratio 22.8 (10.0-20.0); Calcium 9.8 mg/dL (8.7-10.4); Carbon Dioxide 24 mmol/L (20-31); Potassium 3.6 mmol/L (3.5-5.1); Sodium 141 mmol/L (136-145); Total Protein 6.8 g/dL (5.7-8.2)
[2024-09-19 06:40] LABS: Alkaline Phosphatase 138 U/L (46-116); Aspartate Aminotransferase 9 U/L (13-40); Bilirubin, Total 0.3 mg/dL (0.2-1.0); Blood Urea Nitrogen 36 mg/dL (9-23); Chloride 108 mmol/L (98-107); Glucose 64 mg/dL (74-106)
[2024-09-19 07:18] LABS: Partial Thromboplastin Time 25.9 SEC (24.5-34.5); Prothrombin Time 10.6 sec (9.3-11.8)
[2024-09-19] MEDS: PANTOPRAZOLE 40 MG TAB PO SCH (07:25)
[2024-09-19] MEDS: LIDOCAINE 2%HCL (LOCAL ANESTH.) INJ 20ML MDV ONE (08:57)
[2024-09-19] MEDS: fentaNYL CITRATE 100 MCG/2 ML VL ONE (08:57)
[2024-09-19] MEDS: MIDAZOLAM HCL 2MG/2ML 2ml VIAL (1mg/ml) ONE (08:57)
[2024-09-19] MEDS ORDERED: cefTRIAXone 1GM/50ML D5W 50 ML IV SCH (09:00)
[2024-09-19] MEDS: CEFEPIME 1GM/ 50ML 50 ML IV SCH (10:10)
[2024-09-19] MEDS: levETIRAcetam 500 MG TAB PO ONE (10:15)
[2024-09-19] MEDS: LOSARTAN POTASSIUM 50 MG TAB PO SCH (10:16)
[2024-09-19] MEDS: SERTRALINE HCL 50 MG TAB PO SCH (10:16)
[2024-09-19] MEDS: GABAPENTIN 100 MG CAP PO ONE (10:17)
[2024-09-19] MEDS: ENOXAPARIN SOD 40 MG/0.4 ML SYRINGE SC SCH (10:17)
--- NOTE | 2024-09-19 11:33 | DVH ---
XY CHANGE PERC. DRAIN W CONTRAST, HISTORY: Dislodged nephrostomy tube PROCEDURE: Informed consent was obtained. The patient was placed on the fluoroscopic table in a prone position and IV sedation administered. The right flank was prepped with chlorhexidine which was allo wed to dry and draped in the usual sterile fashion. Time out was performed. and the soft tissues infi ltrated with 1% lidocaine local anesthetic. An antegrade nephrostogram was performed to confirm posit ion of the previous nephrostomy tube. The tube was cut and a stiff glidewire was inserted through the nephrostomy tube into the ureter. The prior nephrostomy tube was removed, and a new 8.5 Fr multipurp ose drainage catheter was advanced into the renal pelvis over a wire. Completion antegrade nephrostog rosanna demonstrates appropriate position of the new nephrostomy tube in the renal pelvis. The catheter w as secured in place and connected to gravity drainage. A sterile dressing was applied. No immediate c omplication was identified. DAP 110 FLUOROSCOPY TIME: 0.8 minutes. CONTRAST USED: 10 mL . SEDATION: Dr. Olive Everett was personally responsible for the administration of moderate sedation during the procedure performed, including the use of an independent trained observer who had no other duties during the procedure. The drugs utilized were IV fentanyl and versed (see nursing log for details). The total time of supervision by the attending physician was approximately 15 minutes. FINDINGS: Nephrostomy tube within pigtail coiled in the right renal pelvis. IMPRESSION: Successful exchange/reposition of a right sided nephrostomy tube, with placement of a new 8.5 fr mult ipurpose drainage catheter in the right sided renal pelvis. PLAN: Routine catheter care.
--- NOTE | 2024-09-19 17:37 | DVHPNRES ---
Progress Note Date Seen: September 19, 2024 Resident Creating Document: SHAE OSUNA ROMAN Has the PT tested + for MRSA If YES, has PT been informed?: No Medical Necessity Reason Pt with a Central, PICC or Fol: No Subjective Review of Systems Patient is a 64-year-old female with past medical history of diabetes, hypertension, seizure, depression, osteoarthritis, dyslipidemia, [place], nephrolithiasis, who comes in due to her nephrostomy bag leaking. According to the patient, she got a nephrostomy tube placed at [facility] in January of 2024 due to nephrolithiasis, per patient her nephrostomy tube has been replaced 4 times in the past. patient was recently discharged from the hospital on 06/25/2024 after being treated for a malfunctioning nephrostomy tube. Per patient her nephrostomy bag has been leaking for the last 3 days, her home health nurse noticed the tubing coming out of the insertion site and suggested that there may be an infection and told her to go to the hospital which is what prompted this visit to the hospital. On review of systems patient is complaining of fatigue, yellowish diarrhea, foul-smelling urine and increasing anxiety and depression due to her recurrent malfunctioning nephrostomy tube. CT abdomen pelvis showed inferior displacement of nephrostomy tube now in the lower pole of calyx and cortex. Patient was admitted to the hospital and started on IV ceftriaxone for an acute complicated UTI and urology was consulted. Past Medical History diabetes, hypertension, seizure, depression, osteoarthritis, dyslipidemia, [place], nephrolithiasis Past Surgical History Cholecystectomy, nephrostomy tube placement Past Social History Smoking: Quit 8 years ago, prior to that was smoking 1 pack per day for 16 years Patient seen and examined at the bedside. Patient is complaining of right-sided flank pain. Patient reports: No new complaints, Feels better Changes from previous H/P or p: Changes Objective vital signs Vital Sign Date Time Temp Pulse Resp B/P (MAP) Pulse Ox O2 Delivery O2 Flow Rate FiO2 09/19/24 16:54 71 16 122/66 (84) 95 09/19/24 13:00 97.7 97.7 09/19/24 00:11 Room Air* 0 21 Total Intake and Output 09/18/24 09/18/24 09/19/24 15:00 23:00 07:00 Intake Total 600 ml Balance 600 ml medications Current Medications Medications Dose Ordered Sig/Hilda Route Start Time Stop Time Status Last Admin Dose Admin Acetaminophen 325 mg Q4HP PRN PO 09/18/24 23:00 Ondansetron HCl 4 mg Q4HP PRN IV 09/18/24 23:00 Docusate Sodium 100 mg BIDPRN PRN PO 09/18/24 23:00 Amlodipine Besylate 10 mg DAILY PO 09/18/24 23:00 09/19/24 10:15 10 MG Hydralazine HCl 20 mg Q8HR PO 09/19/24 06:00 09/19/24 13:40 20 MG Pantoprazole Sodium 40 mg QAM PO 09/19/24 07:00 09/19/24 07:25 40 MG Sucralfate 1 gm TID PO 09/19/24 06:00 09/19/24 13:40 1 GM Atorvastatin Calcium 40 mg HS PO 09/19/24 22:00 Losartan Potassium 100 mg DAILY PO 09/19/24 10:00 09/19/24 10:16 100 MG Sertraline HCl 100 mg BID PO 09/19/24 10:00 09/19/24 10:16 100 MG Insulin Glargine 10 units HS SC 09/18/24 23:00 09/19/24 00:27 10 UNITS Diagnostic Test (Pha) 1 strip IQ4HR 09/19/24 00:00 09/19/24 16:37 1 STRIP Insulin Human Regular IQ4HR SC 09/19/24 00:00 09/19/24 16:37 2 UNITS Dextrose 50 ml UD PRN IV 09/18/24 23:00 Enoxaparin Sodium 40 mg DAILY SC 09/19/24 10:00 09/19/24 10:17 40 MG Cefepime HCl 50 ml @ 12.5 mls/hr Q12HR IV 09/19/24 10:00 09/19/24 10:10 12.5 MLS/HR Levetiracetam 1,000 mg DAILY PO 09/20/24 10:00 Gabapentin 100 mg BID PO 09/19/24 22:00 Examination General Appearance: Alert, Oriented X3, Cooperative, No acute distress HEENT: Atraumatic, PERRLA, EOMI, Mucous membrane moist/pink Respiratory: Clear to auscultation, Normal air movement Cardiovascular: Regular rate, Normal S1, Normal S2, No murmurs, no chest wall tenderness Abdominal: Patient seen post nephrostomy tube adjustment, dressing is intact with no leakage or sign of infection. Extremities: No clubbing, No cyanosis, No edema, Normal pulses, No tenderness/swelling Skin: No rashes, No breakdown, No significant lesion Neuro: Normal gait, Normal speech, Strength at 5/5 X4 ext, Normal tone, Sensation intact, Cranial nerves 3-12 NL, Reflexes 2+ Psych/Mental Status: Mental status NL, Mood NL laboratory and microbiology Laboratory Tests 09/19/24 05:38 Test 09/19/24 05:38 Range/Units Serum Glucose 64 L 74-106 mg/dL Labs and/or images reviewed: Labs reviewed by me, Image(s) reviewed by me Problem List/Assessment/Plan Problem List/Assessment/Plan Complicated UTI Mild left renal hydronephrosis Displaced nephrostomy tube lactic acidosis CT scan shows, Interval inferior displacement of the nephrostomy tube which is now seen in the lower pole calyx and cortex with mild left renal hydronephrosis without urinary calculi IR consulted, adjusted nephrostomy tube Urology consulted, recommended outpatient basis follow up Empiric antibiotic, Rocephin IV fluid Pain management SULTANA, on CKD grade 3B, likely VMN IV fluid History of coronary artery disease History of NH? 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 Currently not on any home antiseizure medications. History of GERD Moderate anemia, hypochromic microcytic Continue home meds DIET: Renal diet DVT PROPHYLAXIS: Lovenox GI PROPHYLAXIS:: Protonix CODE STATUS: Goal of care discussed for more than 18 minutes, full code DISPOSITION: Med/surge Patient's status and plan discussed with the patient. Case discussed with Dr. Lemon. Plan discussed with: Patient, Other (RN) My Orders My Orders Orders - SHAE OSUNA Procedure Category Date Status Time Gabapentin Capsule PHA 09/19/24 In Process (Neurontin Capsule) 22:00 Drug Screen LAB 09/19/24 Logged 08:25 Levetiracetam Tablet PHA 09/20/24 In Process (Keppra Tablet) 10:00 SHAE OSUNA RESDILIN September 19, 2024 17:37
[2024-09-19] MEDS: ATORVASTATIN 20 MG TAB PO SCH (22:23)
[2024-09-19] MEDS: GABAPENTIN 100 MG CAP PO SCH (22:23)
[2024-09-20 01:00] VITALS: BP 130/51; PULSE 62; RESP 18; TEMP 98; O2SAT 18
[2024-09-20 05:00] VITALS: BP 127/50; PULSE 70; RESP 18; TEMP 98.2; O2SAT 97
[2024-09-20 07:17] LABS: Basophils # (auto) 0 10 ^3/uL (0-0.2); Basophils % (auto) 0.5 % (0.0-2.0); Eosinophils # (auto) 0.3 10 ^3/uL (0-0.8); Eosinophils % (auto) 4.4 % (0.0-7.0); Hematocrit 31.5 % (36.0-46.0); Hemoglobin 10.2 g/dL (12.2-16.2); Lymphocytes # (auto) 1.2 10 ^3/uL (0.4-5.4); Lymphocytes % (auto) 19.9 % (10.0-50.0); Mean Corpuscular Hemoglobin 25.7 pg (28.0-32.0); Mean Corpuscular Hgb Conc. 32.5 g/dL (32.0-36.0); Mean Corpuscular Volume 79.1 fL (80.0-100.0); Monocytes # (auto) 0.3 10 ^3/uL (0-1.3); Monocytes % (auto) 5.5 % (0.0-12.0); Neutrophils # (auto) 4.1 10 ^3/uL (1.6-8.6); Neutrophils % (auto) 69.7 % (37.0-80.0); Platelet Count (auto) 259 10^3/uL (140-450); Red Blood Cells 3.98 10^6/uL (4.0-5.20); Red Cell Distribution Width 15.7 % (11.8-14.3); White Blood Cell 5.9 10^3/uL (4.4-10.8)
[2024-09-20 07:24] LABS: Alanine Aminotransferase 15 U/L (7-40); Alkaline Phosphatase 105 U/L (46-116); Anion Gap 11 (5-15); Aspartate Aminotransferase 15 U/L (13-40); BUN/Creatinine Ratio 18.2 (10.0-20.0); Calcium 9.7 mg/dL (8.7-10.4); Carbon Dioxide 23 mmol/L (20-31); Sodium 143 mmol/L (136-145); Total Protein 6.3 g/dL (5.7-8.2)
[2024-09-20 07:25] LABS: Bilirubin, Total 0.5 mg/dL (0.2-1.0)
[2024-09-20 07:32] LABS: Blood Urea Nitrogen 32 mg/dL (9-23); Chloride 109 mmol/L (98-107); Glucose 127 mg/dL (74-106)
[2024-09-20 08:00] VITALS: PULSE 71; RESP 20; O2SAT 96
[2024-09-20 09:00] VITALS: BP 133/55; PULSE 71; RESP 20; TEMP 97.8; O2SAT 96
[2024-09-20 10:09] VITALS: BP 133/55; PULSE 71; RESP 20; TEMP 97.8; O2SAT 96
[2024-09-20] MEDS: levETIRAcetam 500 MG TAB PO SCH (10:16)
[2024-09-20] MEDS ORDERED: CEPH500C PO (10:18)
--- NOTE | 2024-09-20 10:19 | DVHDSRES ---
Discharge Summary Date of Admission Resident Creating Document: SHAE OSUNA RESDIENT September 18, 2024 at 22:51 Date of Discharge: September 20, 2024 Admitting Diagnosis Dislodged nephrostomy tube Labs/Diagnostic Data: Laboratory Results Test 09/20/24 07:58 09/20/24 06:05 09/19/24 05:38 09/18/24 23:40 POC Glucose 141 mg/dl (70-106) White Blood Count 5.9 10^3/uL (4.4-10.8) Red Blood Count 3.98 10^6/uL (4.0-5.20) Hemoglobin 10.2 g/dL (12.2-16.2) Hematocrit 31.5 % (36.0-46.0) Mean Corpuscular Volume 79.1 fL (80.0-100.0) Mean Corpuscular Hemoglobin 25.7 pg (28.0-32.0) Mean Corpuscular Hemoglobin Concent 32.5 g/dL (32.0-36.0) Red Cell Distribution Width 15.7 % (11.8-14.3) Platelet Count 259 10^3/uL (140-450) Mean Platelet Volume 7.7 fL (6.9-10.8) Neutrophils (%) (Auto) 69.7 % (37.0-80.0) Lymphocytes (%) (Auto) 19.9 % (10.0-50.0) Monocytes (%) (Auto) 5.5 % (0.0-12.0) Eosinophils (%) (Auto) 4.4 % (0.0-7.0) Basophils (%) (Auto) 0.5 % (0.0-2.0) Neutrophils # (Auto) 4.1 10 ^3/uL (1.6-8.6) Lymphocytes # (Auto) 1.2 10 ^3/uL (0.4-5.4) Monocytes # (Auto) 0.3 10 ^3/uL (0-1.3) Eosinophils # (Auto) 0.3 10 ^3/uL (0-0.8) Basophils # (Auto) 0 10 ^3/uL (0-0.2) Nucleated Red Blood Cells 0.0 % Sodium Level 143 mmol/L (136-145) Potassium Level 4.0 mmol/L (3.5-5.1) Chloride Level 109 mmol/L (98-107) Carbon Dioxide Level 23 mmol/L (20-31) Anion Gap 11 (5-15) Blood Urea Nitrogen 32 mg/dL (9-23) Creatinine 1.76 mg/dL (0.550-1.02) Glomerular Filtration Rate Calc 32 mL/min (>90) BUN/Creatinine Ratio 18.2 (10.0-20.0) Serum Glucose 127 mg/dL (74-106) Calcium Level 9.7 mg/dL (8.7-10.4) Total Bilirubin 0.5 mg/dL (0.2-1.0) Aspartate Amino Transferase (AST) 15 U/L (13-40) Alanine Aminotransferase (ALT) 15 U/L (7-40) Alkaline Phosphatase 105 U/L (46-116) Total Protein 6.3 g/dL (5.7-8.2) Albumin 4.0 g/dL (3.2-4.8) Prothrombin Time 10.6 sec (9.3-11.8) Prothrombin Time INR 1.00 (0.9-1.15) Activated Partial Thromboplast Time 25.9 SEC (24.5-34.5) Vitamin B12 Level 681 pg/mL (211-911) Vitamin D 25-Hydroxy 50.8 ng/mL (30.0-100) Folic Acid 21.73 ng/mL (>5.38) Test 09/18/24 23:10 09/18/24 17:24 09/18/24 17:03 Lactic Acid Level 1.2 mmol/L (0.4-2.0) Thyroid Stimulating Hormone (TSH) 2.18 uIU/mL (0.55-4.78) Hemoglobin A1c 8.5 % A1C (<5.7) Urine Color Colorless (Yellow) Urine Clarity Turbid (Clear) Urine pH 6.5 (5.0-9.0) Urine Specific [place] 1.008 (1.001-1.035) Urine Protein Trace (Negative) Urine Ketones Negative (Negative) Urine Blood 1+ /uL (Negative) Urine Nitrite Negative (Negative) Urine Bilirubin Negative (Negative) Urine Urobilinogen Normal mg/dL (Negative) Urine Leukocyte Esterase 3+ /uL (Negative) Urine RBC 1 /hpf (0 - 4) Urine Microscopic WBC 32 /HPF (0-5) Urine Squamous Epithelial Cells Few /hpf (<5) Urine Amorphous Crystals Few /hpf (None Seen) Urine Bacteria Few /hpf (None Seen) Urine Glucose Normal mg/dL (Normal) Other Laboratory Tests 09/20/24 06:05 Brief Hx & Hospital Course: Patient is a 64-year-old female with past medical history of diabetes, hypertension, seizure, depression, osteoarthritis, dyslipidemia, RI, nephrolithiasis, who comes in due to her nephrostomy bag leaking. According to the patient, she got a nephrostomy tube placed at [facility] in January of 2024 due to nephrolithiasis, per patient her nephrostomy tube has been replaced 4 times in the past. patient was recently discharged from the hospital on 06/25/2024 after being treated for a malfunctioning nephrostomy tube. Per patient her nephrostomy bag has been leaking for the last 3 days, her home health nurse noticed the tubing coming out of the insertion site and suggested that there may be an infection and told her to go to the hospital which is what prompted this visit to the hospital. On review of systems patient is complaining of fatigue, yellowish diarrhea, foul-smelling urine and increasing anxiety and depression due to her recurrent malfunctioning nephrostomy tube. CT abdomen pelvis showed inferior displacement of nephrostomy tube now in the lower pole of calyx and cortex. Patient was admitted to the hospital and started on IV ceftriaxone for an acute complicated UTI and urology was consulted. Past Medical History diabetes, hypertension, seizure, depression, osteoarthritis, dyslipidemia, RI, nephrolithiasis Past Surgical History Cholecystectomy, nephrostomy tube placement Past Social History Smoking: Quit 8 years ago, prior to that was smoking 1 pack per day for 16 years Distal source: The patient was admitted due to UTI and dislodged nephrostomy tube. The patient was given empiric antibiotic Rocephin, IV fluid and pain management. Interventional Radiology consulted, adjusted nephrostomy tube with no pre and postoperative complication. Urology consulted, recommended outpatient follow up. During hospital admission home medications were continued. On 07/23/24, the patient was feeling better since admission. Discharge plan with the patient and the patient discharged home. Discharge plan: Follow up with the PCP within 1 week of the discharge. Follow up with the Urology on outpatient basis. Keflex 500 mg b.i.d. for 5 days Continue home meds Operations or Procedures [facility] [id number] [facility] [id number] Ph: [phone] DIAGNOSTIC IMAGING Diagnostic Imaging Report : [id number] Signed PATIENT: LOUIS DE GUZMAN ACCT: [id number] UNIT: [id number] : 1960 LOC: OVERFLOW ROOM / BED: 1009-ER / A AGE / SEX: 64 / F ADM STATUS: ADM IN SERVICE 0946 ORDERING PHYSICIAN: ALE LYLES RESIDENT PROCEDURE(s): PERCDRACH - CHANGE PERC. DRAIN W CONTRAST REASON: ORDER NUMBER(s): [id number], ACCESSION NUMBER(s): [id number] XY CHANGE PERC. DRAIN W CONTRAST, HISTORY: Dislodged nephrostomy tube PROCEDURE: Informed consent was obtained. The patient was placed on the fluoroscopic table in a prone position and IV sedation administered. The right flank was prepped with chlorhexidine which was allowed to dry and draped in the usual sterile fashion. Time out was performed. and the soft tissues infiltrated with 1% lidocaine local anesthetic. An antegrade nephrostogram was performed to confirm position of the previous nephrostomy tube. The tube was cut and a stiff glidewire was inserted through the nephrostomy tube into the ureter. The prior nephrostomy tube was removed, and a new 8.5 Fr multipurpose drainage catheter was advanced into the renal pelvis over a wire. Completion antegrade nephrostogram demonstrates appropriate position of the new nephrostomy tube in the renal pelvis. The catheter was secured in place and connected to gravity drainage. A sterile dressing was applied. No immediate complication was identified. DAP 110 FLUOROSCOPY TIME: 0.8 minutes. CONTRAST USED: 10 mL . SEDATION: Dr. Olive Everett was personally responsible for the administration of moderate sedation during the procedure performed, including the use of an independent trained observer who had no other duties during the procedure. The drugs utilized were IV fentanyl and versed (see nursing log for details). The total time of supervision by the attending physician was approximately 15 minutes. FINDINGS: Nephrostomy tube within pigtail coiled in the right renal pelvis. IMPRESSION: Successful exchange/reposition of a right sided nephrostomy tube, with placement of a new 8.5 fr multipurpose drainage catheter in the right sided renal pelvis. PLAN: Routine catheter care. ATED BY: BRENT EVERETT MD DICTATED DATE/TIME: 09/19/24 113 SIGNED BY: BRENT EVERETT MD SIGNED DATE/TIME: 09/19/24 1131 CC: Condition at Discharge: Stable Final Diagnosis/Problems List Complicated UTI Mild left renal hydronephrosis Displaced nephrostomy tube lactic acidosis SULTANA, on CKD grade 3B, likely VMN History of coronary artery disease History of RI? 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 Currently not on any home antiseizure medications. History of GERD Moderate anemia, hypochromic microcytic Discharge Disposition: Home Discharge Instruct/Medications Diet: Cardiac 2g Na,low cholest Activity: No Restrictions, As Tolerated Follow Up/Referral: Follow up with the PCP within 1 week after discharge follow up with the Urology on outpatient basis Medications: Keflex 500 mg b.i.d. for 5 days Continue home meds Discharge Statement: "Patient was advised to return to the ER or call 911 if any headaches, dizziness, shortness of breath, chest pain, abdominal pain, bleeding, fevers, or worsening of medical condition. Patient was counseled about treatment plan, medications, possible side effects, patientverbalized understanding. All questions were answered to the best of my ability. This discharge took greater then 30 minutes in planning, reviewing documentation, counseling the patient, and discussing with other team members." ASSESSMENT ASSESSMENT Assessment Displaced nephrostomy tube UTI SHAE OSUNA RESDIENT September 20, 2024 10:19
--- NOTE | 2024-09-20 11:27 | DVHINCON2 ---
Date of service: September 19, 2024 Referring Physician Robbie Lemon MD Reason for Consultation Acute kidney injury History of Present Illness Beatris Sinclair is a 64-year-old Female with Past Medical History of Diabetes, Hypertension, Seizure, Depression, Osteoarthritis, Dyslipidemia, NM and Nephrolithiasis who presented to the hospital with complaint of her nephrostomy bag leaking. Patient had nephrostomy tube placed at [facility] in January of 2024 due to nephrolithiasis. Patient states her nephrostomy bag had been leaking for the last 3 days. HH nurse noticed the tubing coming out of the insertion site and suggested that there may be an infection. Patient also reported associated fatigue, yellowish diarrhea, foul- smelling urine and increasing anxiety and depression due to her recurrent malfunctioning nephrostomy tube. Patient reports having her nephrostomy tube replaced 4 times in the past.While in ED, CT abdomen pelvis showed inferior displacement of nephrostomy tube now in the lower pole of calyx and cortex. Patient was admitted and started on IV ceftriaxone for acute complicated UTI. Interventional Radiology consulted, adjusted nephrostomy tube with no pre and postoperative complication. Urology also consulted and recommended outpatient follow up. AM labs are remarkable for Creatinine 1.58 with BUN of 36. Urine cultures reported mixed papito. Allergies: Coded Allergies: Codeine (Verified Allergy, Unknown, 04/11/24) Penicillins (Verified Allergy, Unknown, 04/11/24) Home Meds Active Scripts Cephalexin Monohydrate (Cephalexin) 500 Mg Cap, 500 MG PO BID for 5 Days, #10 CAP Prov:SHAE OSUNA RESDIENT 09/20/24 Nitrofurantoin (MACRODANTIN CAPSULE) 50 Mg Cp, 1 CAP PO DAILY for 7 Days, #30 CAP 11 Refills Prov:KEKE RAMÍREZ RESIDENT 06/25/24 Mirtazapine (Remeron) 30 Mg Tb, 15 MG PO HS for 30 Days, #15 TAB Prov:JAYCEE LUCIANO MD 04/15/24 Hydralazine Hcl (Hydralazine Hcl) 10 Mg Tab, 20 MG PO Q8HR for 30 Days, #180 TAB Prov:JAYCEE LUCIANO MD 04/15/24 Amlodipine Besylate (NORVASC TABLET) 5 Mg Tb, 10 MG PO DAILY for 30 Days, #60 TAB Prov:JAYCEE LUCIANO MD 04/15/24 Reported Medications Insulin Glargine (Basaglar Kwikpen) 100 Unit/Ml Inj, 20 UNIT SC HS 04/11/24 Glimepiride (Glimepiride) 4 Mg Tab, 1 TAB PO BID 04/11/24 Metformin Hydrochloride (Metformin Hcl) 1,000 Mg Tab, 1 TAB PO BID 04/11/24 Losartan Potassium (Losartan Potassium) 100 Mg Tab, 1 TAB PO DAILY 04/11/24 Atorvastatin Calcium (ATORVASTATIN CALCIUM) 40 Mg Tab, 1 TAB PO HS 04/11/24 Montelukast Sodium (MONTELUKAST SODIUM) 10 Mg Tab, 1 TAB PO DAILY 04/11/24 Pantoprazole Sodium Sesquihydr (Pantoprazole Sodium) 40 Mg Tab, 1 TAB PO QAM 04/11/24 Sucralfate (Sucralfate) 1 Gm Tab, 1 TAB PO TID 04/11/24 Sertraline Hcl (Sertraline Hcl) 100 Mg Tab, 1 TAB PO BID 04/11/24 Discontinued Scripts Fosfomycin Tromethamine (Fosfomycin Tromethamine) 3 Gm Pow, 3 GM PO Q72HR for 9 Days, #3 POW Prov:KEKE RAMÍREZ [facility] 06/25/24 Ciprofloxacin Hcl (Cipro) 500 Mg Tab, 1 TAB PO BID, #20 TAB Prov:RAHUL NEWBY MD 05/14/24 Sulfamethoxazole W/Trimethopri (Bactrim Ds Tablet) 1 Tab Tb, 1 TAB PO BID for 10 Days, #20 TAB Prov:GREG MOODY MD 05/10/24 Levofloxacin Hemihydrate (LEVOFLOXACIN) 500 Mg Tab, 1 TAB PO DAILY for 5 Days, #5 TAB Prov:JAYCEE LUCIANO MD 04/15/24 Current Medications Current Medications Medications (Trade) Dose Ordered Sig/Hilda Route PRN Reason Start Time Stop Time Status Last Admin Atorvastatin Calcium (Lipitor) 40 mg HS PO 09/19/24 22:00 09/19/24 22:23 Levetiracetam (Keppra Tablet) 1,000 mg DAILY PO 09/20/24 10:00 09/20/24 10:16 Gabapentin (Neurontin Capsule) 100 mg BID PO 09/19/24 22:00 09/20/24 10:16 Family History: Diabetes mellitus G8 MOTHER, FH: diabetes mellitus FH: heart attack FH: liver cancer FH: pancreatic cancer Other blood disorders G8 MOTHER, Pancreatic cancer Review of Systems Constitutional: Yes: Malaise Gastrointestinal: Nausea, Diarrhea All other systems reviewed and negative unless otherwise noted in HPI. H&P Exam Vital Signs/I&O Vital Sign Date Time Temp Pulse Resp B/P (MAP) Pulse Ox O2 Delivery O2 Flow Rate FiO2 09/20/24 10:17 133/55 09/20/24 10:09 97.8 71 20 96 09/20/24 08:00 Room Air* 0 21 Intake and Output 09/19/24 09/20/24 19:00 07:00 Intake Total 50 ml 400 ml Balance 50 ml 400 ml Intake Oral 400 ml IV Total 50 ml # Voids 1 Physical Exam Vitals and nursing notes reviewed. General Appearance: Alert, Oriented X3, Cooperative, No acute distress HEENT: Atraumatic, PERRLA, EOMI, Mucous membr. moist/pink Respiratory: Clear to auscultation, Normal air movement Cardiovascular: Normal S1, Normal S2 Abdominal: Normal bowel sounds, Soft Neuro: Normal speech, Strength at 5/5 X4 ext, Sensation intact Psych/Mental Status: Mental status NL, Mood NL Skin: Warm and dry. Labs/Diagnostic Data Labs/Diagnostic Data Laboratory Tests Test 09/20/24 07:58 09/20/24 06:05 09/20/24 04:25 09/20/24 00:03 Range/Units POC Glucose 141 H 115 H 109 H 70-106 mg/dl White Blood Count 5.9 # 4.4-10.8 10^3/uL Red Blood Count 3.98 L 4.0-5.20 10^6/uL Hemoglobin 10.2 L 12.2-16.2 g/dL Hematocrit 31.5 L 36.0-46.0 % Mean Corpuscular Volume 79.1 L 80.0-100.0 fL Mean Corpuscular Hemoglobin 25.7 L 28.0-32.0 pg Mean Corpuscular Hemoglobin Concent 32.5 32.0-36.0 g/dL Red Cell Distribution Width 15.7 H 11.8-14.3 % Platelet Count 259 140-450 10^3/uL Mean Platelet Volume 7.7 6.9-10.8 fL Neutrophils (%) (Auto) 69.7 37.0-80.0 % Lymphocytes (%) (Auto) 19.9 10.0-50.0 % Monocytes (%) (Auto) 5.5 0.0-12.0 % Eosinophils (%) (Auto) 4.4 0.0-7.0 % Basophils (%) (Auto) 0.5 0.0-2.0 % Neutrophils # (Auto) 4.1 1.6-8.6 10 ^3/uL Lymphocytes # (Auto) 1.2 0.4-5.4 10 ^3/uL Monocytes # (Auto) 0.3 0-1.3 10 ^3/uL Eosinophils # (Auto) 0.3 0-0.8 10 ^3/uL Basophils # (Auto) 0 0-0.2 10 ^3/uL Nucleated Red Blood Cells 0.0 % Sodium Level 143 136-145 mmol/L Potassium Level 4.0 3.5-5.1 mmol/L Chloride Level 109 H 98-107 mmol/L Carbon Dioxide Level 23 20-31 mmol/L Anion Gap 11 5-15 Blood Urea Nitrogen 32 H 9-23 mg/dL Creatinine 1.76 H 0.550-1.02 mg/dL Glomerular Filtration Rate Calc 32 >90 mL/min BUN/Creatinine Ratio 18.2 10.0-20.0 Serum Glucose 127 H 74-106 mg/dL Calcium Level 9.7 8.7-10.4 mg/dL Total Bilirubin 0.5 0.2-1.0 mg/dL Aspartate Amino Transferase (AST) 15 13-40 U/L Alanine Aminotransferase (ALT) 15 7-40 U/L Alkaline Phosphatase 105 46-116 U/L Total Protein 6.3 5.7-8.2 g/dL Albumin 4.0 3.2-4.8 g/dL Test 09/19/24 20:00 09/19/24 16:30 09/19/24 12:53 09/19/24 08:16 Range/Units POC Glucose 245 H 133 H 143 H 103 70-106 mg/dl Test 09/19/24 05:38 09/19/24 03:14 09/19/24 00:16 09/18/24 23:40 Range/Units White Blood Count 8.7 4.4-10.8 10^3/uL Red Blood Count 4.21 4.0-5.20 10^6/uL Hemoglobin 10.8 L 12.2-16.2 g/dL Hematocrit 33.3 L 36.0-46.0 % Mean Corpuscular Volume 79.2 L 80.0-100.0 fL Mean Corpuscular Hemoglobin 25.7 L 28.0-32.0 pg Mean Corpuscular Hemoglobin Concent 32.5 32.0-36.0 g/dL Red Cell Distribution Width 16.0 H 11.8-14.3 % Platelet Count 309 140-450 10^3/uL Mean Platelet Volume 7.4 6.9-10.8 fL Neutrophils (%) (Auto) 61.7 37.0-80.0 % Lymphocytes (%) (Auto) 29.2 10.0-50.0 % Monocytes (%) (Auto) 5.6 0.0-12.0 % Eosinophils (%) (Auto) 3.0 0.0-7.0 % Basophils (%) (Auto) 0.5 0.0-2.0 % Neutrophils # (Auto) 5.4 1.6-8.6 10 ^3/uL Lymphocytes # (Auto) 2.5 0.4-5.4 10 ^3/uL Monocytes # (Auto) 0.5 0-1.3 10 ^3/uL Eosinophils # (Auto) 0.3 0-0.8 10 ^3/uL Basophils # (Auto) 0 0-0.2 10 ^3/uL Nucleated Red Blood Cells 0.0 % Prothrombin Time 10.6 9.3-11.8 sec Prothrombin Time INR 1.00 0.9-1.15 Activated Partial Thromboplast Time 25.9 24.5-34.5 SEC Sodium Level 141 136-145 mmol/L Potassium Level 3.6 3.5-5.1 mmol/L Chloride Level 108 H 98-107 mmol/L Carbon Dioxide Level 24 20-31 mmol/L Anion Gap 9 5-15 Blood Urea Nitrogen 36 H 9-23 mg/dL Creatinine 1.58 H 0.550-1.02 mg/dL Glomerular Filtration Rate Calc 36 >90 mL/min BUN/Creatinine Ratio 22.8 H 10.0-20.0 Serum Glucose 64 L 74-106 mg/dL Calcium Level 9.8 8.7-10.4 mg/dL Total Bilirubin 0.3 0.2-1.0 mg/dL Aspartate Amino Transferase (AST) 9 L 13-40 U/L Alanine Aminotransferase (ALT) 17 7-40 U/L Alkaline Phosphatase 138 H 46-116 U/L Total Protein 6.8 5.7-8.2 g/dL Albumin 4.5 3.2-4.8 g/dL POC Glucose 186 H 234 H 70-106 mg/dl Vitamin B12 Level 681 211-911 pg/mL Vitamin D 25-Hydroxy 50.8 30.0-100 ng/mL Folic Acid 21.73 >5.38 ng/mL Test 09/18/24 23:10 09/18/24 19:51 09/18/24 17:24 09/18/24 17:03 Range/Units Lactic Acid Level 1.2 1.4 2.7 *H 0.4-2.0 mmol/L Thyroid Stimulating Hormone (TSH) 2.18 0.55-4.78 uIU/mL White Blood Count 9.7 4.4-10.8 10^3/uL Red Blood Count 4.36 4.0-5.20 10^6/uL Hemoglobin 11.4 L 12.2-16.2 g/dL Hematocrit 34.8 L 36.0-46.0 % Mean Corpuscular Volume 79.8 L 80.0-100.0 fL Mean Corpuscular Hemoglobin 26.1 L 28.0-32.0 pg Mean Corpuscular Hemoglobin Concent 32.7 32.0-36.0 g/dL Red Cell Distribution Width 15.6 H 11.8-14.3 % Platelet Count 340 140-450 10^3/uL Mean Platelet Volume 7.4 6.9-10.8 fL Neutrophils (%) (Auto) 72.5 37.0-80.0 % Lymphocytes (%) (Auto) 19.6 10.0-50.0 % Monocytes (%) (Auto) 5.1 0.0-12.0 % Eosinophils (%) (Auto) 2.2 0.0-7.0 % Basophils (%) (Auto) 0.6 0.0-2.0 % Neutrophils # (Auto) 7.1 1.6-8.6 10 ^3/uL Lymphocytes # (Auto) 1.9 0.4-5.4 10 ^3/uL Monocytes # (Auto) 0.5 0-1.3 10 ^3/uL Eosinophils # (Auto) 0.2 0-0.8 10 ^3/uL Basophils # (Auto) 0.1 0-0.2 10 ^3/uL Nucleated Red Blood Cells 0.0 % Sodium Level 137 136-145 mmol/L Potassium Level 3.7 3.5-5.1 mmol/L Chloride Level 101 98-107 mmol/L Carbon Dioxide Level 25 20-31 mmol/L Anion Gap 11 5-15 Blood Urea Nitrogen 31 H 9-23 mg/dL Creatinine 1.85 H 0.550-1.02 mg/dL Glomerular Filtration Rate Calc 30 >90 mL/min BUN/Creatinine Ratio 16.8 10.0-20.0 Serum Glucose 249 H 74-106 mg/dL Hemoglobin A1c 8.5 H <5.7 % A1C Calcium Level 9.7 8.7-10.4 mg/dL Total Bilirubin 0.4 0.2-1.0 mg/dL Aspartate Amino Transferase (AST) 14 13-40 U/L Alanine Aminotransferase (ALT) 21 7-40 U/L Alkaline Phosphatase 143 H 46-116 U/L Total Protein 7.0 5.7-8.2 g/dL Albumin 4.5 3.2-4.8 g/dL Urine Color Colorless Yellow Urine Clarity Turbid H Clear Urine pH 6.5 5.0-9.0 Urine Specific [place] 1.008 1.001-1.035 Urine Protein Trace H Negative Urine Ketones Negative Negative Urine Blood 1+ H Negative /uL Urine Nitrite Negative Negative Urine Bilirubin Negative Negative Urine Urobilinogen Normal Negative mg/dL Urine Leukocyte Esterase 3+ Negative /uL Urine RBC 1 0 - 4 /hpf Urine Microscopic WBC 32 H 0-5 /HPF Urine Squamous Epithelial Cells Few <5 /hpf Urine Amorphous Crystals Few None Seen /hpf Urine Bacteria Few H None Seen /hpf Urine Glucose Normal Normal mg/dL Assessment Inferiorly displaced nephrostomy tube Acute complicated UTI History of nephrolithiasis Left sided hydronephrosis SULTANA on CKD stage IIIB Lactic acidosis Plan/Recommendation Agreement with your ongoing assessment and plan of care. Urology consulted. S/p adjustment of nephrostomy tube. NS bolus given. Daily lab monitoring; electrolyte replacement prn. Avoid nephrotoxic medications. IV antibiotics with Cefepime. Antiemetics with Zofran. Pain management prn. Additional plan as per the hospital course. Plan discussed with: Patient, Other (RN) DUSTIN CASTLE DO September 20, 2024 11:27
--- NOTE | 2024-09-20 11:28 | DVHPN2 ---
Progress Note - Dictate Date Seen: September 20, 2024 Has the PT tested + for MRSA If YES, has PT been informed?: No Medical Necessity Reason Pt with a Central, PICC or Fol: No Subjective Patient is seen and evaluated in follow up. No acute events overnight. Patient reports feeling better. No new complaints. Creatinine this AM is 1.76 with BUN of 32. vital signs Vital Sign Date Time Temp Pulse Resp B/P (MAP) Pulse Ox O2 Delivery O2 Flow Rate FiO2 09/20/24 10:17 133/55 09/20/24 10:09 97.8 71 20 96 09/20/24 08:00 Room Air* 0 21 Total Intake and Output 09/19/24 09/19/24 09/20/24 15:00 23:00 07:00 Intake Total 50 ml 400 ml Balance 50 ml 400 ml medications Current Medications Medications Dose Ordered Sig/Hilda Route Start Time Stop Time Status Last Admin Dose Admin Acetaminophen 325 mg Q4HP PRN PO 09/18/24 23:00 Ondansetron HCl 4 mg Q4HP PRN IV 09/18/24 23:00 Docusate Sodium 100 mg BIDPRN PRN PO 09/18/24 23:00 Amlodipine Besylate 10 mg DAILY PO 09/18/24 23:00 09/20/24 10:17 Hydralazine HCl 20 mg Q8HR PO 09/19/24 06:00 09/20/24 06:00 Pantoprazole Sodium 40 mg QAM PO 09/19/24 07:00 09/20/24 07:07 Sucralfate 1 gm TID PO 09/19/24 06:00 09/20/24 07:07 Atorvastatin Calcium 40 mg HS PO 09/19/24 22:00 09/19/24 22:23 Losartan Potassium 100 mg DAILY PO 09/19/24 10:00 09/20/24 10:16 Sertraline HCl 100 mg BID PO 09/19/24 10:00 09/20/24 10:17 Insulin Glargine 10 units HS SC 09/18/24 23:00 09/19/24 22:00 Diagnostic Test (Pha) 1 strip IQ4HR 09/19/24 00:00 09/20/24 08:15 Insulin Human Regular IQ4HR SC 09/19/24 00:00 09/20/24 08:18 Dextrose 50 ml UD PRN IV 09/18/24 23:00 Enoxaparin Sodium 40 mg DAILY SC 09/19/24 10:00 09/19/24 10:17 Cefepime HCl 50 ml @ 12.5 mls/hr Q12HR IV 09/19/24 10:00 09/20/24 10:16 Levetiracetam 1,000 mg DAILY PO 09/20/24 10:00 09/20/24 10:16 Gabapentin 100 mg BID PO 09/19/24 22:00 09/20/24 10:16 objective Vitals and nursing notes reviewed. General Appearance: Alert, Oriented X3, Cooperative, No acute distress HEENT: Atraumatic, PERRLA, EOMI, Mucous membr. moist/pink Respiratory: Clear to auscultation, Normal air movement Cardiovascular: Normal S1, Normal S2 Abdominal: Normal bowel sounds, Soft Neuro: Normal speech, Strength at 5/5 X4 ext, Sensation intact Musculoskeletal: No extremity deformity. Psych/Mental Status: Mental status NL, Mood NL Skin: Warm and dry. laboratory and microbiology Laboratory Tests 09/20/24 06:05 Test 09/20/24 06:05 Range/Units Serum Glucose 127 H 74-106 mg/dL Problem List Inferiorly displaced nephrostomy tube Acute complicated UTI History of nephrolithiasis Left sided hydronephrosis SULTANA on CKD stage IIIB Lactic acidosis Assessment/Plan DC planning in progress. Cleared for discharge from Nephrology standpoint with outpatient follow up recommended. Plan discussed with: Patient, Other (RN) DUSTIN CASTLE DO September 20, 2024 11:28
[2024-09-20 12:54] VITALS: BP 140/62; PULSE 78; RESP 20; TEMP 97.6; O2SAT 95
== END 2024-09-20 13:20 | disposition home or self-care (01) | DRG 698 ==
LOC: ER 15:54 → OVERFLOW 22:51 → CENTRAL 09-19 17:15
PROVIDERS: ADMIT Internal Medicine; ATTEND Emergency Medicine
PROC: 0T25X0Z Change Drainage Device in Kidney, External Approach (ICD-10-PCS; principal; 2024-09-19)
DX: T83.022A Displacement of nephrostomy catheter, initial encounter (principal); N17.0 Acute kidney failure with tubular necrosis; E87.20 Acidosis, unspecified; N13.6 Pyonephrosis; E11.22 Type 2 diabetes mellitus with diabetic chronic kidney disease; N18.32 Chronic kidney disease, stage 3b; F32.9 Major depressive disorder, single episode, unspecified; E78.5 Hyperlipidemia, unspecified; Y83.8 Other surgical procedures as the cause of abnormal reaction of the patient, or of later complication, without mention of misadventure at the time of the procedure; K21.9 Gastro-esophageal reflux disease without esophagitis; D50.9 Iron deficiency anemia, unspecified; F41.9 Anxiety disorder, unspecified; I12.9 Hypertensive chronic kidney disease with stage 1 through stage 4 chronic kidney disease, or unspecified chronic kidney disease; Z88.5 Allergy status to narcotic agent; Y92.89 Other specified places as the place of occurrence of the external cause; Z88.0 Allergy status to penicillin; Z79.899 Other long term (current) drug therapy; Z79.2 Long term (current) use of antibiotics; Z79.4 Long term (current) use of insulin; Z79.84 Long term (current) use of oral hypoglycemic drugs; Z90.49 Acquired absence of other specified parts of digestive tract; Z87.442 Personal history of urinary calculi; I25.2 Old myocardial infarction; Z80.0 Family history of malignant neoplasm of digestive organs; Z82.49 Family history of ischemic heart disease and other diseases of the circulatory system; Z83.3 Family history of diabetes mellitus
CPT/HCPCS: 36415; 50435; 71046; 74176; 75984; 80053; 81001; 82306; 82607; 82746; 82962; 83036; 83605; 84443; 85025; 85610; 85730; 87086; 96365; 96366; 97163; G0378; J1815; J2250

== ENCOUNTER 2025-01-07 14:10 | Inpatient (IN) | payer OTHER, MEDICAID ==
[~2025-01-07] VITALS: Ht 154.9 cm; Wt 83.5 kg
[~2025-01-07 14:10] MED LIST changes: -BACDST PO; +CEPH500C PO; -CIPR-173 PO; -FOSF3POW PO; -LEVO500T91 PO
--- NOTE | 2025-01-07 15:43 | ED.PDOC ---
General HPI Comments This is a 64 year old female presenting to the ED with chief complaint of nephrostomy problem. Patient reports that she had woken up this morning with her right nephrostomy site soaking wet and after taking a shower, she noticed leakage coming from the nephrostomy tube. Patient relays that she wrapped it in a bag to prevent leakage, but she also noted cloudy white discharge coming from the tube. Patient states she had her tube placed last January and has had to come to the ED multiple times since then to have her tube replaced or checked on. Patient denies any dysuria, hematuria, flank pain, abdominal pain, fever, or N/V. Chief Complaint: Urinary Time Seen by MD: 15:39 Primary Care Provider: BRI RUBALCAVA Reviewed notes: Nurses Notes, Medications, Allergies Allergies: Coded Allergies: Codeine (Verified Allergy, Unknown, 04/11/24) Penicillins (Verified Allergy, Unknown, 04/11/24) Home Meds Active Scripts Cephalexin Monohydrate (Cephalexin) 500 Mg Cap, 500 MG PO BID for 5 Days, #10 CAP Prov:SHAE OSUNA RESDIENT 09/20/24 Nitrofurantoin (MACRODANTIN CAPSULE) 50 Mg Cp, 1 CAP PO DAILY for 7 Days, #30 CAP 11 Refills Prov:KEKE RAMÍREZ 06/25/24 Mirtazapine (Remeron) 30 Mg Tb, 15 MG PO HS for 30 Days, #15 TAB Prov:JAYCEE LUCIANO MD 04/15/24 Hydralazine Hcl (Hydralazine Hcl) 10 Mg Tab, 20 MG PO Q8HR for 30 Days, #180 TAB Prov:JAYCEE LUCIANO MD 04/15/24 Amlodipine Besylate (NORVASC TABLET) 5 Mg Tb, 10 MG PO DAILY for 30 Days, #60 TAB Prov:JAYCEE LUCIANO MD 04/15/24 Reported Medications Insulin Glargine (Basaglar Kwikpen) 100 Unit/Ml Inj, 20 UNIT SC HS 04/11/24 Glimepiride (Glimepiride) 4 Mg Tab, 1 TAB PO BID 04/11/24 Metformin Hydrochloride (Metformin Hcl) 1,000 Mg Tab, 1 TAB PO BID 04/11/24 Losartan Potassium (Losartan Potassium) 100 Mg Tab, 1 TAB PO DAILY 04/11/24 Atorvastatin Calcium (ATORVASTATIN CALCIUM) 40 Mg Tab, 1 TAB PO HS 04/11/24 Montelukast Sodium (MONTELUKAST SODIUM) 10 Mg Tab, 1 TAB PO DAILY 04/11/24 Pantoprazole Sodium Sesquihydr (Pantoprazole Sodium) 40 Mg Tab, 1 TAB PO QAM 04/11/24 Sucralfate (Sucralfate) 1 Gm Tab, 1 TAB PO TID 04/11/24 Sertraline Hcl (Sertraline Hcl) 100 Mg Tab, 1 TAB PO BID 04/11/24 Information Source: Patient Mode of Arrival: Wheelchair Severity: Mild Inability to void: None Timing: Hours Duration: Since onset Prehospital treatment: None Onset: Spontaneous Symptoms: None History of: Kidney stone, Other (Nephrostomy tube) Past Medical History PAST MEDICAL HISTORY: Arthritis, Depression, DM, HTN, Kidney Stones, Seizures Surgical History: Cholecystectomy Surgical History (Other): Rt nephrostomy 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 MANAGER History: Denies all COMMUNITY AFFAIRS MANAGER Hx Family History Family History: Reviewed,noncontributory to illness Social History Smoker: Non-Smoker Alcohol: Denies ETOH Use Drugs: Denies Drug Use Lives In: Home Constitutional: denies: chills, diaphoresis, fatigue, fever, malaise, sweats, weakness, others EENTM: denies: blurred vision, double vision, ear bleeding, ear discharge, ear drainage, ear pain, ear ringing, eye pain, eye redness, hearing loss, mouth pain, mouth swelling, nasal discharge, nose bleeding, nose congestion, nose pain, photophobia, tearing, throat pain, throat swelling, voice changes, others Respiratory: denies: cough, hemoptysis, orthopnea, SOB at rest, shortness of breath, SOB with excertion, stridor, wheezing, others Cardiovascular: denies: chest pain, dizzy spells, diaphoresis, Dyspnea on exertion, edema, irregular heart beat, left arm pain, lightheadedness, palpitations, PND, syncope, others Gastrointestinal: denies: abdomen distended, abdominal pain, blood streaked bowels, constipated, diarrhea, dysphagia, difficulty swallowing, hematemesis, melena, nausea, poor appetite, poor fluid intake, rectal bleeding, rectal pain, vomiting, others Genitourinary: denies: abnormal vagina bleeding, burning, dyspareunia, dysuria, flank pain, frequency, hematuria, incontinence, pain, , vagina discharge, urgency, others Neurological: denies: dizziness, fainting, headache, left sided numbness, left sided weakness, numbness, paresthesia, pre-existing deficit, right sided numbness, right sided weakness, seizure, speech problems, tingling, tremors, weakness, others Musculoskeletal: denies: back pain, gout, joint pain, joint swelling, muscle pain, muscle stiffness, neck pain, others Integumetry: denies: bruises, change in color, change in hair/nails, dryness, laceration, lesions, lumps, rash, wounds, others Allergic/Immunocompromised: denies: Difficulty Healing, Frequent Infections, Hives, Itching, others Hematologic/Lymphatic: denies: anemia, blood clots, easy bleeding, easy bruising, swollen glands, others Endocrine: denies: excessive hunger, excessive sweating, excessive thirst, excessive urination, flushing, intolerance to cold, intolerance to heat, unexplained weight gain, unexplained weight loss, others Psychiatric: denies: anxiety, bipolar disorder, depression, hopeless, panic disorder, schizophrenia, sleepless, suicidal, others All Other Systems: Reviewed and Negative Physical Exam General Appearance: No Apparent Distress, Normal HEENT: Normal ENT Inspection, Pharynx Normal, TMs Normal Neck: Full Range of Motion, Non-Tender, Normal, Normal Inspection Respiratory: Chest Non-Tender, Lungs Clear, No Accessory Muscle Use, No Respiratory Distress, Normal Breath Sounds Cardiovascular: No Edema, No JVD, No Murmur, No Gallop, Normal Peripheral Pulses, Regular Rate/Rhythm Breast Exam: Deferred Gastrointestinal: No Organomegaly, Non Tender, No Pulsatile Mass, Normal Bowel Sounds, Soft, Other (Right nephrostomy tube in place.) Genitalia: Deferred Pelvic: Deferred Rectal: Deferred Extremities: No calf tenderness, Normal capillary refill, Normal inspection, Normal range of motion, Non-tender, No pedal edema Musculoskeletal : Apperance: Normal Neurologic: Alert, ironer machine II-XII nml as Tested, No Motor Deficits, Normal Affect, Normal Mood, No Sensory Deficits Cerebellar Function: Normal Reflexes: Normal Skin: Dry, Normal Color, Warm Lymphatic: No Adenopathy Was a procedure done? Was a procedure done?: No Differential Diagnosis Kidney stone (Female): Renal failure, Urinary obstruction, Urolithiasis X-Ray, Labs, Meds, VS Vital Signs Date Time Temp Pulse Resp B/P (MAP) Pulse Ox O2 Delivery O2 Flow Rate FiO2 01/07/25 14:22 92 01/07/25 14:11 97.2 97 18 157/62 98 97.2 Lab Test 01/07/25 15:30 Range/Units Urine Color Light-orange Yellow Urine Clarity Ex.turbid Clear Urine pH 6.5 5.0-9.0 Urine Specific [place] 1.019 1.001-1.035 Urine Protein 1+ H Negative Urine Ketones Negative Negative Urine Blood 1+ H Negative /uL Urine Nitrite Negative Negative Urine Bilirubin Negative Negative Urine Urobilinogen Normal Negative mg/dL Urine Leukocyte Esterase 3+ Negative /uL Urine RBC 7 0 - 4 /hpf Urine WBC Clumps Present None Seen /hpf Urine Microscopic WBC 126 H 0-5 /HPF Urine Squamous Epithelial Cells Few <5 /hpf Urine Amorphous Crystals Few None Seen /hpf Urine Bacteria Few H None Seen /hpf Urine Mucus Few None Seen Urine Glucose Trace Normal mg/dL X-Ray, Labs, Meds, VS Comment Patient will be admitted for nephrostomy tube replacement. Recommend IR consult Time of 1ST Reevaluation: 16:39 Reevaluation 1ST: Unchanged Patient Education/Counseling: Diagnosis, Treatment Family Education/Counseling: No Family Present SEPSIS Sepsis Screen Date sepsis recognized/suspect: Jan 07, 2025 Time Sepsis recognized/suspect: 1410 Recent Procedure: No On Antibiotic Therapy: No Respiratory Rate >20: No Heart Rate >90: Yes Temp<36 C (96.8 F) or >38.3 C: No SBP <90 or MAP <65 mmHG: No New Acute Mental Status Change: No Is the patient on CPAP, BIPAP,: No Physician Orders Ct Ab Pel Wo Con-No Oral Or Iv (01/07/25 15:43) Electrocardigram (01/07/25 15:32) Vital Signs Date Time Temp Pulse Resp B/P (MAP) Pulse Ox O2 Delivery O2 Flow Rate FiO2 01/07/25 14:22 92 01/07/25 14:11 97.2 97 18 157/62 98 97.2 Departure 1 Departure Time of Disposition: 16:48 Impression: Primary Impression: UTI (urinary tract infection) Qualified Codes: N30.01 - Acute cystitis with hematuria Additional Impression: Complication of nephrostomy Disposition: ADMITTED INPATIENT Condition: Stable Critical Care Note Critical Care Time?: No Stability Stability form required: No Heart Score Heart Score: Heart Score Response (Comments) Value History N/A 0 EKG N/A 0 Age N/A 0 Risk Factors N/A 0 Troponin N/A 0 Total 0 I personally scribed for JONO RESTREPO ([email or web address]) on 01/07/25 at 15:42. Electronically submitted by Aleks Mancini ([email or web address]). JONO RESTREPO Jan 07, 2025 15:42
[2025-01-07 16:27] LABS: Urine Amorphous Crystal FEW /hpf (None Seen); Urine Protein, UAD 1+ (Negative); Urine WBC Clumps PRESENT /hpf (None Seen)
--- NOTE | 2025-01-07 16:32 | DVH ---
CT CT AB PEL WO CON-NO ORAL OR IV INDICATION: catheter placement EXAM DATE: 01/07/2025 03:55 PM COMPARISON: CT CT AB PEL WO CON-NO ORAL OR IV on DOS: 09/18/24, US KIDNEY on DOS: 06/24/24, XY PERCUTANEO US NEPHROSTOMY on DOS: 06/24/24 RADIATION DOSE: CTDIvol: 15 mGy, DLP: 850 mGy*cm PROCEDURE: Helical CT images were obtained of the abdomen and pelvis without IV contrast Sagittal and coronal reconstructions are provided. ORAL CONTRAST: None. ADDITIONAL IMAGES / REFORMATS: None All C T scans at this medical facility are performed using dose modulation techniques as appropriate to a p erformed exam including the following: Automated exposure control was utilized; adjustment of the MA and/or KV according to patient size; and use of iterative reconstruction technique. FINDINGS: LUNG BASE: Normal. LIVER: Normal. GALLBLADDER AND BILIARY TREE: No calcified gallstones. Normal caliber wall. No intra- or extrahepatic biliary ductal dilation. PANCREAS: Normal. SPLEEN: Normal. BOWEL: Moderate hiatal hernia. No small bowel dilation. Normal appendix. ADRENALS: Nonspecific calcification of the right adrenal gland. KIDNEYS AND URETER: Right sided nephrostomy tube in place, with pigtail uncurled however no hydroneph rosis seen. Stable 1.1 cm right proximal ureter kidney stone. BLADDER: Normal. REPRODUCTIVE ORGANS: 2.6 cm calcified uterine fibroid. LYMPH NODES:No lymphadenopathy. PERITONEUM: No ascites or free air. No other fluid collection. VESSELS: Scattered atherosclerotic calcifications are noted. RETROPERITONEUM: Normal. ABDOMINAL WALL: Normal. BONES: Scattered osseous degenerative changes are noted. IMPRESSION: Right sided nephrostomy tube in place, with pigtail uncurled however no hydronephrosis seen. Stable 1.1 cm right proximal ureter kidney stone. Consider nephrostomy tube exchange if it has been 3 months since the last exchange for maintenance.
[2025-01-07] MEDS: DOXYCYCLINE 100MG/100ML 100 ML IV ONE (17:22)
[2025-01-07 17:23] VITALS: PULSE 99; RESP 20; O2SAT 98
[2025-01-07 20:09] LABS: Chloride 104 mmol/L (98-107); Potassium 4.4 mmol/L (3.5-5.1); Sodium 137 mmol/L (136-145)
[2025-01-07 20:10] LABS: Anion Gap 13 (5-15); Calcium 9.3 mg/dL (8.7-10.4); Carbon Dioxide 20 mmol/L (20-31)
[2025-01-07 20:14] LABS: Hemoglobin 13.1 g/dL (12.2-16.2); Nucleated Red Blood Cells % 0.1 %
[2025-01-07 20:15] LABS: BUN/Creatinine Ratio 12.1 (10.0-20.0)
[2025-01-07 20:16] LABS: Blood Urea Nitrogen 24 mg/dL (9-23); Hematocrit 40.0 % (36.0-46.0); Mean Corpuscular Hemoglobin 26.9 pg (28.0-32.0); Mean Corpuscular Volume 82.1 fL (80.0-100.0)
[2025-01-07 20:27] LABS: Glucose 444 mg/dL (74-106)
--- NOTE | 2025-01-07 22:36 | DVHHPRES ---
History of Present Illness Resident Creating Document: KEKE PALOMO RESIDENT History of Present Illness 64-year-old female with previous history of renal stone with right sided nephr ostomy tube in place, uncontrolled diabetes mellitus presents to the ER with a history of leakage of greenish fluid from the nephrostomy tube. The tube was placed in January, in [place]. The tube was supposed to be removed after 2 weeks. However, the patient denies any urinary urgency, frequency or burning sensation or hematuria. She has no chest pain, shortness o f breath, fever, abdominal pain, nausea, vomiting or any other complaints. The patient has recently underwent a colonoscopy on Sunday, results pending. Past medical history: Hypertension, diabetes mellitus, seizure disorder, arthritis Past surgical history: Cholecystectomy, frontal sinus cyst surgery, right-sided nephrostomy tube placement Home medicines: Amlodipine, losartan, sertraline, Keppra, insulin, metformin Allergies: Codeine, penicillins Smoking: Quit 3 years. Two pack years Alcohol: Never Drugs: Never PCP: Dr. Kaiser, current urologist: Dr. Sunshine Code status: Full code Review of Systems Review of Systems The patient was seen and examined at the bedside. She reports leaking of greenish fluid from right nephrostomy tube. No other complaints reported. Rest of the ROS is negative. Allergies: Coded Allergies: Codeine (Verified Allergy, Unknown, 04/11/24) Penicillins (Verified Allergy, Unknown, 04/11/24) Medications Current Medications Medications Dose Ordered Sig/Hilda Route Start Time Stop Time Status Last Admin Dose Admin Sodium Chloride 10 ml Q8HR IV 01/08/25 06:00 Sodium Chloride 1,000 ml @ 60 mls/hr [id number] IV 01/07/25 22:15 Exam Vital Signs Vital Signs Date Time Temp Pulse Resp B/P (MAP) Pulse Ox O2 Delivery O2 Flow Rate FiO2 01/07/25 20:17 98.6 88 16 142/74 (96) 97 98.6 01/07/25 17:23 Room Air* 0 21 Exam Pt is lying on bed General Appearance: Alert, Oriented X3, Cooperative, Mild distress HEENT: Atraumatic, Mucous membranes moist/pink Respiratory: Clear to auscultation, Normal air movement, No added sounds Cardiovascular: Regular rate, Normal S1, Normal S2, No murmurs Abdominal/ : Active bowel sounds, Soft, no distention, no tenderness. Right-sided nephrostomy tube with 100 mL collection. Extremities: No edema, Normal pulses, No tenderness/swelling, left great toe stiffness and reduced movement Skin: No Significant rash, except past surgical scars Neuro: Normal speech, sensorimotor deficits none Psych/Mental Status: Mental status NL, Mood NL Nurse was there as wax pattern coater during examination Labs/Xrays Labs Test 01/07/25 17:20 01/07/25 15:30 Range/Units White Blood Count 9.9 4.4-10.8 10^3/uL Red Blood Count 4.88 4.0-5.20 10^6/uL Hemoglobin 13.1 12.2-16.2 g/dL Hematocrit 40.0 36.0-46.0 % Mean Corpuscular Volume 82.1 80.0-100.0 fL Mean Corpuscular Hemoglobin 26.9 L 28.0-32.0 pg Mean Corpuscular Hemoglobin Concent 32.8 32.0-36.0 g/dL Red Cell Distribution Width 15.5 H 11.8-14.3 % Platelet Count 336 140-450 10^3/uL Mean Platelet Volume 8.1 6.9-10.8 fL Neutrophils (%) (Auto) 76.5 37.0-80.0 % Lymphocytes (%) (Auto) 15.3 10.0-50.0 % Monocytes (%) (Auto) 5.1 0.0-12.0 % Eosinophils (%) (Auto) 2.5 0.0-7.0 % Basophils (%) (Auto) 0.6 0.0-2.0 % Neutrophils # (Auto) 7.6 1.6-8.6 10 ^3/uL Lymphocytes # (Auto) 1.5 0.4-5.4 10 ^3/uL Monocytes # (Auto) 0.5 0-1.3 10 ^3/uL Eosinophils # (Auto) 0.2 0-0.8 10 ^3/uL Basophils # (Auto) 0.1 0-0.2 10 ^3/uL Nucleated Red Blood Cells 0.1 % Sodium Level 137 136-145 mmol/L Potassium Level 4.4 3.5-5.1 mmol/L Chloride Level 104 98-107 mmol/L Carbon Dioxide Level 20 20-31 mmol/L Anion Gap 13 5-15 Blood Urea Nitrogen 24 H 9-23 mg/dL Creatinine 1.99 H 0.550-1.02 mg/dL Glomerular Filtration Rate Calc 28 >90 mL/min BUN/Creatinine Ratio 12.1 10.0-20.0 Serum Glucose 444 *H 74-106 mg/dL Calcium Level 9.3 8.7-10.4 mg/dL Urine Color Light-orange Yellow Urine Clarity Ex.turbid Clear Urine pH 6.5 5.0-9.0 Urine Specific [place] 1.019 1.001-1.035 Urine Protein 1+ H Negative Urine Ketones Negative Negative Urine Blood 1+ H Negative /uL Urine Nitrite Negative Negative Urine Bilirubin Negative Negative Urine Urobilinogen Normal Negative mg/dL Urine Leukocyte Esterase 3+ Negative /uL Urine RBC 7 0 - 4 /hpf Urine WBC Clumps Present None Seen /hpf Urine Microscopic WBC 126 H 0-5 /HPF Urine Squamous Epithelial Cells Few <5 /hpf Urine Amorphous Crystals Few None Seen /hpf Urine Bacteria Few H None Seen /hpf Urine Mucus Few None Seen Urine Glucose Trace Normal mg/dL SEPSIS Sepsis Screen Date sepsis recognized/suspect: Jan 07, 2025 Time Sepsis recognized/suspect: 1410 Recent Procedure: No On Antibiotic Therapy: No Respiratory Rate >20: No Heart Rate >90: Yes Temp<36 C (96.8 F) or >38.3 C: No SBP <90 or MAP <65 mmHG: No New Acute Mental Status Change: No Is the patient on CPAP, BIPAP,: No Physician Orders Ct Ab Pel Wo Con-No Oral Or Iv (01/07/25 15:43) Electrocardigram (01/07/25 15:32) Admit (01/07/25 22:06) Allergies (01/07/25 22:06) Code Status (01/07/25 22:06) Renal Standard(2gna,3gk,Lopho) (01/08/25 Breakfast) Sodium Chloride Lock (Saline Lock Ns) (01/08/25 06:00) Sodium Chloride 0.9% (01/07/25 22:15) Oxygen Per Hour (01/07/25 22:06) Complete Blood Count (01/08/25 04:00) Comprehensive Metabolic Panel (01/08/25 04:00) Notify Of Changes From Base (01/07/25 22:06) Vital Signs Date Time Temp Pulse Resp B/P (MAP) Pulse Ox O2 Delivery O2 Flow Rate FiO2 01/07/25 20:17 98.6 88 16 142/74 (96) 97 98.6 01/07/25 17:23 99 20 98 Room Air* 0 21 01/07/25 16:51 98.3 84 18 131/68 (89) 98 98.3 Laboratory Tests Test 01/07/25 17:20 White Blood Count 9.9 10^3/uL (4.4-10.8) Medications Medications Dose Ordered Sig/Hilda Route Start Time Stop Time Status Last Admin Dose Admin Doxycycline Hyclate 100 ml @ 50 mls/hr ONCE ONCE IV 01/07/25 17:00 01/07/25 18:59 DC 01/07/25 17:22 50 MLS/HR Assessment/Plan Assessment/Plan Right nephrostomy tube fluid leaking SULTANA likely due to VMN -urology consulted -IV fluids -monitor labs Uncontrolled diabetes mellitus: -Insulin Lantus 15 units given -Mild insulin sliding scale -insulin dosage adjustment if necessary, due to compromised renal function in the setting of SULTANA Seizure disorder Continue home medication Keppra 1000 mg b.i.d. Hypertension Amlodipine besylate 5 mg daily Hold Losartan potassium 100 mg 1 tablet p.o. daily due to Cr 1.99 GI prophylaxis: Pantoprazole DVT prophylaxis: SCDs Diet: Renal Goals of care discussed with the patient for more than 27 minutes: Full code status Case discussed with Dr. Johnson , patient and RN Plan discussed with: Patient, Other (RN) My Orders Orders - KEKE PALOMO RESIDENT Procedure Category Date Status Time Admit ADMIT 01/07/25 Transmitted 22:06 Allergies VALENTE 01/07/25 In Process 22:06 Code Status CODE 01/07/25 Transmitted 22:06 Renal DIET 01/08/25 Transmitted Standard(2gna,3gk,Lopho) Breakfast Sodium Chloride Lock PHA 01/08/25 In Process (Saline Lock Ns) 06:00 Sodium Chloride 0.9% PHA 01/07/25 In Process 22:15 Oxygen Per Hour RT 01/07/25 Transmitted 22:06 Complete Blood Count LAB 01/08/25 Verified 04:00 Comprehensive LAB 01/08/25 Verified Metabolic Panel 04:00 Notify Of Changes VALENTE 01/07/25 In Process From Base 22:06 Date of Service: Jan 07, 2025 Billing Provider: LAYLA JOHNSON MD Common Visit Codes: 52381-[id number] INP/OBS CARE (HIGH) Secondary Visit Codes: 58741-VFWIGHRB CARE PLAN 30 MINUTES KEKE PALOMO RESIDENT Jan 07, 2025 22:36
[2025-01-07] MEDS: SODIUM CHLORIDE 0.9% 1,000 ML IV SCH (23:04)
[2025-01-07] MEDS: INSULIN LANTUS (GLARGINE) 1 /0.01ml (100units/ml) SC ONE (23:30)
[2025-01-08] VITALS (12 sets, daily range): BP systolic 126–154; BP diastolic 67–81; PULSE 66–87; RESP 11–20; TEMP 97.1–98; O2SAT 95–100
[2025-01-08] MEDS: ACCU-CHEK COMFORT CURVE STRIP VI ONE (00:08)
[2025-01-08] MEDS: DEXTROSE (50%) 50ML SYRG IV ONE (00:09)
[2025-01-08] MEDS: InsuLIN REG 1unit/0.01ml Soln (100units/ml) SC ONE (00:21)
[2025-01-08] MEDS: cefTRIAXone 1GM/50ML D5W 50 ML IV ONE (02:49)
[2025-01-08] MEDS: SODIUM CHLOR 0.9% PF (SALINE LOCK) 10ML VIAL/SYR IV SCH (06:42)
[2025-01-08 07:21] LABS: Alanine Aminotransferase 11 U/L (7-40); Albumin 4.2 g/dL (3.2-4.8); Anion Gap 11 (5-15); BUN/Creatinine Ratio 18.8 (10.0-20.0); Bilirubin, Total 0.5 mg/dL (0.2-1.0); Calcium 9.3 mg/dL (8.7-10.4); Carbon Dioxide 23 mmol/L (20-31); Potassium 3.7 mmol/L (3.5-5.1); Sodium 143 mmol/L (136-145); Total Protein 6.6 g/dL (5.7-8.2)
[2025-01-08 07:24] LABS: Alkaline Phosphatase 128 U/L (46-116); Blood Urea Nitrogen 32 mg/dL (9-23); Chloride 109 mmol/L (98-107); Glucose 56 mg/dL (74-106); Hematocrit 36.5 % (36.0-46.0); Hemoglobin 11.8 g/dL (12.2-16.2); Mean Corpuscular Hemoglobin 25.8 pg (28.0-32.0); Mean Corpuscular Volume 79.6 fL (80.0-100.0); Nucleated Red Blood Cells % 0.1 %
--- NOTE | 2025-01-08 08:20 | DVH ---
CLINICAL INFORMATION: Nephrostomy tube. TECHNIQUE: Grayscale sonographic imaging of the kidneys and bladder was performed, assisted by color Doppler technique. COMPARISON: US KIDNEY on DOS: 06/24/24, XY PERCUTANEOUS NEPHROSTOMY on DOS: 06/24/24, XY PERCUTANEOUS NEP HROSTOMY on DOS: 05/13/24 FINDINGS: The right kidney measures 7.6 cm in length. Mild hydronephrosis with mild prominence of t he right renal pelvis. Right nephrostomy tube in place. Unremarkable cortical thickness and echogenic ity. The left kidney measures 9.9 cm in length. Mild left hydronephrosis with slight prominence of the le ft renal pelvis. Unremarkable cortical thickness and echogenicity. Prevoid bladder volume measured 270 mL. No bladder wall thickening or mass visualized. Right ureteral jet visualized. IMPRESSION: 1. Mild bilateral hydronephrosis with right nephrostomy tube in place. 2. Unremarkable sonographic appearance of the bladder.
--- NOTE | 2025-01-08 09:19 | DVHINCON2 ---
Date of service: Jan 08, 2025 Referring Physician Hospitalist Reason for Consultation malfunctioning nephrostomy History of Present Illness History Source: Patient, RN Notes, MD Notes, Old Records Exam Limitations: No limitations HPI 64 yo female known to urology service for right renal stone and PCN in situ. PCN last exchanged 09/2024 by IR. Last office visit 10/10/24 auth for right ESWL was obtained and is pending scheduling. Home Meds Active Scripts Cephalexin Monohydrate (Cephalexin) 500 Mg Cap, 500 MG PO BID for 5 Days, #10 CAP Prov:SHAE OSUNA RESDIENT 09/20/24 Nitrofurantoin (MACRODANTIN CAPSULE) 50 Mg Cp, 1 CAP PO DAILY for 7 Days, #30 CAP 11 Refills Prov:KEKE RAMÍREZ 06/25/24 Mirtazapine (Remeron) 30 Mg Tb, 15 MG PO HS for 30 Days, #15 TAB Prov:JAYCEE LUCIANO MD 04/15/24 Hydralazine Hcl (Hydralazine Hcl) 10 Mg Tab, 20 MG PO Q8HR for 30 Days, #180 TAB Prov:JAYCEE LUCIANO MD 04/15/24 Amlodipine Besylate (NORVASC TABLET) 5 Mg Tb, 10 MG PO DAILY for 30 Days, #60 TAB Prov:JAYCEE LUCIANO MD 04/15/24 Reported Medications Insulin Glargine (Basaglar Kwikpen) 100 Unit/Ml Inj, 20 UNIT SC HS 04/11/24 Glimepiride (Glimepiride) 4 Mg Tab, 1 TAB PO BID 04/11/24 Metformin Hydrochloride (Metformin Hcl) 1,000 Mg Tab, 1 TAB PO BID 04/11/24 Losartan Potassium (Losartan Potassium) 100 Mg Tab, 1 TAB PO DAILY 04/11/24 Atorvastatin Calcium (ATORVASTATIN CALCIUM) 40 Mg Tab, 1 TAB PO HS 04/11/24 Montelukast Sodium (MONTELUKAST SODIUM) 10 Mg Tab, 1 TAB PO DAILY 04/11/24 Pantoprazole Sodium Sesquihydr (Pantoprazole Sodium) 40 Mg Tab, 1 TAB PO QAM 04/11/24 Sucralfate (Sucralfate) 1 Gm Tab, 1 TAB PO TID 04/11/24 Sertraline Hcl (Sertraline Hcl) 100 Mg Tab, 1 TAB PO BID 04/11/24 Past Medical History Renal/: UTI, CKD Patient Family History: Diabetes mellitus G8 MOTHER, FH: diabetes mellitus FH: heart attack FH: liver cancer FH: pancreatic cancer Other blood disorders G8 MOTHER, Pancreatic cancer Review of Systems Genitourinary: Pain, Other (leaking nephrostomy) H&P Exam Vital Signs Vital Signs Date Time Temp Pulse Resp B/P (MAP) Pulse Ox O2 Delivery O2 Flow Rate FiO2 01/08/25 06:49 186/75 01/08/25 05:00 97.1 84 17 95 97.1 01/08/25 03:18 Room Air* 0 21 General Appeara: Well developed, Well nourished, Normal Appearance Neuro/Mental St: Alert, Oriented Appearance: Appropriate appearance, Appropriate insight Eye contact/ Speech: Cooperative, Good eye contact, Normal speech Skin Exam: Normal inspection, Normal color, Warm/dry Labs/Xrays [place] [id number] Ph: [phone] DIAGNOSTIC IMAGING Diagnostic Imaging Report : [id number] Signed PATIENT: LOUIS DE GUZMAN ACCT: [id number] UNIT: [id number] : 1960 LOC: ER ROOM / BED: / AGE / SEX: 64 / F ADM STATUS: REG ER SERVICE [id number] ORDERING PHYSICIAN: JONO RESTREPO PROCEDURE(s): ABPL - CT AB PEL WO CON-NO ORAL OR IV REASON: catheter placement ORDER NUMBER(s): [id number], ACCESSION NUMBER(s): [id number] CT CT AB PEL WO CON-NO ORAL OR IV INDICATION: catheter placement EXAM DATE: 01/07/2025 03:55 PM COMPARISON: CT CT AB PEL WO CON-NO ORAL OR IV on DOS: 09/18/24, US KIDNEY on DOS: 06/24/24, XY PERCUTANEOUS NEPHROSTOMY on DOS: 06/24/24 RADIATION DOSE: CTDIvol: 15 mGy, DLP: 850 mGy*cm PROCEDURE: Helical CT images were obtained of the abdomen and pelvis without IV contrast Sagittal and coronal reconstructions are provided. ORAL CONTRAST: None. ADDITIONAL IMAGES / REFORMATS: None All CT scans at this medical facility are performed using dose modulation techniques as appropriate to a performed exam including the following: Automated exposure control was utilized; adjustment of the MA and/or KV according to patient size; and use of iterative reconstruction technique. FINDINGS: LUNG BASE: Normal. LIVER: Normal. GALLBLADDER AND BILIARY TREE: No calcified gallstones. Normal caliber wall. No intra- or extrahepatic biliary ductal dilation. PANCREAS: Normal. SPLEEN: Normal. BOWEL: Moderate hiatal hernia. No small bowel dilation. Normal appendix. ADRENALS: Nonspecific calcification of the right adrenal gland. KIDNEYS AND URETER: Right sided nephrostomy tube in place, with pigtail uncurled however no hydronephrosis seen. Stable 1.1 cm right proximal ureter kidney stone. BLADDER: Normal. REPRODUCTIVE ORGANS: 2.6 cm calcified uterine fibroid. LYMPH NODES:No lymphadenopathy. PERITONEUM: No ascites or free air. No other fluid collection. VESSELS: Scattered atherosclerotic calcifications are noted. RETROPERITONEUM: Normal. ABDOMINAL WALL: Normal. BONES: Scattered osseous degenerative changes are noted. IMPRESSION: Right sided nephrostomy tube in place, with pigtail uncurled however no hydronephrosis seen. Stable 1.1 cm right proximal ureter kidney stone. Consider nephrostomy tube exchange if it has been 3 months since the last exchange for maintenance. ATED BY: BRENT EVERETT MD DICTATED DATE/TIME: 01/07/25 1630 SIGNED BY: BRENT EVERETT MD SIGNED DATE/TIME: 01/07/25 1630 CC: Labs Test 01/08/25 06:16 01/07/25 23:59 01/07/25 15:30 Range/Units White Blood Count 8.0 4.4-10.8 10^3/uL Red Blood Count 4.59 4.0-5.20 10^6/uL Hemoglobin 11.8 L 12.2-16.2 g/dL Hematocrit 36.5 36.0-46.0 % Mean Corpuscular Volume 79.6 L 80.0-100.0 fL Mean Corpuscular Hemoglobin 25.8 L 28.0-32.0 pg Mean Corpuscular Hemoglobin Concent 32.4 32.0-36.0 g/dL Red Cell Distribution Width 16.0 H 11.8-14.3 % Platelet Count 284 140-450 10^3/uL Mean Platelet Volume 7.5 6.9-10.8 fL Neutrophils (%) (Auto) 59.9 37.0-80.0 % Lymphocytes (%) (Auto) 28.4 10.0-50.0 % Monocytes (%) (Auto) 7.4 0.0-12.0 % Eosinophils (%) (Auto) 3.8 0.0-7.0 % Basophils (%) (Auto) 0.5 0.0-2.0 % Neutrophils # (Auto) 4.8 1.6-8.6 10 ^3/uL Lymphocytes # (Auto) 2.3 0.4-5.4 10 ^3/uL Monocytes # (Auto) 0.6 0-1.3 10 ^3/uL Eosinophils # (Auto) 0.3 0-0.8 10 ^3/uL Basophils # (Auto) 0 0-0.2 10 ^3/uL Nucleated Red Blood Cells 0.1 % Sodium Level 143 # 136-145 mmol/L Potassium Level 3.7 3.5-5.1 mmol/L Chloride Level 109 H 98-107 mmol/L Carbon Dioxide Level 23 20-31 mmol/L Anion Gap 11 5-15 Blood Urea Nitrogen 32 H 9-23 mg/dL Creatinine 1.70 H 0.550-1.02 mg/dL Glomerular Filtration Rate Calc 33 >90 mL/min BUN/Creatinine Ratio 18.8 10.0-20.0 Serum Glucose 56 L 74-106 mg/dL Hemoglobin A1c 11.6 H <5.7 % A1C Calcium Level 9.3 8.7-10.4 mg/dL Total Bilirubin 0.5 0.2-1.0 mg/dL Aspartate Amino Transferase (AST) 13 13-40 U/L Alanine Aminotransferase (ALT) 11 7-40 U/L Alkaline Phosphatase 128 H 46-116 U/L Total Protein 6.6 5.7-8.2 g/dL Albumin 4.2 3.2-4.8 g/dL POC Glucose 378 H 70-106 mg/dl Urine Color Light-orange Yellow Urine Clarity Ex.turbid Clear Urine pH 6.5 5.0-9.0 Urine Specific [place] 1.019 1.001-1.035 Urine Protein 1+ H Negative Urine Ketones Negative Negative Urine Blood 1+ H Negative /uL Urine Nitrite Negative Negative Urine Bilirubin Negative Negative Urine Urobilinogen Normal Negative mg/dL Urine Leukocyte Esterase 3+ Negative /uL Urine RBC 7 0 - 4 /hpf Urine WBC Clumps Present None Seen /hpf Urine Microscopic WBC 126 H 0-5 /HPF Urine Squamous Epithelial Cells Few <5 /hpf Urine Amorphous Crystals Few None Seen /hpf Urine Bacteria Few H None Seen /hpf Urine Mucus Few None Seen Urine Glucose Trace Normal mg/dL Assessment/Plan Problem List: (1) Calculus of kidney (2) Foreign body in genitourinary tract, part unspecified, initial encounter (3) Displacement of nephrostomy tube Plan right PCN to be exchanged via IR service right ESWL to be arranged Plan discussed with: Patient, Other SASHA ROBLES NP Jan 08, 2025 09:19
[2025-01-08 11:37] LABS: INR 0.98 (0.9-1.15); Prothrombin Time 10.4 sec (9.3-11.8)
--- NOTE | 2025-01-08 13:55 | ECG ---
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
[2025-01-08] MEDS: fentaNYL CITRATE 100 MCG/2 ML VL ONE (17:18)
[2025-01-08] MEDS: IODIXANOL 320MG/ML 100ML BTL IV ONE (17:18)
[2025-01-08] MEDS: LIDOCAINE 2%HCL (LOCAL ANESTH.) INJ 20ML MDV ONE (17:19)
[2025-01-08] MEDS ORDERED: DEXTROSE (50%) 50ML SYRG IV PRN (19:15)
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
[2025-01-08] MEDS: levETIRAcetam 500 MG TAB PO ONE (20:57)
[2025-01-08] MEDS: SERTRALINE HCL 50 MG TAB PO SCH (20:57)
[2025-01-08] MEDS: cefTRIAXone 1GM/50ML D5W 50 ML IV SCH (21:00)
[2025-01-08] MEDS: ATORVASTATIN 20 MG TAB PO SCH (21:17)
[2025-01-08] MEDS: SUCRALFATE 1 GM TAB PO SCH (21:18)
[2025-01-09] VITALS (8 sets, daily range): BP systolic 135–160; BP diastolic 60–83; PULSE 67–88; RESP 12–19; TEMP 97.7–98; O2SAT 96–100
[2025-01-09] MEDS: ACCU-CHEK COMFORT CURVE STRIP VI SCH (00:18)
[2025-01-09] MEDS: InsuLIN REG 1unit/0.01ml Soln (100units/ml) SC SCH (00:29)
[2025-01-09] MEDS ORDERED: PANTOPRAZOLE 40 MG TAB PO SCH (07:00)
[2025-01-09 08:28] LABS: Hemoglobin 11.1 g/dL (12.2-16.2)
[2025-01-09 08:31] LABS: Hematocrit 34.2 % (36.0-46.0); Mean Corpuscular Hemoglobin 26.1 pg (28.0-32.0); Mean Corpuscular Volume 80.2 fL (80.0-100.0); Nucleated Red Blood Cells % 0.0 %
[2025-01-09 08:38] LABS: Anion Gap 11 (5-15); Carbon Dioxide 21 mmol/L (20-31); Potassium 4.1 mmol/L (3.5-5.1); Sodium 142 mmol/L (136-145)
[2025-01-09 08:39] LABS: Calcium 9.0 mg/dL (8.7-10.4)
[2025-01-09 08:44] LABS: BUN/Creatinine Ratio 16.3 (10.0-20.0); Blood Urea Nitrogen 24 mg/dL (9-23); Chloride 110 mmol/L (98-107); Glucose 144 mg/dL (74-106)
--- NOTE | 2025-01-09 09:52 | DVH ---
PROCEDURE: Genitourinary catheter exchange Procedural Personnel Attending physician(s): Jeffry Main Fellow physician(s): None Resident physician(s): None Advanced practice provider(s): None Pre-procedure diagnosis: Ureterolithiasis Post-procedure diagnosis: Same Indication: Catheter malfunction Additional clinical history: None Complications: No immediate complications. IMPRESSION: Routine exchange of R PCN for new 8.5 [place]. Plan: Routine exchange in 2-3 months if urinary diversion still necessary. PROCEDURE SUMMARY - Target organ: Unilateral [place] kidney - Antegrade nephrostogram(s) via the existing access - Nephrostomy tube exchange - Additional procedure(s): None PROCEDURE DETAILS: Pre-procedure Consent: Informed consent for the procedure including risks, benefits and alternatives was obtained a nd time-out was performed prior to the procedure. Preparation: The site was prepared and draped using maximal sterile barrier technique including cutan eous antisepsis. Anesthesia/sedation Level of anesthesia/sedation: No sedation Anesthesia/sedation administered by: Not applicable Total intra-service sedation time (minutes): 0 Genitourinary catheter exchange Side:Right [place] Local anesthesia was administered. Initial nephrostogram was performed. A wire was placed through the existing tube and it was removed. The new tube was advanced over the wire and position was confirmed with contrast injection. Pre-existing genitourinary catheter: 8.5 [place] MPD Genitourinary catheter(s) placed: 8.5 [place] MPD Findings: Appropriate position of retention loop in renal pelvis External catheter securement: Non-absorbable suture and adhesive anchoring device Additional genitourinary system intervention Side:Not applicable Genitourinary intervention: None Location of intervention: Not applicable Device used: Not applicable Description of intervention: Not applicable Post-intervention findings: Not applicable Contrast Contrast agent: Visipaque 320 Contrast volume (mL): 10 Radiation Dose Fluoroscopy time (seconds): 7 Reference air kerma (mGy): 0.1 Kerma area product (Gy-cm2): 0.08 Additional Details Additional description of procedure: None Registry event: V/3/f Device used: Not applicable Equipment details: None Specimens removed: None. A sample was not sent for analysis. Estimated blood loss (mL): Less than 10 Standardized report: [id number] Attestation Signer name: Jeffry Main I attest that I was present for the entire procedure. I reviewed the stored images and agree with the report as written.
[2025-01-09] MEDS: MONTELUKAST SODIUM 10 MG TAB PO SCH (10:00)
[2025-01-09] MEDS: PANTOPRAZOLE 40 MG/10 ML VIAL INJ IV SCH (10:32)
[2025-01-09] MEDS: levETIRAcetam 500 MG TAB PO SCH (10:32)
[2025-01-09] MEDS ORDERED: GABA-1308 PO (10:35)
--- NOTE | 2025-01-09 13:44 | DVH ---
CLINICAL HISTORY: PT IS HAVING SURGERY TECHNIQUE: Single view of the chest was obtained. COMPARISON: XY CHEST TWO VIEWS ROUTINE on DOS: 09/18/24 FINDINGS: The heart size and pulmonary vasculature are normal. The lungs are clear. IMPRESSION: NO ACUTE CARDIOPULMONARY PROCESS.
--- NOTE | 2025-01-09 14:19 | DVHPN2 ---
Progress Note - Dictate Date Seen: Jan 09, 2025 Medical Necessity Reason Pt with a Central, PICC or Fol: No Medical Necessity Reason Patient has chronic PNT for obstructive uropathy Subjective Patient states that she was diagnosed with myocardial infarction in January 2024. She has not undergone any extensive evaluation by Cardiology subsequently. Cardiac clearance is needed for her surgery today. Surgery was canceled at the recommendation of anesthesia. vital signs Vital Sign Date Time Temp Pulse Resp B/P (MAP) Pulse Ox O2 Delivery O2 Flow Rate FiO2 01/09/25 13:00 98.0 75 19 160/60 (93) 98 98.0 01/09/25 08:00 Room Air* 0 21 Total Intake and Output 01/08/25 01/08/25 01/09/25 15:00 23:00 07:00 Intake Total 300 ml 500 ml Balance 300 ml 500 ml medications Current Medications Medications Dose Ordered Sig/Hilda Route Start Time Stop Time Status Last Admin Dose Admin Sodium Chloride 10 ml Q8HR IV 01/08/25 06:00 01/09/25 12:03 10 ML Sodium Chloride 1,000 ml @ 60 mls/hr [id number] IV 01/07/25 22:15 01/08/25 02:50 60 MLS/HR Ceftriaxone Sodium 50 ml @ 100 mls/hr DAILY@2100 IV 01/08/25 21:00 01/08/25 21:00 100 MLS/HR Amlodipine Besylate 5 mg DAILY PO 01/08/25 10:00 01/09/25 11:57 5 MG Hydralazine HCl 20 mg Q8HR PO 01/08/25 22:00 01/09/25 06:45 20 MG Montelukast Sodium 10 mg DAILY PO 01/09/25 10:00 Sucralfate 1 gm TID PO 01/08/25 22:00 01/09/25 06:42 1 GM Diagnostic Test (Pha) 1 strip Q6HR 01/09/25 00:00 01/09/25 12:03 1 STRIP Insulin Human Regular Q6HR SC 01/09/25 00:00 01/09/25 00:29 8 UNITS Dextrose 50 ml UD PRN IV 01/08/25 19:15 Pantoprazole Sodium 40 mg DAILY IV 01/09/25 10:00 01/09/25 10:32 40 MG Atorvastatin Calcium 40 mg HS PO 01/08/25 22:00 01/08/25 21:17 40 MG Sertraline HCl 100 mg DAILY PO 01/08/25 19:30 01/08/25 20:57 100 MG Levetiracetam 1,000 mg DAILY PO 01/09/25 10:00 01/09/25 10:32 1,000 MG objective Right percutaneous nephrostomy tube was leaking and was changed yesterday by Interventional Radiology laboratory and microbiology Laboratory Tests 01/09/25 07:55 Test 01/09/25 07:55 Range/Units Serum Glucose 144 H 74-106 mg/dL Assessment/Plan Stable 1.1 cm right proximal ureteral calculus Right percutaneous nephrostomy tube in Situ Per anesthesia, we will need cardiac clearance for her surgery Dietary Evaluation Review Comments: Nutrition Recommendation: 1) [facility] 2gm Na diet as medically feasible 2) Refer [employer] Lathe Operator for diabetes education 3) Monitor NPO status, lab values, weight trend, and I/O Expected Outcomes/Goals: To meet >75% estimated needs Fu 2-3 days Plan discussed with: Patient, Other JOSE M GREGORY MD Jan 09, 2025 14:19
--- NOTE | 2025-01-09 14:40 | DVHPN2 ---
Progress Note - Dictate Medical Necessity Reason Pt with a Central, PICC or Fol: Yes Reason for lemus catheter: Bladder Retention/Obstruc Subjective PT WITH OBSTRUCTIVE RENAL STONE IN SITU RIGHT NEPHROSTOMY TUBE NO INFECTED PMH ; ORG HD HX OF CHEST PAIN SEIZURE DISORDER DIABETES NEHROPATHY NEUROPATHY VASCULOPATHY HTN CATRACHITA vital signs Vital Sign Date Time Temp Pulse Resp B/P (MAP) Pulse Ox O2 Delivery O2 Flow Rate FiO2 01/09/25 13:00 98.0 75 19 160/60 (93) 98 98.0 01/09/25 08:00 Room Air* 0 21 Total Intake and Output 01/08/25 01/08/25 01/09/25 15:00 23:00 07:00 Intake Total 300 ml 500 ml Balance 300 ml 500 ml medications Current Medications Medications Dose Ordered Sig/Hilda Route Start Time Stop Time Status Last Admin Dose Admin Sodium Chloride 10 ml Q8HR IV 01/08/25 06:00 01/09/25 12:03 10 ML Sodium Chloride 1,000 ml @ 60 mls/hr [id number] IV 01/07/25 22:15 01/08/25 02:50 60 MLS/HR Ceftriaxone Sodium 50 ml @ 100 mls/hr DAILY@2100 IV 01/08/25 21:00 01/08/25 21:00 100 MLS/HR Amlodipine Besylate 5 mg DAILY PO 01/08/25 10:00 01/09/25 11:57 5 MG Hydralazine HCl 20 mg Q8HR PO 01/08/25 22:00 01/09/25 06:45 20 MG Montelukast Sodium 10 mg DAILY PO 01/09/25 10:00 Sucralfate 1 gm TID PO 01/08/25 22:00 01/09/25 06:42 1 GM Diagnostic Test (Pha) 1 strip Q6HR 01/09/25 00:00 01/09/25 12:03 1 STRIP Insulin Human Regular Q6HR SC 01/09/25 00:00 01/09/25 00:29 8 UNITS Dextrose 50 ml UD PRN IV 01/08/25 19:15 Pantoprazole Sodium 40 mg DAILY IV 01/09/25 10:00 01/09/25 10:32 40 MG Atorvastatin Calcium 40 mg HS PO 01/08/25 22:00 01/08/25 21:17 40 MG Sertraline HCl 100 mg DAILY PO 01/08/25 19:30 01/08/25 20:57 100 MG Levetiracetam 1,000 mg DAILY PO 01/09/25 10:00 01/09/25 10:32 1,000 MG laboratory and microbiology Laboratory Tests 01/09/25 07:55 Test 01/09/25 07:55 Range/Units Serum Glucose 144 H 74-106 mg/dL Problem List OBSTRUCTIVE RENAL STONE IN SITU RIGHT NEPHROSTOMY TUBE NO INFECTED PMH ; ORG HD HX OF CHEST PAIN NOT CA SEIZURE DISORDER DIABETES NEHROPATHY NEUROPATHY VASCULOPATHY HTN CATRACHITA Assessment/Plan ECHO 10/12 EF >55% STRESS CARDIOLITE NL PERFUSION PT MAY PROCEED WITH SURGERY Dietary Evaluation Review Comments: Nutrition Recommendation: 1) Advance to [facility] 60gm + 2gm Na diet as medically feasible 2) Refer Regional Medical Director for diabetes education 3) Monitor NPO status, lab values, weight trend, and I/O Expected Outcomes/Goals: To meet >75% estimated needs Fu 2-3 days Plan discussed with: Patient, Spouse MARVIN GRAY MD Jan 09, 2025 14:40
--- NOTE | 2025-01-09 14:40 | DVHPN2 ---
Progress Note - Dictate Date Seen: Jan 08, 2025 Medical Necessity Reason Pt with a Central, PICC or Fol: Yes Reason for lemus catheter: Bladder Retention/Obstruc Subjective PT WITH OBSTRUCTIVE RENAL STONE IN SITU RIGHT NEPHROSTOMY TUBE NO INFECTED PMH ; ORG HD HX OF CHEST PAIN SEIZURE DISORDER DIABETES NEHROPATHY NEUROPATHY VASCULOPATHY HTN CATRACHITA vital signs Vital Sign Date Time Temp Pulse Resp B/P (MAP) Pulse Ox O2 Delivery O2 Flow Rate FiO2 01/09/25 13:00 98.0 75 19 160/60 (93) 98 98.0 01/09/25 08:00 Room Air* 0 21 Total Intake and Output 01/08/25 01/08/25 01/09/25 15:00 23:00 07:00 Intake Total 300 ml 500 ml Balance 300 ml 500 ml medications Current Medications Medications Dose Ordered Sig/Hilda Route Start Time Stop Time Status Last Admin Dose Admin Sodium Chloride 10 ml Q8HR IV 01/08/25 06:00 01/09/25 12:03 10 ML Sodium Chloride 1,000 ml @ 60 mls/hr [id number] IV 01/07/25 22:15 01/08/25 02:50 60 MLS/HR Ceftriaxone Sodium 50 ml @ 100 mls/hr DAILY@2100 IV 01/08/25 21:00 01/08/25 21:00 100 MLS/HR Amlodipine Besylate 5 mg DAILY PO 01/08/25 10:00 01/09/25 11:57 5 MG Hydralazine HCl 20 mg Q8HR PO 01/08/25 22:00 01/09/25 06:45 20 MG Montelukast Sodium 10 mg DAILY PO 01/09/25 10:00 Sucralfate 1 gm TID PO 01/08/25 22:00 01/09/25 06:42 1 GM Diagnostic Test (Pha) 1 strip Q6HR 01/09/25 00:00 01/09/25 12:03 1 STRIP Insulin Human Regular Q6HR SC 01/09/25 00:00 01/09/25 00:29 8 UNITS Dextrose 50 ml UD PRN IV 01/08/25 19:15 Pantoprazole Sodium 40 mg DAILY IV 01/09/25 10:00 01/09/25 10:32 40 MG Atorvastatin Calcium 40 mg HS PO 01/08/25 22:00 01/08/25 21:17 40 MG Sertraline HCl 100 mg DAILY PO 01/08/25 19:30 01/08/25 20:57 100 MG Levetiracetam 1,000 mg DAILY PO 01/09/25 10:00 01/09/25 10:32 1,000 MG laboratory and microbiology Laboratory Tests 01/09/25 07:55 Test 01/09/25 07:55 Range/Units Serum Glucose 144 H 74-106 mg/dL Problem List OBSTRUCTIVE RENAL STONE IN SITU RIGHT NEPHROSTOMY TUBE NO INFECTED PMH ; ORG HD HX OF CHEST PAIN NOT VA SEIZURE DISORDER DIABETES NEHROPATHY NEUROPATHY VASCULOPATHY HTN CATRACHITA Assessment/Plan ECHO 10/12 EF >55% STRESS CARDIOLITE NL PERFUSION PT MAY PROCEED WITH SURGERY Dietary Evaluation Review Comments: Nutrition Recommendation: 1) Advance to [facility] 60gm + 2gm Na diet as medically feasible 2) Refer Validation Architect for diabetes education 3) Monitor NPO status, lab values, weight trend, and I/O Expected Outcomes/Goals: To meet >75% estimated needs Fu 2-3 days Plan discussed with: Patient, Spouse MARVIN GRAY MD Jan 09, 2025 14:40
[2025-01-09] MEDS ORDERED: CIPROFLOXACIN 400MG/200ML 200 ML IV ONE (15:09)
[2025-01-09] MEDS ORDERED: MIDAZOLAM HCL 2MG/2ML 2ml VIAL (1mg/ml) ONE (15:37)
[2025-01-09] MEDS ORDERED: fentaNYL CITRATE 100 MCG/2 ML VL ONE (15:37)
[2025-01-09] MEDS ORDERED: TETRACAINE 1% INJ 2 ML VIAL IJ ONE (15:38)
[2025-01-09] MEDS: CIPROFLOXACIN 400MG/200ML 200 ML IV ONE (15:40)
[2025-01-09] MEDS ORDERED: ONDANSETRON HCL 4 MG/2 ML VIAL IV PRN (16:15)
[2025-01-09] MEDS ORDERED: MIDAZOLAM HCL 2MG/2ML 2ml VIAL (1mg/ml) IV PRN (16:15)
[2025-01-09] MEDS ORDERED: MORPHINE SULFATE 4 MG/ML SYR/VIAL IV PRN (16:15)
[2025-01-09] MEDS: ACCU-CHEK COMFORT CURVE STRIP VI ONE (16:15)
[2025-01-09] MEDS: IOHEXOL 300 MG/ML 100ML BOTTLE IJ ONE (16:16)
[2025-01-09] MEDS ORDERED: PROPOFOL 10 MG/ML 20 ML IV ONE (16:25)
--- NOTE | 2025-01-09 17:21 | DVHNC2 ---
Procedure - OPERATIVE REPORT Pre-op. Diagnosis: 11 mm right proximal ureteral calculus right percutaneous nephrostomy tube in-situ Post-op. Diagnosis: Same as pre-op diagnosis Operation: Right ureteroscopy/pyeloscopy, laser lithotripsy with renal evacuation Cystoscopy with right ureteral stent placement right percutaneous nephrostomy tube removal Anesthesia: General Indications: Patient with chronic right percutaneous nephrostomy tube placement due to 1.1 cm proximal ureteral calculus. The indications, risks, complications, alternatives and benefits were discussed. All questions were encouraged and answered. Patient is aware of risks/complications including but not limited to infection, bleeding, persistent pain, possible ureteral injury/ureteral stricture requiring additional surgical management, urethral injury, urethral stricture and meatal stenosis. Details of Procedure: After obtaining the consent, patient was taken to OR suite and underwent general anesthesia. Preop antibiotic was given. Timeout was performed and deemed to be correct. With the patient positioned in the lithotomy, the area of the genitalia prepped and draped in usual sterile fashion. 22 F Cystoscope was used to access the urethra and bladder. A sensor tip guide wire was advanced through the scope into the left ureter all the way to the collecting system under fluoroscopic control. I advanced Navigator ureteral access sheet over the working wire all the way to the proximal ureter under fluoroscopy control, then the inner sheet and the working wire was removed. The Digital flexible urete roscope (Calyxo) was advanced through the access sheet. The stone was visualized in the proximal ureter.. Now using a 200 micron laser fiber the stone was blasted into small fragments and suctioned out while in dusting mode. Some of the stone fragments migrated into the renal calyceal system. The Calyxo ureteroscope was access into the renal pelvis as well as into upper calyceal sy stem and stone dusting was performed with renal evacuation. Ureteroscope was then removed . Sensory guidewire was placed into the renal pelvis and the ureteral sheath was removed. Cystoscopy is performed and a five Ghanaian by 22 cm polaris loop ureteral stent was positioned into the right renal system. Under direct vision, the right percutaneous nephrostomy tube was removed. Patient was placed in supine position and awakened. She was transferred to in stable condition. Specimens: renal / Ureteral stone fragments Complications: None Findings: EBL: Minimal JOSE M GREGORY MD Jan 09, 2025 17:21
[2025-01-09] MEDS: HYDROmorphone HCL 2 MG/ML VL/or syr IV PRN (17:46)
[2025-01-09] MEDS: hydrALAZINE HCL 20 MG/ML VL IV PRN (17:49)
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
--- NOTE | 2025-01-09 23:35 | DVH ---
Exam: XY KUB ABDOMEN SINGLE VIEW, XY C ARM FLUOROSCOPY UP TO 60MIN Indication: STENT Comparison: CT abdomen/pelvis 12/2024 Technique: Intraoperative fluoroscopy Findings: Multiple intraoperative fluoroscopic images demonstrating retrograde contrast opacification of the ur eter and collecting system, laterality not labeled on provided images although right percutaneous nep hrostomy is present on comparison CT. The renal pelvis is dilated. No obvious filling defect. Final image demonstrates the proximal portion of the ureteral stent in place, in the percutaneous nephrost rachael no longer visualized. Fluoroscopy time: 66.7 seconds Fluoroscopy dose: 19 mGy Number of images: 8 Impression: 1. Intraoperative fluoroscopy obtained without a radiologist present. See procedural note for full d etails.
[2025-01-10] VITALS (8 sets, daily range): BP systolic 105–147; BP diastolic 49–73; PULSE 76–92; RESP 14–20; TEMP 97.7–98.3; O2SAT 96–99
[2025-01-10] MEDS ORDERED: diphenhdrAMINE HCL 50 MG/1 ML VL IV PRN (06:15)
[2025-01-10 07:52] LABS: Mean Corpuscular Volume 80.1 fL (80.0-100.0); Nucleated Red Blood Cells % 0.1 %
[2025-01-10 07:55] LABS: Hematocrit 34.8 % (36.0-46.0); Hemoglobin 11.5 g/dL (12.2-16.2); Mean Corpuscular Hemoglobin 26.5 pg (28.0-32.0)
[2025-01-10 08:09] LABS: Calcium 9.1 mg/dL (8.7-10.4); Chloride 103 mmol/L (98-107); Potassium 4.1 mmol/L (3.5-5.1)
[2025-01-10 08:10] LABS: Anion Gap 16 (5-15); Carbon Dioxide 16 mmol/L (20-31); Sodium 135 mmol/L (136-145)
[2025-01-10 08:15] LABS: BUN/Creatinine Ratio 12.8 (10.0-20.0); Blood Urea Nitrogen 20 mg/dL (9-23)
[2025-01-10] MEDS ORDERED: DEXTROSE (50%) 50ML SYRG IV PRN (08:15)
[2025-01-10 08:35] LABS: Glucose 275 mg/dL (74-106)
[2025-01-10] MEDS: ACCU-CHEK COMFORT CURVE STRIP VI SCH (10:34)
[2025-01-10] MEDS: INSULIN LANTUS (GLARGINE) 1 /0.01ml (100units/ml) SC ONE (10:46)
[2025-01-10] MEDS: InsuLIN REG 1unit/0.01ml Soln (100units/ml) SC SCH (10:47)
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
[2025-01-10] MEDS: ACETAMINOPHEN 325 MG TAB PO PRN (16:44)
[2025-01-10] MEDS: ENOXAPARIN SOD 40 MG/0.4 ML SYRINGE SC ONE (16:51)
[2025-01-10] MEDS: INSULIN LANTUS (GLARGINE) 1 /0.01ml (100units/ml) SC SCH (22:32)
[2025-01-11 01:00] VITALS: BP 131/69; PULSE 76; RESP 18; TEMP 98.4; O2SAT 95
[2025-01-11 05:00] VITALS: BP 142/67; PULSE 62; RESP 17; TEMP 97.9; O2SAT 97
[2025-01-11 07:09] LABS: Hematocrit 33.4 % (36.0-46.0); Hemoglobin 11.1 g/dL (12.2-16.2); Mean Corpuscular Hemoglobin 26.3 pg (28.0-32.0); Mean Corpuscular Volume 79.2 fL (80.0-100.0); Nucleated Red Blood Cells % 0.0 %
[2025-01-11 07:16] LABS: Potassium 3.8 mmol/L (3.5-5.1); Sodium 144 mmol/L (136-145)
[2025-01-11 07:17] LABS: Anion Gap 11 (5-15); Calcium 9.1 mg/dL (8.7-10.4); Carbon Dioxide 22 mmol/L (20-31); Chloride 111 mmol/L (98-107)
[2025-01-11 07:22] LABS: BUN/Creatinine Ratio 12.4 (10.0-20.0); Blood Urea Nitrogen 21 mg/dL (9-23)
[2025-01-11 07:26] LABS: Glucose 138 mg/dL (74-106)
[2025-01-11 08:00] VITALS: PULSE 64; O2SAT 96
[2025-01-11] MEDS: ENOXAPARIN SOD 40 MG/0.4 ML SYRINGE SC SCH (10:25)
[2025-01-11] MEDS ORDERED: CIPR-273 PO (11:48)
[2025-01-11 13:09] VITALS: BP 119/51; PULSE 68; RESP 16; TEMP 36.6; O2SAT 99
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
--- NOTE | 2025-01-12 08:26 | ECG ---
[facility] Test Date: 2025-01-09 Test Time: 13:53:55 Pat Name: OLUIS DE GUZMAN Department: Room: 0250T B Gender: F Events Director: GILBERTO : 1960 Requested By: HUGO CM Order Number: [id number] Reading MD: Bar Guo Measurements Intervals [place] Rate: 72 P: 30 [place]: 142 QRS: 7 QRSD: 88 T: -18 QT: 428 QTc: 468 Interpretive Statements Normal sinus rhythm Nonspecific T wave abnormality Electronically Signed On 01-13-2025 13:19:20 PDT by Bar Guo Please click the below link to view image of tracing.
[2025-01-12 11:18] LABS: Hepatitis B Surface Antigen Negative (Negative); Hepatitis C Antibody Negative (Negative)
== END 2025-01-11 14:58 | disposition home or self-care (01) | DRG 659 ==
LOC: ER 14:10 → OVERFLOW 22:06 → EAST 23:54 → TELE-EAST 01-09 17:51
PROVIDERS: ADMIT Internal Medicine Geriatric Medicine; ATTEND Anesthesiology
PROC: 0T25X0Z Change Drainage Device in Kidney, External Approach (ICD-10-PCS; principal; 2025-01-08)
PROC: 0T768DZ Dilation of Right Ureter with Intraluminal Device, Via Natural or Artificial Opening Endoscopic (ICD-10-PCS; 2025-01-09)
DX: T83.032A Leakage of nephrostomy catheter, initial encounter (principal); N17.0 Acute kidney failure with tubular necrosis; N20.2 Calculus of kidney with calculus of ureter; N30.01 Acute cystitis with hematuria; I12.9 Hypertensive chronic kidney disease with stage 1 through stage 4 chronic kidney disease, or unspecified chronic kidney disease; N18.9 Chronic kidney disease, unspecified; E11.22 Type 2 diabetes mellitus with diabetic chronic kidney disease; E11.40 Type 2 diabetes mellitus with diabetic neuropathy, unspecified; N13.9 Obstructive and reflux uropathy, unspecified; G40.909 Epilepsy, unspecified, not intractable, without status epilepticus; F32.A Depression, unspecified; E66.9 Obesity, unspecified; Z68.33 Body mass index [BMI] 33.0-33.9, adult; E11.65 Type 2 diabetes mellitus with hyperglycemia; Y84.8 Other medical procedures as the cause of abnormal reaction of the patient, or of later complication, without mention of misadventure at the time of the procedure; G47.33 Obstructive sleep apnea (adult) (pediatric); I25.2 Old myocardial infarction; Z79.84 Long term (current) use of oral hypoglycemic drugs; Z83.3 Family history of diabetes mellitus; Z85.05 Personal history of malignant neoplasm of liver; Z85.07 Personal history of malignant neoplasm of pancreas; Z87.442 Personal history of urinary calculi; Z88.5 Allergy status to narcotic agent; Z88.0 Allergy status to penicillin; Y92.89 Other specified places as the place of occurrence of the external cause
CPT/HCPCS: 36415; 50435; 71045; 74018; 74176; 75984; 76000; 76775; 80048; 80053; 81001; 82962; 83036; 85025; 85610; 86803; 87086; 87340; 93005; 96365; 96372; 99152; G0378; J1100; J1815; J2250; J2470; J2704; Q9967